=== PATIENT | female | born 1930 | race Two or more races ===

== ENCOUNTER 2016-11-23 21:13 | Inpatient (IN) | payer OTHER, MEDICARE ==
[~2016-11-23] VITALS: Ht 157.5 cm; Wt 75.7 kg
[~2016-11-23 21:13] MED LIST: FEE EMEERGENCY 1 MIN EA MC ONE
[2016-11-23] MEDS ORDERED: HYDROMORPHONE INJ 2 MG/ML DISP.SYRIN IV ONE (22:30)
[2016-11-23] MEDS ORDERED: ONDANSETRON HCL/PF 4 MG/2 ML VIAL IVP ONE (22:30)
[2016-11-23] MEDS ORDERED: IV NS 0.9% 1,000 ML BAG IV ONE (22:30)
[2016-11-23] MEDS ORDERED: IV SET PRIMARY 1 EA INFUS.SET MC ONE (22:43)
[2016-11-23] MEDS ORDERED: ONDANSETRON HCL/PF 4 MG/2 ML VIAL ONE (22:43)
[2016-11-23] MEDS ORDERED: IV NS 0.9% 1,000 ML ONE (22:43)
[2016-11-23] MEDS ORDERED: HYDROMORPHONE 1 MG/1 ML DISP.SYRIN ONE (22:43)
[2016-11-23] MEDS ORDERED: LEVOFLOXACIN 750 MG /D5W 150ML 150 ML IV ONE ×2 (23:30→23:37)
[2016-11-23 23:32] LABS: BASOPHILS % (AUTO) 0.2 % (0.0-2.0); DIFF TOTAL % 100 %; EOSINOPHILS % (AUTO) 0.1 % (0.0-6.0); HEMATOCRIT 40 % (33-45); HEMOGLOBIN 13.3 g/dL (11.5-14.8); LYMPHOCYTES # (AUTO) 0.6 /CMM (0.8-4.8); MEAN CORPUSCULAR HEMOGLOBIN 31 PG (26.0-33.0); MEAN CORPUSCULAR HGB CONC 34 g/dl (31.0-36.0); MEAN CORPUSCULAR VOLUME 91 fL (82-100); MONOCYTES % (AUTO) 8.7 % (2.0-12.0); NEUTROPHILS # (AUTO) 9.7 /CMM (1.8-8.9); PLATELET COUNT (AUTO) 273 /CMM (150-450); RED BLOOD CELL COUNT(AUTO) 4.36 MIL/uL (4.0-5.2); WHITE BLOOD COUNT (AUTO) 11.3 K/uL (4.3-11.0)
[2016-11-23 23:37] LABS: CALCIUM, SERUM 9.9 mg/dL (8.5-10.1); CREATININE 1.4 mg/dL (0.6-1.3); POTASSIUM 4.1 mmol/L (3.5-5.1)
[2016-11-23] MEDS ORDERED: IV SET PRIMARY PUMP SET 1 EA INFUS.SET MC ONE (23:37)
[2016-11-23 23:41] LABS: INR 1.59 (0.87-1.13); PROTHROMBIN TIME 17.2 SECS (9.5-12.7)
[2016-11-23 23:43] LABS: ALBUMIN 4.1 g/dL (3.4-5.0); BILIRUBIN,DIRECT 0.4 mg/dL (0.0-0.2); BILIRUBIN,TOTAL 1.3 mg/dL (0.2-1.0); INDIRECT BILIRUBIN 0.9 mg/dL (0.0-1.1); TOTAL PROTEIN, SERUM 7.8 g/dL (6.4-8.2)
[2016-11-23 23:44] LABS: TROPONIN I 0.374 ng/mL (0.00-0.056)
[2016-11-23 23:50] LABS: ADD UA MICROSCOPIC YES; KETONES,URINE NEGATIVE (NEGATIVE); LEUKOCYTE ESTERASE ,URINE 1+ (NEGATIVE)
[2016-11-23] MEDS ORDERED: LORAZEPAM INJ 2 MG/ML VIAL ONE (23:54)
[2016-11-23 23:57] LABS: ADD URINE CULTURE YES; RBC,URINE 0-2 /HPF (0-2); WBC,URINE 21-50 /HPF (0-3)
[2016-11-24] VITALS (8 sets, daily range): BP systolic 94–157; BP diastolic 40–93
[2016-11-24] MEDS ORDERED: NITROGLYCERIN PACKET 1 GM PACKET ONE (00:26)
[2016-11-24] MEDS ORDERED: ASPIRIN 81 MG TAB.CHEW ONE (00:26)
[2016-11-24] MEDS ORDERED: NITROGLYCERIN PACKET 1 GM PACKET TOP ONE (00:30)
[2016-11-24] MEDS ORDERED: PIPERACILLIN /TAZOBACTAM 3.375 G in IV D5W 50 ML IV ONE (00:30)
[2016-11-24] MEDS ORDERED: ASPIRIN 81 MG TAB.CHEW PO ONE (00:30)
[2016-11-24 00:31] LABS: LACTIC ACID 2.3 mmol/L (0.4-2.0)
[2016-11-24] MEDS ORDERED: HYDROCODONE/APAP 5/325MG 1 EACH TABLET PO PRN (01:00)
[2016-11-24] MEDS ORDERED: ENOXAPARIN SODIUM 40 MG/0.4 ML DISP.SYRIN SQ SCH (01:00)
[2016-11-24] MEDS ORDERED: MAG HYDROX/AL HYDROX/SIMETH 30 ML UDC PO PRN (01:00)
[2016-11-24] MEDS ORDERED: ACETAMINOPHEN 325 MG TABLET PO PRN (01:00)
[2016-11-24] MEDS ORDERED: ZOLPIDEM TARTRATE 5 MG TABLET PO PRN (01:00)
[2016-11-24] MEDS ORDERED: MAGNESIUM HYDROXIDE 30 ML UDC PO PRN (01:00)
[2016-11-24 01:02] LABS: *LACTIC ACID REFLEX FLAG YES
[2016-11-24] MEDS ORDERED: IV D5W 50 ML IV ONE (02:06)
[2016-11-24] MEDS ORDERED: PIPERACILLIN /TAZOBACTAM 3.375 G VIAL IV ONE (02:06)
[2016-11-24] MEDS ORDERED: IV SET PRIMARY PUMP SET 1 EA INFUS.SET MC ONE (02:13)
[2016-11-24] MEDS ORDERED: IV NS 0.9% 1,000 ML ONE (02:14)
[2016-11-24] MEDS ORDERED: SECONDARY IV SET 1 EA INFUS.SET MC ONE ×2 (02:14→12:48)
[2016-11-24] MEDS: IV NS 0.9% 1,000 ML IV PRN ×2 (02:32→23:24)
[2016-11-24] MEDS ORDERED: ONDANSETRON HCL/PF 4 MG/2 ML VIAL ONE (03:16)
[2016-11-24] MEDS ORDERED: MORPHINE SULFATE INJ 4 MG/ML DISP.SYRIN ONE (04:25)
[2016-11-24] MEDS: ONDANSETRON HCL/PF 4 MG/2 ML VIAL IVP PRN ×2 (04:27→15:40)
[2016-11-24] MEDS: MORPHINE SULFATE INJ 2 MG/ML DISP.SYRIN IV PRN ×2 (04:36→09:13)
[2016-11-24] MEDS ORDERED: POTA10CA43 PO (06:39)
[2016-11-24] MEDS ORDERED: WARF4TAB6 PO (06:39)
[2016-11-24] MEDS ORDERED: FURO40TA5 PO (06:39)
[2016-11-24] MEDS ORDERED: DIGO125T PO (06:39)
[2016-11-24] MEDS ORDERED: ASPI81TA2 PO (06:39)
[2016-11-24] MEDS ORDERED: ATOR80TA PO (06:39)
[2016-11-24] MEDS ORDERED: METO-304 PO (06:39)
[2016-11-24 06:47] LABS: BASOPHILS % (AUTO) 0.3 % (0.0-2.0); DIFF TOTAL % 100 %; EOSINOPHILS % (AUTO) 0.1 % (0.0-6.0); HEMATOCRIT 34 % (33-45); HEMOGLOBIN 11.2 g/dL (11.5-14.8); LYMPHOCYTES # (AUTO) 0.4 /CMM (0.8-4.8); MEAN CORPUSCULAR HEMOGLOBIN 30 PG (26.0-33.0); MEAN CORPUSCULAR HGB CONC 33 g/dl (31.0-36.0); MEAN CORPUSCULAR VOLUME 91 fL (82-100); MONOCYTES # (AUTO) 0.8 /CMM (0.1-1.30); MONOCYTES % (AUTO) 11.2 % (2.0-12.0); NEUTROPHILS # (AUTO) 5.9 /CMM (1.8-8.9); NEUTROPHILS % (AUTO) 83.4 % (43.0-81.0); PLATELET COUNT (AUTO) 222 /CMM (150-450); RED BLOOD CELL COUNT(AUTO) 3.71 MIL/uL (4.0-5.2); WHITE BLOOD COUNT (AUTO) 7.1 K/uL (4.3-11.0)
[2016-11-24 06:58] LABS: ALBUMIN 3.1 g/dL (3.4-5.0); CALCIUM, SERUM 8.7 mg/dL (8.5-10.1); CREATININE 1.3 mg/dL (0.6-1.3); PHOSPHORUS 3.7 mg/dL (2.5-4.9); POTASSIUM 4.2 mmol/L (3.5-5.1); TOTAL PROTEIN, SERUM 6.2 g/dL (6.4-8.2)
[2016-11-24 07:01] LABS: LACTIC ACID 1.3 mmol/L (0.4-2.0)
[2016-11-24] MEDS: PANTOPRAZOLE 40 MG VIAL IV SCH (08:42)
[2016-11-24] MEDS ORDERED: DIATR MEGLU/DIATRIZOATE SODIUM 120 ML BOTTLE (GASTROGRAPHIN) ONE (10:18)
[2016-11-24] MEDS: Magnesium 1GM/D5W 100ML PREMIX 100 ML IV SCH ×2 (12:56→14:21)
[2016-11-24] MEDS ORDERED: TPN/PPN PER PHARMACY XX PRN (19:00)
[2016-11-24] MEDS: ENOXAPARIN SODIUM 30 MG/0.3 ML DISP.SYRIN SQ SCH (21:55)
[2016-11-25] VITALS: BP 121/74
[2016-11-25] MEDS: MORPHINE SULFATE INJ 2 MG/ML DISP.SYRIN IV PRN (01:58)
[2016-11-25 04:00] VITALS: BP 110/47
[2016-11-25 08:00] VITALS: BP 110/65
[2016-11-25 08:06] LABS: CALCIUM, SERUM 8.3 mg/dL (8.5-10.1); CREATININE 1.6 mg/dL (0.6-1.3); POTASSIUM 3.5 mmol/L (3.5-5.1)
[2016-11-25] MEDS: PANTOPRAZOLE 40 MG VIAL IV SCH (08:45)
[2016-11-25] MEDS ORDERED: IV D5/0.45 NACL 1,000 ML IV PRN (10:53)
[2016-11-25] MEDS ORDERED: TPN BAG #2 IV PRN ×4 (11:00)
[2016-11-25] MEDS ORDERED: TPN BAG #1 IV PRN ×6 (11:00)
[2016-11-25] MEDS ORDERED: TPN BAG #3 IV PRN ×6 (11:00)
[2016-11-25] MEDS ORDERED: FEE TPN 1 MIN EA MC ONE (11:24)
[2016-11-25] MEDS ORDERED: DEXTROSE 50%-WATER 50 ML DISP.SYRIN IV PRN (11:30)
[2016-11-25] MEDS: BLOOD SUGAR DIAGNOSTIC 1 EACH STRIP IN SCH ×2 (11:38→17:10)
[2016-11-25 12:00] VITALS: BP 117/47
[2016-11-25] MEDS ORDERED: FILTER SET SAVER IV SET 1 EA INFUS.SET MC ONE (14:24)
[2016-11-25] MEDS ORDERED: IV SET PRIMARY PUMP SET 1 EA INFUS.SET MC ONE (14:25)
[2016-11-25 16:00] VITALS: BP 132/69
[2016-11-25] MEDS: INSULIN REGULAR, HUMAN 100 UNIT/ML 3 ML VIAL SQ PRN (17:12)
[2016-11-25 20:00] VITALS: BP 111/66
[2016-11-25] MEDS: ENOXAPARIN SODIUM 30 MG/0.3 ML DISP.SYRIN SQ SCH (21:36)
[2016-11-26] VITALS: BP 107/56
[2016-11-26] MEDS: BLOOD SUGAR DIAGNOSTIC 1 EACH STRIP IN SCH ×4 (00:04→17:41)
[2016-11-26] MEDS: INSULIN REGULAR, HUMAN 100 UNIT/ML 3 ML VIAL SQ PRN ×3 (00:09→12:22)
[2016-11-26 04:00] VITALS: BP 114/49
[2016-11-26] MEDS ORDERED: IV SET PRIMARY PUMP SET 1 EA INFUS.SET MC ONE (04:46)
[2016-11-26] MEDS ORDERED: FILTER SET SAVER IV SET 1 EA INFUS.SET MC ONE (05:16)
[2016-11-26] MEDS ORDERED: IV D5W 50 ML IV ONE (06:53)
[2016-11-26] MEDS ORDERED: CEFTRIAXONE 1 G VIAL ONE (06:53)
[2016-11-26] MEDS ORDERED: SECONDARY IV SET 1 EA INFUS.SET MC ONE (06:55)
[2016-11-26 07:00] VITALS: BP 106/74
[2016-11-26] MEDS ORDERED: CEFTRIAXONE 1 G in IV D5W 50 ML IV SCH (07:00)
[2016-11-26 07:12] LABS: THYROID STIMULATING HORMONE 0.726 uIU/mL (0.358-3.74)
[2016-11-26 07:29] LABS: CALCIUM, SERUM 8.3 mg/dL (8.5-10.1); CREATININE 1.3 mg/dL (0.6-1.3); PHOSPHORUS 2.5 mg/dL (2.5-4.9); POTASSIUM 3.5 mmol/L (3.5-5.1)
[2016-11-26] MEDS: PANTOPRAZOLE 40 MG VIAL IV SCH (09:17)
[2016-11-26] MEDS ORDERED: TPN BAG #3 IV PRN ×6 (09:51)
[2016-11-26] MEDS ORDERED: TPN BAG #5 IV PRN ×6 (10:00)
[2016-11-26] MEDS ORDERED: TPN BAG #4 IV PRN ×4 (10:00)
[2016-11-26 12:00] VITALS: BP 124/77
[2016-11-26] MEDS: MORPHINE SULFATE INJ 2 MG/ML DISP.SYRIN IV PRN (12:16)
[2016-11-26] MEDS: ONDANSETRON HCL/PF 4 MG/2 ML VIAL IVP PRN (14:04)
[2016-11-26 16:00] VITALS: BP 128/63
[2016-11-26] MEDS ORDERED: FERROUS SULFATE (325 MG) 325 MG/TAB TABLET PO SCH (17:00)
[2016-11-26 20:00] VITALS: BP 128/61
[2016-11-26] MEDS: ENOXAPARIN SODIUM 30 MG/0.3 ML DISP.SYRIN SQ SCH (21:00)
[2016-11-27] VITALS: BP 133/79
[2016-11-27] MEDS: BLOOD SUGAR DIAGNOSTIC 1 EACH STRIP IN SCH ×4 (00:15→17:49)
[2016-11-27] MEDS: INSULIN REGULAR, HUMAN 100 UNIT/ML 3 ML VIAL SQ PRN ×3 (00:17→18:04)
[2016-11-27 04:00] VITALS: BP 125/91
[2016-11-27] MEDS: IV D5/0.45 NACL 1,000 ML IV PRN (05:14)
[2016-11-27] MEDS: CEFTRIAXONE 1 G in IV D5W 50 ML IV SCH (06:28)
[2016-11-27] MEDS ORDERED: IV SET PRIMARY PUMP SET 1 EA INFUS.SET MC ONE ×2 (07:15→14:45)
[2016-11-27] MEDS ORDERED: FILTER SET SAVER IV SET 1 EA INFUS.SET MC ONE (07:16)
[2016-11-27 08:00] VITALS: BP 143/83
[2016-11-27 09:24] LABS: CALCIUM, SERUM 8.4 mg/dL (8.5-10.1); PHOSPHORUS 1.9 mg/dL (2.5-4.9); POTASSIUM 3.4 mmol/L (3.5-5.1)
[2016-11-27] MEDS: PANTOPRAZOLE 40 MG VIAL IV SCH (09:26)
[2016-11-27] MEDS: MORPHINE SULFATE INJ 2 MG/ML DISP.SYRIN IV PRN (10:22)
[2016-11-27 10:25] LABS: DIFF TOTAL % 100 %; EOSINOPHILS # (AUTO) 0.1 /CMM (0.0-0.7); EOSINOPHILS % (AUTO) 0.7 % (0.0-6.0); HEMATOCRIT 32 % (33-45); HEMOGLOBIN 10.6 g/dL (11.5-14.8); LYMPHOCYTES # (AUTO) 0.5 /CMM (0.8-4.8); LYMPHOCYTES % (AUTO) 4.6 % (20.0-44.0); MEAN CORPUSCULAR HEMOGLOBIN 30 PG (26.0-33.0); MEAN CORPUSCULAR HGB CONC 33 g/dl (31.0-36.0); MEAN CORPUSCULAR VOLUME 90 fL (82-100); MONOCYTES # (AUTO) 0.6 /CMM (0.1-1.30); NEUTROPHILS % (AUTO) 89.7 % (43.0-81.0); PLATELET COUNT (AUTO) 186 /CMM (150-450); RED BLOOD CELL COUNT(AUTO) 3.53 MIL/uL (4.0-5.2); WHITE BLOOD COUNT (AUTO) 11.1 K/uL (4.3-11.0)
[2016-11-27] MEDS ORDERED: SECONDARY IV SET 1 EA INFUS.SET MC ONE (11:18)
[2016-11-27] MEDS: POTASSIUM PHOSPHATE MM 7.5 MMOL in IV D5W 100 ML IV SCH ×2 (11:28→16:07)
[2016-11-27] MEDS: CYANOCOBALAMIN 1,000 MCG/ML VIAL IM SCH (12:49)
[2016-11-27] MEDS ORDERED: ALBUTEROL FS 2.5 MG/3 ML VIAL.NEB NEB PRN (14:30)
[2016-11-27] MEDS: SOD FERRIC GLUC 125 MG in IV NS 0.9% 100 ML IV SCH (14:49)
[2016-11-27 16:00] VITALS: BP 123/73
[2016-11-27] MEDS ORDERED: TPN BAG #6 IV PRN ×4 (16:00)
[2016-11-27] MEDS ORDERED: ACETYLCYSTEINE 10% 3,000 MG/30 ML VIAL PO SCH (17:00)
[2016-11-27 20:00] VITALS: BP 110/69
[2016-11-27 21:16] VITALS: BP 106/59
[2016-11-27] MEDS: ENOXAPARIN SODIUM 30 MG/0.3 ML DISP.SYRIN SQ SCH (21:53)
[2016-11-28] MEDS ORDERED: FILTER SET SAVER IV SET 1 EA INFUS.SET MC ONE ×2 (01:02→14:31)
[2016-11-28] MEDS ORDERED: IV SET PRIMARY PUMP SET 1 EA INFUS.SET MC ONE ×2 (01:04→15:30)
[2016-11-28] MEDS: BLOOD SUGAR DIAGNOSTIC 1 EACH STRIP IN SCH ×4 (01:15→18:57)
[2016-11-28 04:00] VITALS: BP 125/78
[2016-11-28] MEDS: CEFTRIAXONE 1 G in IV D5W 50 ML IV SCH (06:29)
[2016-11-28 07:36] LABS: CALCIUM, SERUM 8.6 mg/dL (8.5-10.1); CREATININE 0.9 mg/dL (0.6-1.3); PHOSPHORUS 2.4 mg/dL (2.5-4.9); POTASSIUM 3.6 mmol/L (3.5-5.1)
[2016-11-28 08:38] VITALS: BP 122/65
[2016-11-28] MEDS: MORPHINE SULFATE INJ 2 MG/ML DISP.SYRIN IV PRN ×2 (09:29→13:25)
[2016-11-28] MEDS: PANTOPRAZOLE 40 MG VIAL IV SCH (09:29)
[2016-11-28] MEDS: CYANOCOBALAMIN 1,000 MCG/ML VIAL IM SCH (10:40)
[2016-11-28 12:00] VITALS: BP 121/81
[2016-11-28] MEDS ORDERED: PHYTONADIONE 5 MG TABLET PO ONE (12:00)
[2016-11-28 12:50] LABS: BASOPHILS % (AUTO) 0.1 % (0.0-2.0); DIFF TOTAL % 100 %; EOSINOPHILS # (AUTO) 0.2 /CMM (0.0-0.7); EOSINOPHILS % (AUTO) 1.4 % (0.0-6.0); HEMATOCRIT 34 % (33-45); HEMOGLOBIN 11.3 g/dL (11.5-14.8); LYMPHOCYTES # (AUTO) 0.5 /CMM (0.8-4.8); LYMPHOCYTES % (AUTO) 4.2 % (20.0-44.0); MEAN CORPUSCULAR HEMOGLOBIN 30 PG (26.0-33.0); MEAN CORPUSCULAR HGB CONC 34 g/dl (31.0-36.0); MEAN CORPUSCULAR VOLUME 89 fL (82-100); MONOCYTES # (AUTO) 0.6 /CMM (0.1-1.30); MONOCYTES % (AUTO) 5.2 % (2.0-12.0); NEUTROPHILS # (AUTO) 9.5 /CMM (1.8-8.9); NEUTROPHILS % (AUTO) 89.1 % (43.0-81.0); PLATELET COUNT (AUTO) 207 /CMM (150-450); RED BLOOD CELL COUNT(AUTO) 3.76 MIL/uL (4.0-5.2); WHITE BLOOD COUNT (AUTO) 10.6 K/uL (4.3-11.0)
[2016-11-28] MEDS ORDERED: FUROSEMIDE 20 MG/2 ML VIAL IV ONE (13:00)
[2016-11-28] MEDS ORDERED: FAT EMULSION 20% 500 ML in PREMIX 1 EA IV SCH (14:00)
[2016-11-28] MEDS ORDERED: TPN BAG #8 IV PRN ×4 (14:00)
[2016-11-28] MEDS ORDERED: TPN BAG #7 IV PRN ×6 (14:00)
[2016-11-28] MEDS: ONDANSETRON HCL/PF 4 MG/2 ML VIAL IVP PRN (14:04)
[2016-11-28] MEDS ORDERED: FILTER [FOR TRIPLE MIX] SET 1 EA INFUS.SET MC ONE (14:32)
[2016-11-28] MEDS: SOD FERRIC GLUC 125 MG in IV NS 0.9% 100 ML IV SCH (14:55)
[2016-11-28] MEDS ORDERED: SECONDARY IV SET 1 EA INFUS.SET MC ONE (15:30)
[2016-11-28 20:00] VITALS: BP 137/70
[2016-11-29] VITALS (20 sets, daily range): BP systolic 91–154; BP diastolic 46–89
[2016-11-29] MEDS: BLOOD SUGAR DIAGNOSTIC 1 EACH STRIP IN SCH ×4 (00:51→18:00)
[2016-11-29] MEDS: MORPHINE SULFATE INJ 2 MG/ML DISP.SYRIN IV PRN ×4 (04:28→12:39)
[2016-11-29] MEDS ORDERED: IV SET PRIMARY PUMP SET 1 EA INFUS.SET MC ONE ×3 (06:37→20:53)
[2016-11-29] MEDS ORDERED: FILTER SET SAVER IV SET 1 EA INFUS.SET MC ONE (06:38)
[2016-11-29] MEDS: CEFTRIAXONE 1 G in IV D5W 50 ML IV SCH (07:06)
[2016-11-29] MEDS: IV D5/0.45 NACL 1,000 ML IV PRN ×2 (07:06→20:42)
[2016-11-29 07:29] LABS: BASOPHILS % (AUTO) 0.1 % (0.0-2.0); DIFF TOTAL % 100 %; EOSINOPHILS # (AUTO) 0.2 /CMM (0.0-0.7); EOSINOPHILS % (AUTO) 1.4 % (0.0-6.0); HEMATOCRIT 34 % (33-45); HEMOGLOBIN 11.5 g/dL (11.5-14.8); LYMPHOCYTES # (AUTO) 0.6 /CMM (0.8-4.8); MEAN CORPUSCULAR HEMOGLOBIN 30 PG (26.0-33.0); MEAN CORPUSCULAR HGB CONC 34 g/dl (31.0-36.0); MEAN CORPUSCULAR VOLUME 89 fL (82-100); MONOCYTES # (AUTO) 1.2 /CMM (0.1-1.30); MONOCYTES % (AUTO) 7.8 % (2.0-12.0); NEUTROPHILS # (AUTO) 13.9 /CMM (1.8-8.9); NEUTROPHILS % (AUTO) 86.7 % (43.0-81.0); PLATELET COUNT (AUTO) 219 /CMM (150-450); RED BLOOD CELL COUNT(AUTO) 3.82 MIL/uL (4.0-5.2)
[2016-11-29 07:36] LABS: INR 1.03 (0.87-1.13); PROTHROMBIN TIME 11.1 SECS (9.5-12.7)
[2016-11-29 07:42] LABS: CALCIUM, SERUM 8.4 mg/dL (8.5-10.1); CREATININE 0.8 mg/dL (0.6-1.3); PHOSPHORUS 2.8 mg/dL (2.5-4.9); POTASSIUM 3.6 mmol/L (3.5-5.1)
[2016-11-29] MEDS ORDERED: TPN BAG #8 IV PRN ×5 (09:38)
[2016-11-29] MEDS: CYANOCOBALAMIN 1,000 MCG/ML VIAL IM SCH (09:43)
[2016-11-29] MEDS: PANTOPRAZOLE 40 MG VIAL IV SCH (09:43)
[2016-11-29] MEDS ORDERED: TPN BAG #9 IV PRN ×7 (10:00)
[2016-11-29] MEDS ORDERED: MORPHINE SULFATE INJ 4 MG/ML DISP.SYRIN IV PRN (13:30)
[2016-11-29] MEDS: SOD FERRIC GLUC 125 MG in IV NS 0.9% 100 ML IV SCH (14:25)
[2016-11-29] MEDS ORDERED: FENTANYL PF 100MCG/2ML AMPUL ONE ×2 (17:00→18:26)
[2016-11-29] MEDS ORDERED: SUCCINYLCHOLINE CHLORIDE 20 MG/ML VIAL ONE (17:00)
[2016-11-29] MEDS ORDERED: BUPIVACAINE 0.5 % PF 150 MG/30 ML VIAL ONE (18:58)
[2016-11-29] MEDS ORDERED: ANESTHESIA TRAY IN PYXIS 1 EA TRAY MC ONE (19:29)
[2016-11-29 20:23] LABS: BASOPHILS % (AUTO) 0.1 % (0.0-2.0); DIFF TOTAL % 100 %; EOSINOPHILS % (AUTO) 0.2 % (0.0-6.0); HEMATOCRIT 36 % (33-45); LYMPHOCYTES # (AUTO) 0.5 /CMM (0.8-4.8); LYMPHOCYTES % (AUTO) 2.4 % (20.0-44.0); MEAN CORPUSCULAR HEMOGLOBIN 30 PG (26.0-33.0); MEAN CORPUSCULAR HGB CONC 33 g/dl (31.0-36.0); MEAN CORPUSCULAR VOLUME 91 fL (82-100); MONOCYTES % (AUTO) 4.7 % (2.0-12.0); NEUTROPHILS # (AUTO) 20.1 /CMM (1.8-8.9); NEUTROPHILS % (AUTO) 92.6 % (43.0-81.0); PLATELET COUNT (AUTO) 268 /CMM (150-450); RED BLOOD CELL COUNT(AUTO) 3.99 MIL/uL (4.0-5.2); WHITE BLOOD COUNT (AUTO) 21.7 K/uL (4.3-11.0)
[2016-11-29 20:24] LABS: CALCIUM, SERUM 8.3 mg/dL (8.5-10.1); CREATININE 0.9 mg/dL (0.6-1.3); POTASSIUM 3.8 mmol/L (3.5-5.1)
[2016-11-29] MEDS ORDERED: DOCUSATE SODIUM 250 MG CAPSULE PO PRN (20:30)
[2016-11-29] MEDS ORDERED: HYDROMORPHONE 1 MG/1 ML DISP.SYRIN IV PRN (20:30)
[2016-11-29] MEDS ORDERED: ACETAMINOPHEN 325 MG TABLET PO PRN (20:30)
[2016-11-29 20:46] LABS: ABG BASE EXCESS -2.5 mmol/L; ABG PCO2 37.1 mmHg (35.0-45.0); ABG PO2 77.5 mmHg (75.0-100.0); ABG TOTAL HEMOGLOBIN 13.1 G/dL (12.0-16.0); AaDO2 92.8 mmHg; O2Hb 92.5 % (94.0-97.0)
[2016-11-29 20:59] LABS: ANISOCYTOSIS 1+; BURR CELLS 1+; LYMPHOCYTES % (MANUAL) 4 % (16-48); PLATELET ESTIMATE ADEQUATE; POIKILOCYTOSIS 1+
[2016-11-29] MEDS: PROPOFOL 100 ML IV PRN (21:06)
[2016-11-30] VITALS (67 sets, daily range): BP systolic 75–154; BP diastolic 30–77
[2016-11-30] MEDS: BLOOD SUGAR DIAGNOSTIC 1 EACH STRIP IN SCH ×5 (00:06→23:39)
[2016-11-30] MEDS: INSULIN REGULAR, HUMAN 100 UNIT/ML 3 ML VIAL SQ PRN ×2 (00:10→05:33)
[2016-11-30] MEDS ORDERED: FILTER SET SAVER IV SET 1 EA INFUS.SET MC ONE ×2 (02:30→16:21)
[2016-11-30] MEDS ORDERED: IV SET PRIMARY PUMP SET 1 EA INFUS.SET MC ONE ×3 (02:30→20:09)
[2016-11-30] MEDS: NOREPINEPHRINE 8 MG in IV D5W 500 ML IV PRN ×2 (04:24→16:24)
[2016-11-30 05:02] LABS: CALCIUM, SERUM 8.2 mg/dL (8.5-10.1); POTASSIUM 4.3 mmol/L (3.5-5.1)
[2016-11-30] MEDS ORDERED: SECONDARY IV SET 1 EA INFUS.SET MC ONE ×2 (05:15→17:42)
[2016-11-30] MEDS: CEFTRIAXONE 1 G in IV D5W 50 ML IV SCH (05:16)
[2016-11-30] MEDS: CYANOCOBALAMIN 1,000 MCG/ML VIAL IM SCH (08:40)
[2016-11-30] MEDS: PROPOFOL 100 ML IV PRN ×3 (08:40→23:43)
[2016-11-30] MEDS: PANTOPRAZOLE 40 MG VIAL IV SCH (08:41)
[2016-11-30] MEDS: MORPHINE SULFATE INJ 2 MG/ML DISP.SYRIN IV PRN (08:48)
[2016-11-30] MEDS ORDERED: TPN IV PRN ×8 (09:54)
[2016-11-30] MEDS ORDERED: TPN BAG #10 IV PRN ×14 (10:00→12:36)
[2016-11-30] MEDS ORDERED: IV NS 0.9% 250 ML IV ONE (12:43)
[2016-11-30] MEDS ORDERED: CT SWABBABLE VALVE TRANS SET 1 EA INFUS.SET MC ONE (12:44)
[2016-11-30] MEDS ORDERED: IOHEXOL-350 100 ML VIAL IV ONE (12:44)
[2016-11-30] MEDS: SOD FERRIC GLUC 125 MG in IV NS 0.9% 100 ML IV SCH (16:21)
[2016-11-30] MEDS ORDERED: MEROPENEM 500 MG in IV NS 0.9% 50 ML IV SCH (16:30)
[2016-11-30] MEDS ORDERED: FEE PK DOSING 1 MIN EA MC ONE (16:48)
[2016-11-30] MEDS: MEROPENEM 1 G in IV NS 0.9% 100 ML IV SCH (17:41)
[2016-11-30] MEDS: VANCOMYCIN 0.75 GM in IV D5W 250 ML IV SCH (17:41)
[2016-12-01] VITALS (44 sets, daily range): BP systolic 56–163; BP diastolic 25–94
[2016-12-01] MEDS: MEROPENEM 1 G in IV NS 0.9% 100 ML IV SCH ×2 (05:07→16:06)
[2016-12-01 05:30] LABS: CALCIUM, SERUM 8.3 mg/dL (8.5-10.1); PHOSPHORUS 3.7 mg/dL (2.5-4.9); POTASSIUM 4.1 mmol/L (3.5-5.1)
[2016-12-01] MEDS: INSULIN REGULAR, HUMAN 100 UNIT/ML 3 ML VIAL SQ PRN (05:54)
[2016-12-01] MEDS: BLOOD SUGAR DIAGNOSTIC 1 EACH STRIP IN SCH ×3 (05:55→17:08)
[2016-12-01] MEDS ORDERED: IV SET PRIMARY PUMP SET 1 EA INFUS.SET MC ONE ×2 (06:35→19:11)
[2016-12-01] MEDS ORDERED: FILTER SET SAVER IV SET 1 EA INFUS.SET MC ONE ×2 (06:36→19:11)
[2016-12-01] MEDS ORDERED: TPN BAG #12 IV PRN ×6 (07:30)
[2016-12-01] MEDS ORDERED: TPN IV PRN ×8 (07:30)
[2016-12-01 07:42] LABS: BASOPHILS % (AUTO) 0.2 % (0.0-2.0); DIFF TOTAL % 100 %; EOSINOPHILS # (AUTO) 0.6 /CMM (0.0-0.7); EOSINOPHILS % (AUTO) 3.5 % (0.0-6.0); HEMATOCRIT 33 % (33-45); LYMPHOCYTES # (AUTO) 0.6 /CMM (0.8-4.8); LYMPHOCYTES % (AUTO) 3.3 % (20.0-44.0); MEAN CORPUSCULAR HEMOGLOBIN 30 PG (26.0-33.0); MEAN CORPUSCULAR HGB CONC 34 g/dl (31.0-36.0); MEAN CORPUSCULAR VOLUME 89 fL (82-100); MONOCYTES # (AUTO) 2.2 /CMM (0.1-1.30); NEUTROPHILS # (AUTO) 13.7 /CMM (1.8-8.9); PLATELET COUNT (AUTO) 231 /CMM (150-450); RED BLOOD CELL COUNT(AUTO) 3.67 MIL/uL (4.0-5.2); WHITE BLOOD COUNT (AUTO) 17.1 K/uL (4.3-11.0)
[2016-12-01] MEDS: IV D5/0.45 NACL 1,000 ML IV PRN (08:46)
[2016-12-01] MEDS: PANTOPRAZOLE 40 MG VIAL IV SCH (08:46)
[2016-12-01] MEDS: CYANOCOBALAMIN 1,000 MCG/ML VIAL IM SCH (08:46)
[2016-12-01] MEDS: PROPOFOL 100 ML IV PRN (08:47)
[2016-12-01] MEDS ORDERED: DC PROPOFOL WHEN EXTUBATED XX PRN (11:00)
[2016-12-01] MEDS: VANCOMYCIN 0.75 GM in IV D5W 250 ML IV SCH (11:39)
[2016-12-01] MEDS: SOD FERRIC GLUC 125 MG in IV NS 0.9% 100 ML IV SCH (14:49)
[2016-12-01 16:02] LABS: ABG BASE EXCESS -4.8 mmol/L; ABG HCO3 18.1 mmol/L; ABG PH 7.443 (7.350-7.450); ABG PO2 107.6 mmHg (75.0-100.0); ABG TOTAL HEMOGLOBIN 11.6 G/dL (12.0-16.0); ALLEN TEST Pass; AaDO2 74.6 mmHg; O2Hb 95.8 % (94.0-97.0)
[2016-12-01] MEDS: NYSTATIN (PYXIS) 500,000 UNIT/5 ML ORAL.SUSP PO SCH (17:01)
[2016-12-01] MEDS: MORPHINE SULFATE INJ 2 MG/ML DISP.SYRIN IV PRN (17:47)
[2016-12-02] VITALS (27 sets, daily range): BP systolic 97–162; BP diastolic 39–92
[2016-12-02] MEDS: MORPHINE SULFATE INJ 2 MG/ML DISP.SYRIN IV PRN ×5 (00:29→16:31)
[2016-12-02] MEDS ORDERED: DILTIAZEM HCL 50 MG IV ONE (00:38)
[2016-12-02] MEDS ORDERED: DILTIAZEM HCL 25 MG IV ONE (00:40)
[2016-12-02] MEDS ORDERED: IV SET PRIMARY PUMP SET 1 EA INFUS.SET MC ONE ×3 (00:40→23:04)
[2016-12-02] MEDS ORDERED: IV D5W 100 ML IV ONE (00:41)
[2016-12-02] MEDS ORDERED: DILTIAZEM HCL 25 MG IV IV ONE (01:00)
[2016-12-02] MEDS ORDERED: DILTIAZEM HCL IV 125 MG in IV D5W 100 ML IV PRN (01:00)
[2016-12-02] MEDS: MEROPENEM 1 G in IV NS 0.9% 100 ML IV SCH ×2 (04:35→16:30)
[2016-12-02 04:57] LABS: BASOPHILS % (AUTO) 0.2 % (0.0-2.0); DIFF TOTAL % 100 %; EOSINOPHILS # (AUTO) 0.3 /CMM (0.0-0.7); EOSINOPHILS % (AUTO) 1.6 % (0.0-6.0); HEMATOCRIT 32 % (33-45); HEMOGLOBIN 10.7 g/dL (11.5-14.8); LYMPHOCYTES # (AUTO) 0.5 /CMM (0.8-4.8); LYMPHOCYTES % (AUTO) 3.3 % (20.0-44.0); MEAN CORPUSCULAR HEMOGLOBIN 30 PG (26.0-33.0); MEAN CORPUSCULAR HGB CONC 34 g/dl (31.0-36.0); MEAN CORPUSCULAR VOLUME 90 fL (82-100); MONOCYTES # (AUTO) 1.7 /CMM (0.1-1.30); MONOCYTES % (AUTO) 10.4 % (2.0-12.0); NEUTROPHILS # (AUTO) 13.6 /CMM (1.8-8.9); NEUTROPHILS % (AUTO) 84.5 % (43.0-81.0); PLATELET COUNT (AUTO) 247 /CMM (150-450); RED BLOOD CELL COUNT(AUTO) 3.54 MIL/uL (4.0-5.2); WHITE BLOOD COUNT (AUTO) 16.1 K/uL (4.3-11.0)
[2016-12-02 05:09] LABS: CALCIUM, SERUM 8.3 mg/dL (8.5-10.1); PHOSPHORUS 3.6 mg/dL (2.5-4.9)
[2016-12-02] MEDS: VANCOMYCIN 0.75 GM in IV D5W 250 ML IV SCH (05:56)
[2016-12-02] MEDS: PANTOPRAZOLE 40 MG VIAL IV SCH (08:14)
[2016-12-02] MEDS: NYSTATIN (PYXIS) 500,000 UNIT/5 ML ORAL.SUSP PO SCH ×3 (08:14→16:28)
[2016-12-02] MEDS: CYANOCOBALAMIN 1,000 MCG/ML VIAL IM SCH (08:14)
[2016-12-02] MEDS: FUROSEMIDE 40 MG/4 ML VIAL IV SCH ×3 (08:14→16:28)
[2016-12-02] MEDS: BLOOD SUGAR DIAGNOSTIC 1 EACH STRIP IN SCH ×5 (08:17→23:46)
[2016-12-02] MEDS ORDERED: FILTER SET SAVER IV SET 1 EA INFUS.SET MC ONE ×2 (08:30→22:54)
[2016-12-02] MEDS ORDERED: SECONDARY IV SET 1 EA INFUS.SET MC ONE (08:33)
[2016-12-02] MEDS: POTASSIUM CL. PREMIX PERIPHER. 50 ML IV SCH ×2 (08:34→09:26)
[2016-12-02] MEDS: DIGOXIN INJ 0.5 MG/2 ML AMPUL IV SCH ×3 (10:35→17:10)
[2016-12-02 10:43] LABS: ABG BASE EXCESS -4.7 mmol/L; ABG HCO3 19.8 mmol/L; ABG PCO2 34.8 mmHg (35.0-45.0); ABG PH 7.374 (7.350-7.450); ABG PO2 84.8 mmHg (75.0-100.0); ABG TOTAL HEMOGLOBIN 11.2 G/dL (12.0-16.0); AaDO2 88.2 mmHg; O2Hb 94.1 % (94.0-97.0)
[2016-12-02] MEDS ORDERED: TPN BAG #14 IV PRN ×6 (11:00)
[2016-12-02] MEDS ORDERED: TPN BAG #13 IV PRN ×17 (11:00)
[2016-12-02] MEDS ORDERED: DIGOXIN INJ 0.5 MG/2 ML AMPUL IV SCH (12:00)
[2016-12-02 16:14] LABS: KETONES,URINE NEGATIVE (NEGATIVE); LEUKOCYTE ESTERASE ,URINE 2+ (NEGATIVE)
[2016-12-02] MEDS: ENOXAPARIN SODIUM 30 MG/0.3 ML DISP.SYRIN SQ SCH (16:28)
[2016-12-02 17:15] LABS: ADD UA MICROSCOPIC YES
[2016-12-02 17:17] LABS: ADD URINE CULTURE YES
[2016-12-02 17:44] LABS: INR 1.02 (0.87-1.13)
[2016-12-02] MEDS ORDERED: IV SET PRIMARY 1 EA INFUS.SET MC ONE (21:36)
[2016-12-02] MEDS: IV D5/0.45 NACL 1,000 ML IV PRN (22:17)
[2016-12-02] MEDS ORDERED: IV D5W 250 ML IV ONE (23:04)
[2016-12-02] MEDS: VANCOMYCIN 1 GM in IV D5W 250 ML IV SCH (23:40)
[2016-12-02] MEDS: INSULIN REGULAR, HUMAN 100 UNIT/ML 3 ML VIAL SQ PRN (23:56)
[2016-12-03] VITALS (27 sets, daily range): BP systolic 104–136; BP diastolic 46–70
[2016-12-03] MEDS: MORPHINE SULFATE INJ 2 MG/ML DISP.SYRIN IV PRN ×4 (02:19→22:42)
[2016-12-03 05:14] LABS: BASOPHILS # (AUTO) 0.1 /CMM (0.0-0.2); BASOPHILS % (AUTO) 0.7 % (0.0-2.0); DIFF TOTAL % 100 %; EOSINOPHILS # (AUTO) 0.4 /CMM (0.0-0.7); EOSINOPHILS % (AUTO) 2.5 % (0.0-6.0); HEMATOCRIT 30 % (33-45); HEMOGLOBIN 9.9 g/dL (11.5-14.8); LYMPHOCYTES # (AUTO) 0.3 /CMM (0.8-4.8); LYMPHOCYTES % (AUTO) 1.9 % (20.0-44.0); MEAN CORPUSCULAR HEMOGLOBIN 31 PG (26.0-33.0); MEAN CORPUSCULAR HGB CONC 33 g/dl (31.0-36.0); MEAN CORPUSCULAR VOLUME 92 fL (82-100); MONOCYTES # (AUTO) 0.8 /CMM (0.1-1.30); MONOCYTES % (AUTO) 4.8 % (2.0-12.0); NEUTROPHILS # (AUTO) 15.6 /CMM (1.8-8.9); NEUTROPHILS % (AUTO) 90.1 % (43.0-81.0); PLATELET COUNT (AUTO) 227 /CMM (150-450); RED BLOOD CELL COUNT(AUTO) 3.24 MIL/uL (4.0-5.2); WHITE BLOOD COUNT (AUTO) 17.3 K/uL (4.3-11.0)
[2016-12-03] MEDS: MEROPENEM 1 G in IV NS 0.9% 100 ML IV SCH ×2 (05:14→17:37)
[2016-12-03] MEDS: BLOOD SUGAR DIAGNOSTIC 1 EACH STRIP IN SCH ×4 (05:40→23:53)
[2016-12-03] MEDS: INSULIN REGULAR, HUMAN 100 UNIT/ML 3 ML VIAL SQ PRN ×3 (05:46→23:58)
[2016-12-03 06:14] LABS: BILIRUBIN,TOTAL 0.4 mg/dL (0.2-1.0); CALCIUM, SERUM 8.3 mg/dL (8.5-10.1); PHOSPHORUS 2.6 mg/dL (2.5-4.9); TOTAL PROTEIN, SERUM 5.8 g/dL (6.4-8.2)
[2016-12-03 06:18] LABS: BAND % (MANUAL) 4 % (0.0-5.0); EOSINOPHILS % (MANUAL) 3 % (0-4); LYMPHOCYTES % (MANUAL) 1 % (16-48)
[2016-12-03 06:24] LABS: ANISOCYTOSIS 1+; PLATELET ESTIMATE ADEQUATE
[2016-12-03] MEDS ORDERED: TPN IV PRN ×8 (07:00)
[2016-12-03] MEDS ORDERED: TPN BAG #16 IV PRN ×6 (07:00)
[2016-12-03] MEDS: CYANOCOBALAMIN 1,000 MCG/ML VIAL IM SCH (08:12)
[2016-12-03] MEDS: NYSTATIN (PYXIS) 500,000 UNIT/5 ML ORAL.SUSP PO SCH ×3 (08:12→17:37)
[2016-12-03] MEDS: ENOXAPARIN SODIUM 30 MG/0.3 ML DISP.SYRIN SQ SCH (08:12)
[2016-12-03] MEDS: PANTOPRAZOLE 40 MG VIAL IV SCH (08:12)
[2016-12-03] MEDS ORDERED: BUMETANIDE INJ 8 MG in IV NS 0.9% 48 ML IV ONE (09:00)
[2016-12-03] MEDS: FLUCONAZOLE IN NS 100 MG in PREMIX 1 EA IV SCH ×2 (11:38)
[2016-12-03] MEDS ORDERED: FILTER SET SAVER IV SET 1 EA INFUS.SET MC ONE (11:48)
[2016-12-03] MEDS: VANCOMYCIN 1 GM in IV D5W 250 ML IV SCH (18:14)
[2016-12-04] VITALS (25 sets, daily range): BP systolic 100–164; BP diastolic 45–78
[2016-12-04] MEDS: MEROPENEM 1 G in IV NS 0.9% 100 ML IV SCH ×2 (04:27→17:04)
[2016-12-04] MEDS: BLOOD SUGAR DIAGNOSTIC 1 EACH STRIP IN SCH ×4 (04:40→23:59)
[2016-12-04 04:48] LABS: DIFF TOTAL % 100 %; EOSINOPHILS # (AUTO) 0.3 /CMM (0.0-0.7); EOSINOPHILS % (AUTO) 1.9 % (0.0-6.0); HEMATOCRIT 30 % (33-45); HEMOGLOBIN 10.2 g/dL (11.5-14.8); LYMPHOCYTES # (AUTO) 0.5 /CMM (0.8-4.8); LYMPHOCYTES % (AUTO) 3.1 % (20.0-44.0); MEAN CORPUSCULAR HEMOGLOBIN 30 PG (26.0-33.0); MEAN CORPUSCULAR HGB CONC 34 g/dl (31.0-36.0); MEAN CORPUSCULAR VOLUME 90 fL (82-100); MONOCYTES # (AUTO) 0.6 /CMM (0.1-1.30); NEUTROPHILS # (AUTO) 13.7 /CMM (1.8-8.9); PLATELET COUNT (AUTO) 238 /CMM (150-450); RED BLOOD CELL COUNT(AUTO) 3.38 MIL/uL (4.0-5.2); WHITE BLOOD COUNT (AUTO) 15.1 K/uL (4.3-11.0)
[2016-12-04 04:55] LABS: CALCIUM, SERUM 8.3 mg/dL (8.5-10.1); PHOSPHORUS 2.5 mg/dL (2.5-4.9)
[2016-12-04 05:28] LABS: IRON, SERUM 35 ug/dl (50-175)
[2016-12-04] MEDS ORDERED: TPN BAG #16 IV PRN ×14 (08:43→08:48)
[2016-12-04] MEDS ORDERED: TPN BAG #17 IV PRN ×9 (09:00)
[2016-12-04] MEDS ORDERED: IV SET PRIMARY PUMP SET 1 EA INFUS.SET MC ONE ×3 (10:53→23:38)
[2016-12-04] MEDS ORDERED: SECONDARY IV SET 1 EA INFUS.SET MC ONE (10:53)
[2016-12-04] MEDS ORDERED: IV NS 0.9% 250 ML IV ONE (10:54)
[2016-12-04] MEDS: NYSTATIN (PYXIS) 500,000 UNIT/5 ML ORAL.SUSP PO SCH ×3 (10:58→17:05)
[2016-12-04] MEDS: PANTOPRAZOLE 40 MG VIAL IV SCH (10:58)
[2016-12-04] MEDS: CYANOCOBALAMIN 1,000 MCG/ML VIAL IM SCH (10:59)
[2016-12-04] MEDS: ENOXAPARIN SODIUM 30 MG/0.3 ML DISP.SYRIN SQ SCH (11:00)
[2016-12-04] MEDS: FLUCONAZOLE IN NS 100 MG in PREMIX 1 EA IV SCH ×2 (11:01)
[2016-12-04] MEDS: MORPHINE SULFATE INJ 2 MG/ML DISP.SYRIN IV PRN (12:34)
[2016-12-04] MEDS: INSULIN REGULAR, HUMAN 100 UNIT/ML 3 ML VIAL SQ PRN (12:34)
[2016-12-04] MEDS: VANCOMYCIN 1 GM in IV D5W 250 ML IV SCH (12:37)
[2016-12-04] MEDS ORDERED: FAT EMULSION 20% 500 ML in PREMIX 1 EA IV SCH (14:00)
[2016-12-04] MEDS ORDERED: POTASSIUM CL. PREMIX PERIPHER. 50 ML IV SCH ×2 (16:30→17:00)
[2016-12-04] MEDS ORDERED: FILTER SET SAVER IV SET 1 EA INFUS.SET MC ONE (16:56)
[2016-12-04] MEDS ORDERED: FUROSEMIDE 40 MG/4 ML VIAL IV STA (21:40)
[2016-12-04] MEDS ORDERED: FUROSEMIDE 40 MG/4 ML VIAL ONE (21:43)
[2016-12-04 22:00] LABS: ABG PCO2 63.2 mmHg (35.0-45.0); ABG PH 7.197 (7.350-7.450); ABG PO2 55.4 mmHg (75.0-100.0); ABG TOTAL HEMOGLOBIN 12.5 G/dL (12.0-16.0); AaDO2 594.4 mmHg; O2Hb 77.5 % (94.0-97.0)
[2016-12-04 23:14] LABS: ABG BASE EXCESS -6.2 mmol/L; ABG HCO3 24.6 mmol/L; ABG PCO2 78.1 mmHg (35.0-45.0); ABG PH 7.116 (7.350-7.450); ABG PO2 93.9 mmHg (75.0-100.0); ABG TOTAL HEMOGLOBIN 12.5 G/dL (12.0-16.0); ALLEN TEST Pass; O2Hb 92.4 % (94.0-97.0)
[2016-12-04] MEDS ORDERED: PROPOFOL 100 ML IV ONE (23:38)
[2016-12-05] VITALS (54 sets, daily range): BP systolic 86–152; BP diastolic 21–76
[2016-12-05] MEDS ORDERED: PROPOFOL 100 ML IV PRN
[2016-12-05] MEDS: INSULIN REGULAR, HUMAN 100 UNIT/ML 3 ML VIAL SQ PRN (00:13)
[2016-12-05] MEDS ORDERED: IV NS 0.9% 500 ML IV ONE ×3 (01:37→09:32)
[2016-12-05] MEDS ORDERED: IV NS 0.9% 250 ML IV ONE ×2 (01:42→17:02)
[2016-12-05] MEDS ORDERED: NOREPINEPHRINE 4 MG/4 ML AMPUL IV ONE (03:12)
[2016-12-05] MEDS ORDERED: IV D5W 500 ML IV ONE (03:12)
[2016-12-05] MEDS ORDERED: IV SET PRIMARY PUMP SET 1 EA INFUS.SET MC ONE ×2 (03:12→08:11)
[2016-12-05] MEDS: NOREPINEPHRINE 16 MG in IV D5W 500 ML IV PRN ×2 (03:21→13:18)
[2016-12-05] MEDS: MEROPENEM 1 G in IV NS 0.9% 100 ML IV SCH ×2 (04:13→17:08)
[2016-12-05 04:43] LABS: DIFF TOTAL % 100 %; HEMATOCRIT 32 % (33-45); HEMOGLOBIN 10.8 g/dL (11.5-14.8); LYMPHOCYTES # (AUTO) 0.7 /CMM (0.8-4.8); LYMPHOCYTES % (AUTO) 2.1 % (20.0-44.0); MEAN CORPUSCULAR HEMOGLOBIN 31 PG (26.0-33.0); MEAN CORPUSCULAR HGB CONC 34 g/dl (31.0-36.0); MEAN CORPUSCULAR VOLUME 91 fL (82-100); MONOCYTES # (AUTO) 1.8 /CMM (0.1-1.30); MONOCYTES % (AUTO) 5.5 % (2.0-12.0); NEUTROPHILS % (AUTO) 92.4 % (43.0-81.0); PLATELET COUNT (AUTO) 305 /CMM (150-450); RED BLOOD CELL COUNT(AUTO) 3.47 MIL/uL (4.0-5.2)
[2016-12-05] MEDS: BLOOD SUGAR DIAGNOSTIC 1 EACH STRIP IN SCH ×4 (05:07→23:46)
[2016-12-05] MEDS: VANCOMYCIN 1 GM in IV D5W 250 ML IV SCH (05:08)
[2016-12-05 05:26] LABS: WHITE BLOOD COUNT (AUTO) 32.5 K/uL (4.3-11.0)
[2016-12-05 05:36] LABS: CALCIUM, SERUM 8.3 mg/dL (8.5-10.1); CREATININE 1.3 mg/dL (0.6-1.3); PHOSPHORUS 3.3 mg/dL (2.5-4.9); POTASSIUM 4.1 mmol/L (3.5-5.1)
[2016-12-05 05:55] LABS: BAND % (MANUAL) 3 % (0.0-5.0); BASOPHILS % (MANUAL) 0 % (0.0-2.0); EOSINOPHILS % (MANUAL) 0 % (0-4); LYMPHOCYTES % (MANUAL) 2 % (16-48); PLATELET ESTIMATE ADEQUATE
[2016-12-05 05:56] LABS: ANISOCYTOSIS 1+
[2016-12-05] MEDS ORDERED: BUMETANIDE INJ 4 MG in IV NS 0.9% 24 ML IV ONE (07:30)
[2016-12-05] MEDS ORDERED: SECONDARY IV SET 1 EA INFUS.SET MC ONE (08:11)
[2016-12-05] MEDS: CYANOCOBALAMIN 1,000 MCG/ML VIAL IM SCH (08:36)
[2016-12-05] MEDS: NYSTATIN (PYXIS) 500,000 UNIT/5 ML ORAL.SUSP PO SCH ×3 (08:36→17:11)
[2016-12-05] MEDS: PANTOPRAZOLE 40 MG VIAL IV SCH (08:36)
[2016-12-05] MEDS: ENOXAPARIN SODIUM 30 MG/0.3 ML DISP.SYRIN SQ SCH (08:42)
[2016-12-05] MEDS: FLUCONAZOLE IN NS 100 MG in PREMIX 1 EA IV SCH ×2 (10:26)
[2016-12-05] MEDS ORDERED: IV NS 0.9% 1,000 ML IV PRN (11:30)
[2016-12-05] MEDS ORDERED: TPN BAG #18 IV PRN ×6 (12:30)
[2016-12-05] MEDS ORDERED: TPN BAG #19 IV PRN ×8 (12:30)
[2016-12-05] MEDS ORDERED: FILTER SET SAVER IV SET 1 EA INFUS.SET MC ONE (12:36)
[2016-12-05] MEDS: PROPOFOL 100 ML IV PRN ×2 (13:19→18:10)
[2016-12-05] MEDS ORDERED: ROCURONIUM BROMIDE 50 MG/5 ML IV ONE (14:11)
[2016-12-05] MEDS ORDERED: ETOMIDATE 2 MG/ML VIAL IV ONE (14:11)
[2016-12-05 17:32] LABS: ABG BASE EXCESS -0.6 mmol/L; ABG HCO3 23.8 mmol/L; ABG PCO2 38.2 mmHg (35.0-45.0); ABG PH 7.412 (7.350-7.450); ABG PO2 152.4 mmHg (75.0-100.0); ABG TOTAL HEMOGLOBIN 10.2 G/dL (12.0-16.0); ALLEN TEST Pass; AaDO2 161.1 mmHg; O2Hb 96.4 % (94.0-97.0)
[2016-12-05] MEDS: MICAFUNGIN SODIUM 100 MG in IV NS 0.9% 100 ML IV SCH (18:09)
[2016-12-05 19:37] LABS: INR 1.05 (0.87-1.13); PROTHROMBIN TIME 11.4 SECS (9.5-12.7)
[2016-12-06] VITALS (78 sets, daily range): BP systolic 88–152; BP diastolic 41–86
[2016-12-06] MEDS: VANCOMYCIN 1 GM in IV D5W 250 ML IV SCH ×2
[2016-12-06] MEDS ORDERED: IV SET PRIMARY PUMP SET 1 EA INFUS.SET MC ONE ×3 (03:54→17:10)
[2016-12-06] MEDS ORDERED: FILTER SET SAVER IV SET 1 EA INFUS.SET MC ONE (03:54)
[2016-12-06 04:39] LABS: BASOPHILS # (AUTO) 0.1 /CMM (0.0-0.2); BASOPHILS % (AUTO) 0.4 % (0.0-2.0); DIFF TOTAL % 100 %; EOSINOPHILS # (AUTO) 0.3 /CMM (0.0-0.7); HEMATOCRIT 29 % (33-45); HEMOGLOBIN 9.5 g/dL (11.5-14.8); LYMPHOCYTES # (AUTO) 0.7 /CMM (0.8-4.8); LYMPHOCYTES % (AUTO) 4.5 % (20.0-44.0); MEAN CORPUSCULAR HEMOGLOBIN 30 PG (26.0-33.0); MEAN CORPUSCULAR HGB CONC 33 g/dl (31.0-36.0); MEAN CORPUSCULAR VOLUME 91 fL (82-100); MONOCYTES # (AUTO) 0.9 /CMM (0.1-1.30); MONOCYTES % (AUTO) 5.7 % (2.0-12.0); NEUTROPHILS # (AUTO) 13.6 /CMM (1.8-8.9); NEUTROPHILS % (AUTO) 87.4 % (43.0-81.0); PLATELET COUNT (AUTO) 228 /CMM (150-450); RED BLOOD CELL COUNT(AUTO) 3.16 MIL/uL (4.0-5.2); WHITE BLOOD COUNT (AUTO) 15.6 K/uL (4.3-11.0)
[2016-12-06] MEDS: MEROPENEM 1 G in IV NS 0.9% 100 ML IV SCH ×2 (04:42→17:16)
[2016-12-06] MEDS: BLOOD SUGAR DIAGNOSTIC 1 EACH STRIP IN SCH ×3 (05:30→17:16)
[2016-12-06 05:40] LABS: CALCIUM, SERUM 8.3 mg/dL (8.5-10.1); PHOSPHORUS 2.8 mg/dL (2.5-4.9); POTASSIUM 3.8 mmol/L (3.5-5.1)
[2016-12-06] MEDS: PROPOFOL 100 ML IV PRN ×2 (06:16→17:10)
[2016-12-06] MEDS: NYSTATIN (PYXIS) 500,000 UNIT/5 ML ORAL.SUSP PO SCH ×3 (08:30→17:16)
[2016-12-06] MEDS: CYANOCOBALAMIN 1,000 MCG/ML VIAL IM SCH (08:30)
[2016-12-06] MEDS: PANTOPRAZOLE 40 MG VIAL IV SCH (08:30)
[2016-12-06] MEDS: ENOXAPARIN SODIUM 30 MG/0.3 ML DISP.SYRIN SQ SCH (08:31)
[2016-12-06 11:44] LABS: ABG BASE EXCESS -0.9 mmol/L; ABG HCO3 23.2 mmol/L; ABG PCO2 36.5 mmHg (35.0-45.0); ABG PH 7.421 (7.350-7.450); ABG PO2 141.9 mmHg (75.0-100.0); ALLEN TEST Pass; AaDO2 101.3 mmHg; O2Hb 96.7 % (94.0-97.0)
[2016-12-06] MEDS: NOREPINEPHRINE 16 MG in IV D5W 500 ML IV PRN (12:28)
[2016-12-06] MEDS ORDERED: TPN BAG #19 IV PRN ×16 (15:04→15:09)
[2016-12-06] MEDS ORDERED: TPN BAG #20 IV PRN ×6 (15:30)
[2016-12-06] MEDS: MICAFUNGIN SODIUM 100 MG in IV NS 0.9% 100 ML IV SCH (18:19)
[2016-12-07] VITALS (64 sets, daily range): BP systolic 87–177; BP diastolic 39–102
[2016-12-07] MEDS: BLOOD SUGAR DIAGNOSTIC 1 EACH STRIP IN SCH ×5 (00:22→23:42)
[2016-12-07] MEDS: VANCOMYCIN 1 GM in IV D5W 250 ML IV SCH ×3 (00:23→19:11)
[2016-12-07] MEDS ORDERED: IV NS 0.9% 250 ML IV ONE (03:55)
[2016-12-07] MEDS ORDERED: IV SET PRIMARY PUMP SET 1 EA INFUS.SET MC ONE ×6 (03:55→22:01)
[2016-12-07] MEDS: PROPOFOL 100 ML IV PRN ×2 (03:59→18:32)
[2016-12-07] MEDS ORDERED: IV NS 0.9% 250 ML BAG IV PRN (04:00)
[2016-12-07] MEDS: MEROPENEM 1 G in IV NS 0.9% 100 ML IV SCH ×2 (04:00→16:06)
[2016-12-07] MEDS: IV NS 0.9% 250 ML BAG IV PRN ×2 (04:11→19:18)
[2016-12-07 04:42] LABS: BASOPHILS # (AUTO) 0.1 /CMM (0.0-0.2); BASOPHILS % (AUTO) 0.7 % (0.0-2.0); DIFF TOTAL % 100 %; EOSINOPHILS # (AUTO) 0.3 /CMM (0.0-0.7); EOSINOPHILS % (AUTO) 3.8 % (0.0-6.0); HEMATOCRIT 26 % (33-45); HEMOGLOBIN 8.7 g/dL (11.5-14.8); LYMPHOCYTES # (AUTO) 0.6 /CMM (0.8-4.8); LYMPHOCYTES % (AUTO) 6.9 % (20.0-44.0); MEAN CORPUSCULAR HEMOGLOBIN 30 PG (26.0-33.0); MEAN CORPUSCULAR HGB CONC 33 g/dl (31.0-36.0); MEAN CORPUSCULAR VOLUME 91 fL (82-100); MONOCYTES # (AUTO) 0.7 /CMM (0.1-1.30); MONOCYTES % (AUTO) 8.8 % (2.0-12.0); NEUTROPHILS # (AUTO) 6.6 /CMM (1.8-8.9); NEUTROPHILS % (AUTO) 79.8 % (43.0-81.0); PLATELET COUNT (AUTO) 204 /CMM (150-450); RED BLOOD CELL COUNT(AUTO) 2.87 MIL/uL (4.0-5.2); WHITE BLOOD COUNT (AUTO) 8.2 K/uL (4.3-11.0)
[2016-12-07 05:08] LABS: CALCIUM, SERUM 7.9 mg/dL (8.5-10.1); CREATININE 0.9 mg/dL (0.6-1.3); PHOSPHORUS 2.8 mg/dL (2.5-4.9)
[2016-12-07] MEDS ORDERED: FILTER SET SAVER IV SET 1 EA INFUS.SET MC ONE ×2 (07:53→22:01)
[2016-12-07] MEDS ORDERED: DC PROPOFOL WHEN EXTUBATED XX PRN ×2 (08:00→12:30)
[2016-12-07] MEDS: ENOXAPARIN SODIUM 30 MG/0.3 ML DISP.SYRIN SQ SCH (08:06)
[2016-12-07] MEDS: PANTOPRAZOLE 40 MG VIAL IV SCH (08:06)
[2016-12-07] MEDS: NYSTATIN (PYXIS) 500,000 UNIT/5 ML ORAL.SUSP PO SCH ×3 (08:07→17:00)
[2016-12-07] MEDS: CYANOCOBALAMIN 1,000 MCG/ML VIAL IM SCH (08:07)
[2016-12-07 11:36] LABS: ABG BASE EXCESS 0.1 mmol/L; ABG PCO2 36.1 mmHg (35.0-45.0); ABG PO2 105.7 mmHg (75.0-100.0); ABG TOTAL HEMOGLOBIN 10.4 G/dL (12.0-16.0); ALLEN TEST Pass; O2Hb 95.7 % (94.0-97.0)
[2016-12-07] MEDS ORDERED: TPN BAG #21 IV PRN ×7 (12:00)
[2016-12-07] MEDS ORDERED: FAT EMULSION 20% 500 ML in PREMIX 1 EA IV SCH (14:00)
[2016-12-07] MEDS ORDERED: IPRATROPIUM NEB FS 0.5 MG/2.5 ML AMPUL.NEB ONE (16:03)
[2016-12-07] MEDS: IPRATROPIUM NEB FS 0.5 MG/2.5 ML AMPUL.NEB NEB SCH ×3 (16:07→23:11)
[2016-12-07] MEDS ORDERED: HYDROMORPHONE 1 MG/1 ML DISP.SYRIN IV PRN (17:00)
[2016-12-07] MEDS ORDERED: SECONDARY IV SET 1 EA INFUS.SET MC ONE ×2 (17:04→18:13)
[2016-12-07] MEDS: MICAFUNGIN SODIUM 100 MG in IV NS 0.9% 100 ML IV SCH (17:18)
[2016-12-07] MEDS ORDERED: PROPOFOL 100 ML IV PRN (18:00)
[2016-12-07] MEDS: INSULIN REGULAR, HUMAN 100 UNIT/ML 3 ML VIAL SQ PRN (18:19)
[2016-12-07] MEDS ORDERED: SUCCINYLCHOLINE CHLORIDE 20 MG/ML VIAL IV ONE (18:47)
[2016-12-07] MEDS ORDERED: ETOMIDATE 2 MG/ML VIAL IV ONE (18:47)
[2016-12-07 19:33] LABS: ABG BASE EXCESS -4.3 mmol/L; ABG HCO3 22.4 mmol/L; ABG PCO2 48.3 mmHg (35.0-45.0); ABG PH 7.285 (7.350-7.450); ABG PO2 88.2 mmHg (75.0-100.0); ABG TOTAL HEMOGLOBIN 11.5 G/dL (12.0-16.0); ALLEN TEST Pass; O2Hb 93.1 % (94.0-97.0)
[2016-12-07] MEDS: ACETYLCYSTEINE 10% SOLN 400 MG/4 ML VIAL NEB SCH (23:11)
[2016-12-07] MEDS: ALBUTEROL FS 2.5 MG/3 ML VIAL.NEB NEB PRN (23:11)
[2016-12-08] VITALS (76 sets, daily range): BP systolic 85–128; BP diastolic 38–72
[2016-12-08] MEDS: IPRATROPIUM NEB FS 0.5 MG/2.5 ML AMPUL.NEB NEB SCH ×6 (03:24→23:19)
[2016-12-08] MEDS ORDERED: IV SET PRIMARY PUMP SET 1 EA INFUS.SET MC ONE ×4 (04:52→15:21)
[2016-12-08 04:54] LABS: BASOPHILS % (AUTO) 0.4 % (0.0-2.0); DIFF TOTAL % 100 %; HEMATOCRIT 26 % (33-45); HEMOGLOBIN 8.6 g/dL (11.5-14.8); LYMPHOCYTES # (AUTO) 0.6 /CMM (0.8-4.8); LYMPHOCYTES % (AUTO) 5.9 % (20.0-44.0); MEAN CORPUSCULAR HEMOGLOBIN 31 PG (26.0-33.0); MEAN CORPUSCULAR HGB CONC 34 g/dl (31.0-36.0); MEAN CORPUSCULAR VOLUME 91 fL (82-100); MONOCYTES # (AUTO) 0.7 /CMM (0.1-1.30); MONOCYTES % (AUTO) 7.5 % (2.0-12.0); NEUTROPHILS # (AUTO) 8.6 /CMM (1.8-8.9); NEUTROPHILS % (AUTO) 86.2 % (43.0-81.0); PLATELET COUNT (AUTO) 202 /CMM (150-450); RED BLOOD CELL COUNT(AUTO) 2.81 MIL/uL (4.0-5.2); WHITE BLOOD COUNT (AUTO) 9.9 K/uL (4.3-11.0)
[2016-12-08] MEDS: MEROPENEM 1 G in IV NS 0.9% 100 ML IV SCH ×2 (04:57→17:48)
[2016-12-08] MEDS: PROPOFOL 100 ML IV PRN ×2 (04:57→15:23)
[2016-12-08 05:06] LABS: CALCIUM, SERUM 8.2 mg/dL (8.5-10.1); PHOSPHORUS 3.1 mg/dL (2.5-4.9); POTASSIUM 4.7 mmol/L (3.5-5.1)
[2016-12-08 05:16] LABS: INR 1.09 (0.87-1.13); PROTHROMBIN TIME 11.8 SECS (9.5-12.7)
[2016-12-08] MEDS: BLOOD SUGAR DIAGNOSTIC 1 EACH STRIP IN SCH ×4 (05:31→23:34)
[2016-12-08] MEDS ORDERED: TPN ADDITIVES IV PRN (07:30)
[2016-12-08] MEDS ORDERED: TPN BAG #23 IV PRN ×6 (07:30)
[2016-12-08] MEDS ORDERED: POTASSIUM PHOSPHATE IV PRN (07:30)
[2016-12-08] MEDS ORDERED: [UNRECOGNIZED DRUG - OTHER] IV PRN (07:30)
[2016-12-08] MEDS ORDERED: POTASSIUM ACETATE IV PRN (07:30)
[2016-12-08] MEDS: ACETYLCYSTEINE 10% SOLN 400 MG/4 ML VIAL NEB SCH ×3 (08:09→23:19)
[2016-12-08] MEDS ORDERED: HYDROGEL DRESSING 90 GM TUBE TP PRN (08:30)
[2016-12-08] MEDS: CYANOCOBALAMIN 1,000 MCG/ML VIAL IM SCH (08:47)
[2016-12-08] MEDS: NYSTATIN (PYXIS) 500,000 UNIT/5 ML ORAL.SUSP PO SCH ×3 (08:47→17:48)
[2016-12-08] MEDS: PANTOPRAZOLE 40 MG VIAL IV SCH (08:47)
[2016-12-08] MEDS: ENOXAPARIN SODIUM 30 MG/0.3 ML DISP.SYRIN SQ SCH (08:48)
[2016-12-08] MEDS ORDERED: BUMETANIDE INJ 8 MG in IV NS 0.9% 48 ML IV ONE (09:00)
[2016-12-08] MEDS ORDERED: FILTER SET SAVER IV SET 1 EA INFUS.SET MC ONE (11:59)
[2016-12-08] MEDS: TPN BAG #22 IV PRN ×5 (12:08)
[2016-12-08] MEDS: HYDROGEL DRESSING 90 GM TUBE TP SCH (12:18)
[2016-12-08] MEDS: VANCOMYCIN 1 GM in IV D5W 250 ML IV SCH (12:18)
[2016-12-08] MEDS: MICAFUNGIN SODIUM 100 MG in IV NS 0.9% 100 ML IV SCH (18:40)
[2016-12-08] MEDS ORDERED: IV NS 0.9% 250 ML IV ONE (22:30)
[2016-12-08] MEDS: IV NS 0.9% 250 ML BAG IV PRN (23:20)
[2016-12-09] VITALS (58 sets, daily range): BP systolic 81–135; BP diastolic 40–96
[2016-12-09] MEDS ORDERED: FILTER SET SAVER IV SET 1 EA INFUS.SET MC ONE ×2 (00:25→14:55)
[2016-12-09] MEDS ORDERED: IV SET PRIMARY PUMP SET 1 EA INFUS.SET MC ONE ×8 (00:25→20:11)
[2016-12-09] MEDS: TPN BAG #22 IV PRN ×5 (01:02)
[2016-12-09] MEDS ORDERED: NOREPINEPHRINE 4 MG/4 ML AMPUL IV ONE (01:38)
[2016-12-09] MEDS: NOREPINEPHRINE 16 MG in IV D5W 500 ML IV PRN ×2 (01:48→10:26)
[2016-12-09] MEDS: IPRATROPIUM NEB FS 0.5 MG/2.5 ML AMPUL.NEB NEB SCH ×6 (03:38→23:49)
[2016-12-09 04:42] LABS: BASOPHILS # (AUTO) 0.1 /CMM (0.0-0.2); BASOPHILS % (AUTO) 0.9 % (0.0-2.0); DIFF TOTAL % 100 %; EOSINOPHILS # (AUTO) 0.7 /CMM (0.0-0.7); EOSINOPHILS % (AUTO) 5.9 % (0.0-6.0); HEMATOCRIT 28 % (33-45); HEMOGLOBIN 9.7 g/dL (11.5-14.8); LYMPHOCYTES # (AUTO) 0.6 /CMM (0.8-4.8); LYMPHOCYTES % (AUTO) 4.9 % (20.0-44.0); MEAN CORPUSCULAR HEMOGLOBIN 31 PG (26.0-33.0); MEAN CORPUSCULAR HGB CONC 34 g/dl (31.0-36.0); MEAN CORPUSCULAR VOLUME 90 fL (82-100); MONOCYTES # (AUTO) 0.7 /CMM (0.1-1.30); MONOCYTES % (AUTO) 6.2 % (2.0-12.0); NEUTROPHILS # (AUTO) 9.8 /CMM (1.8-8.9); NEUTROPHILS % (AUTO) 82.1 % (43.0-81.0); PLATELET COUNT (AUTO) 263 /CMM (150-450); RED BLOOD CELL COUNT(AUTO) 3.16 MIL/uL (4.0-5.2); WHITE BLOOD COUNT (AUTO) 11.9 K/uL (4.3-11.0)
[2016-12-09 04:49] LABS: CALCIUM, SERUM 8.2 mg/dL (8.5-10.1); CREATININE 1.2 mg/dL (0.6-1.3); PHOSPHORUS 4.1 mg/dL (2.5-4.9); POTASSIUM 4.2 mmol/L (3.5-5.1)
[2016-12-09] MEDS: MEROPENEM 1 G in IV NS 0.9% 100 ML IV SCH ×2 (05:29→17:40)
[2016-12-09] MEDS: BLOOD SUGAR DIAGNOSTIC 1 EACH STRIP IN SCH ×4 (05:39→23:45)
[2016-12-09] MEDS: VANCOMYCIN 1 GM in IV D5W 250 ML IV SCH (06:59)
[2016-12-09] MEDS: ACETYLCYSTEINE 10% SOLN 400 MG/4 ML VIAL NEB SCH ×3 (07:41→23:49)
[2016-12-09] MEDS ORDERED: BUMETANIDE INJ 8 MG in IV NS 0.9% 48 ML IV ONE (08:00)
[2016-12-09] MEDS ORDERED: TPN BAG #24 IV PRN ×5 (09:33)
[2016-12-09] MEDS: ENOXAPARIN SODIUM 30 MG/0.3 ML DISP.SYRIN SQ SCH (09:35)
[2016-12-09] MEDS: HYDROGEL DRESSING 90 GM TUBE TP SCH (09:35)
[2016-12-09] MEDS: CYANOCOBALAMIN 1,000 MCG/ML VIAL IM SCH (09:36)
[2016-12-09] MEDS: PANTOPRAZOLE 40 MG VIAL IV SCH (09:36)
[2016-12-09] MEDS: NYSTATIN (PYXIS) 500,000 UNIT/5 ML ORAL.SUSP PO SCH ×3 (09:36→17:40)
[2016-12-09] MEDS ORDERED: TPN BAG #25 IV PRN ×7 (10:00)
[2016-12-09 10:07] LABS: ABG BASE EXCESS 0.9 mmol/L; ABG HCO3 25.4 mmol/L; ABG PCO2 39.9 mmHg (35.0-45.0); ABG PH 7.421 (7.350-7.450); ABG PO2 108.3 mmHg (75.0-100.0); ABG TOTAL HEMOGLOBIN 9.7 G/dL (12.0-16.0); O2Hb 96.2 % (94.0-97.0)
[2016-12-09] MEDS: MICAFUNGIN SODIUM 100 MG in IV NS 0.9% 100 ML IV SCH (17:40)
[2016-12-09] MEDS: PROPOFOL 100 ML IV PRN (20:11)
[2016-12-10] VITALS (56 sets, daily range): BP systolic 86–149; BP diastolic 47–103
[2016-12-10] MEDS: IPRATROPIUM NEB FS 0.5 MG/2.5 ML AMPUL.NEB NEB SCH ×5 (03:15→20:13)
[2016-12-10] MEDS ORDERED: IV NS 0.9% 500 ML IV ONE (04:19)
[2016-12-10] MEDS: MEROPENEM 1 G in IV NS 0.9% 100 ML IV SCH ×2 (04:45→17:28)
[2016-12-10] MEDS: IV NS 0.9% 250 ML BAG IV PRN (04:47)
[2016-12-10 05:17] LABS: BASOPHILS # (AUTO) 0.1 /CMM (0.0-0.2); DIFF TOTAL % 100 %; EOSINOPHILS # (AUTO) 0.6 /CMM (0.0-0.7); EOSINOPHILS % (AUTO) 6.9 % (0.0-6.0); HEMATOCRIT 30 % (33-45); HEMOGLOBIN 10.1 g/dL (11.5-14.8); LYMPHOCYTES # (AUTO) 0.7 /CMM (0.8-4.8); LYMPHOCYTES % (AUTO) 7.6 % (20.0-44.0); MEAN CORPUSCULAR HEMOGLOBIN 30 PG (26.0-33.0); MEAN CORPUSCULAR HGB CONC 34 g/dl (31.0-36.0); MEAN CORPUSCULAR VOLUME 90 fL (82-100); MONOCYTES # (AUTO) 0.8 /CMM (0.1-1.30); MONOCYTES % (AUTO) 8.7 % (2.0-12.0); NEUTROPHILS # (AUTO) 6.7 /CMM (1.8-8.9); NEUTROPHILS % (AUTO) 75.8 % (43.0-81.0); PLATELET COUNT (AUTO) 288 /CMM (150-450); RED BLOOD CELL COUNT(AUTO) 3.36 MIL/uL (4.0-5.2); WHITE BLOOD COUNT (AUTO) 8.9 K/uL (4.3-11.0)
[2016-12-10] MEDS: BLOOD SUGAR DIAGNOSTIC 1 EACH STRIP IN SCH ×3 (05:28→17:28)
[2016-12-10 05:30] LABS: CALCIUM, SERUM 8.4 mg/dL (8.5-10.1); CREATININE 1.2 mg/dL (0.6-1.3); PHOSPHORUS 3.7 mg/dL (2.5-4.9); POTASSIUM 3.4 mmol/L (3.5-5.1)
[2016-12-10] MEDS ORDERED: VANCOMYCIN 0.75 GM in IV D5W 250 ML IV SCH (08:00)
[2016-12-10] MEDS: PROPOFOL 100 ML IV PRN ×2 (08:34→18:23)
[2016-12-10] MEDS: ACETYLCYSTEINE 10% SOLN 400 MG/4 ML VIAL NEB SCH ×2 (09:05→14:37)
[2016-12-10] MEDS: NYSTATIN (PYXIS) 500,000 UNIT/5 ML ORAL.SUSP PO SCH ×3 (09:53→17:28)
[2016-12-10] MEDS: PANTOPRAZOLE 40 MG VIAL IV SCH (09:53)
[2016-12-10] MEDS: CYANOCOBALAMIN 1,000 MCG/ML VIAL IM SCH (09:53)
[2016-12-10] MEDS: ENOXAPARIN SODIUM 30 MG/0.3 ML DISP.SYRIN SQ SCH (09:54)
[2016-12-10] MEDS: HYDROGEL DRESSING 90 GM TUBE TP SCH (09:55)
[2016-12-10] MEDS ORDERED: FIBERSOURCE HN 1,000 ML BOTTLE GT PRN (13:00)
[2016-12-10] MEDS: MICAFUNGIN SODIUM 100 MG in IV NS 0.9% 100 ML IV SCH (17:28)
[2016-12-10] MEDS ORDERED: TPN BAG #26 IV PRN ×7 (18:00)
[2016-12-10] MEDS ORDERED: IV SET PRIMARY PUMP SET 1 EA INFUS.SET MC ONE (18:08)
[2016-12-10] MEDS ORDERED: FILTER SET SAVER IV SET 1 EA INFUS.SET MC ONE (18:09)
[2016-12-10] MEDS: NOREPINEPHRINE 16 MG in IV D5W 500 ML IV PRN (18:24)
[2016-12-11] VITALS (90 sets, daily range): BP systolic 84–138; BP diastolic 40–96
[2016-12-11] MEDS: ACETYLCYSTEINE 10% SOLN 400 MG/4 ML VIAL NEB SCH ×2 (00:01→07:36)
[2016-12-11] MEDS: IPRATROPIUM NEB FS 0.5 MG/2.5 ML AMPUL.NEB NEB SCH ×5 (00:01→20:18)
[2016-12-11] MEDS: BLOOD SUGAR DIAGNOSTIC 1 EACH STRIP IN SCH ×5 (00:25→23:28)
[2016-12-11] MEDS: INSULIN REGULAR, HUMAN 100 UNIT/ML 3 ML VIAL SQ PRN (00:29)
[2016-12-11] MEDS ORDERED: IV SET PRIMARY PUMP SET 1 EA INFUS.SET MC ONE ×3 (03:11→18:09)
[2016-12-11] MEDS: PROPOFOL 100 ML IV PRN ×2 (04:12→15:30)
[2016-12-11] MEDS: MEROPENEM 1 G in IV NS 0.9% 100 ML IV SCH ×2 (04:12→16:06)
[2016-12-11 04:45] LABS: BASOPHILS # (AUTO) 0.1 /CMM (0.0-0.2); BASOPHILS % (AUTO) 0.8 % (0.0-2.0); DIFF TOTAL % 100 %; EOSINOPHILS # (AUTO) 0.6 /CMM (0.0-0.7); EOSINOPHILS % (AUTO) 5.8 % (0.0-6.0); HEMATOCRIT 31 % (33-45); LYMPHOCYTES # (AUTO) 0.9 /CMM (0.8-4.8); LYMPHOCYTES % (AUTO) 8.8 % (20.0-44.0); MEAN CORPUSCULAR HEMOGLOBIN 29 PG (26.0-33.0); MEAN CORPUSCULAR HGB CONC 33 g/dl (31.0-36.0); MEAN CORPUSCULAR VOLUME 91 fL (82-100); MONOCYTES # (AUTO) 0.9 /CMM (0.1-1.30); MONOCYTES % (AUTO) 9.1 % (2.0-12.0); NEUTROPHILS # (AUTO) 7.3 /CMM (1.8-8.9); NEUTROPHILS % (AUTO) 75.5 % (43.0-81.0); PLATELET COUNT (AUTO) 307 /CMM (150-450); RED BLOOD CELL COUNT(AUTO) 3.39 MIL/uL (4.0-5.2); WHITE BLOOD COUNT (AUTO) 9.7 K/uL (4.3-11.0)
[2016-12-11 04:57] LABS: CALCIUM, SERUM 8.4 mg/dL (8.5-10.1); CREATININE 1.1 mg/dL (0.6-1.3); PHOSPHORUS 3.6 mg/dL (2.5-4.9); POTASSIUM 3.8 mmol/L (3.5-5.1)
[2016-12-11] MEDS ORDERED: IV NS 0.9% 500 ML IV ONE (05:32)
[2016-12-11] MEDS: IV NS 0.9% 250 ML BAG IV PRN ×2 (05:38→14:00)
[2016-12-11] MEDS ORDERED: TPN BAG #27 IV PRN ×9 (07:00)
[2016-12-11] MEDS: ALBUTEROL FS 2.5 MG/3 ML VIAL.NEB NEB PRN (07:36)
[2016-12-11] MEDS ORDERED: VANCOMYCIN 0.75 GM in IV D5W 250 ML IV SCH (08:00)
[2016-12-11] MEDS ORDERED: IV NS 0.9% 1,000 ML IV PRN (08:16)
[2016-12-11] MEDS ORDERED: FIBERSOURCE HN 1,000 ML BOTTLE GT PRN (08:29)
[2016-12-11] MEDS: NYSTATIN (PYXIS) 500,000 UNIT/5 ML ORAL.SUSP PO SCH ×3 (08:35→17:03)
[2016-12-11] MEDS: CYANOCOBALAMIN 1,000 MCG/ML VIAL IM SCH (08:35)
[2016-12-11] MEDS: ENOXAPARIN SODIUM 30 MG/0.3 ML DISP.SYRIN SQ SCH (08:36)
[2016-12-11] MEDS: PANTOPRAZOLE 40 MG VIAL IV SCH (08:36)
[2016-12-11] MEDS: HYDROGEL DRESSING 90 GM TUBE TP SCH (08:37)
[2016-12-11] MEDS: NOREPINEPHRINE 16 MG in IV D5W 500 ML IV PRN (15:06)
[2016-12-11] MEDS ORDERED: SECONDARY IV SET 1 EA INFUS.SET MC ONE (16:00)
[2016-12-11] MEDS: MICAFUNGIN SODIUM 100 MG in IV NS 0.9% 100 ML IV SCH (17:03)
[2016-12-11] MEDS ORDERED: FILTER SET SAVER IV SET 1 EA INFUS.SET MC ONE (18:09)
[2016-12-11] MEDS: VANCOMYCIN 0.75 GM in IV D5W 250 ML IV SCH (18:32)
[2016-12-12] VITALS (88 sets, daily range): BP systolic 84–141; BP diastolic 41–79
[2016-12-12] MEDS: IPRATROPIUM NEB FS 0.5 MG/2.5 ML AMPUL.NEB NEB SCH ×7 (00:16→23:45)
[2016-12-12] MEDS: ACETYLCYSTEINE 10% SOLN 400 MG/4 ML VIAL NEB SCH ×4 (00:17→23:46)
[2016-12-12] MEDS ORDERED: IV SET PRIMARY PUMP SET 1 EA INFUS.SET MC ONE ×4 (00:30→18:51)
[2016-12-12] MEDS: PROPOFOL 100 ML IV PRN ×2 (00:33→13:38)
[2016-12-12 04:48] LABS: BASOPHILS # (AUTO) 0.1 /CMM (0.0-0.2); BASOPHILS % (AUTO) 0.6 % (0.0-2.0); DIFF TOTAL % 100 %; EOSINOPHILS # (AUTO) 0.6 /CMM (0.0-0.7); EOSINOPHILS % (AUTO) 6.6 % (0.0-6.0); HEMATOCRIT 28 % (33-45); HEMOGLOBIN 9.6 g/dL (11.5-14.8); LYMPHOCYTES # (AUTO) 0.7 /CMM (0.8-4.8); LYMPHOCYTES % (AUTO) 7.5 % (20.0-44.0); MEAN CORPUSCULAR HEMOGLOBIN 31 PG (26.0-33.0); MEAN CORPUSCULAR HGB CONC 34 g/dl (31.0-36.0); MEAN CORPUSCULAR VOLUME 90 fL (82-100); NEUTROPHILS # (AUTO) 7.3 /CMM (1.8-8.9); NEUTROPHILS % (AUTO) 75.3 % (43.0-81.0); PLATELET COUNT (AUTO) 271 /CMM (150-450); RED BLOOD CELL COUNT(AUTO) 3.09 MIL/uL (4.0-5.2); WHITE BLOOD COUNT (AUTO) 9.7 K/uL (4.3-11.0)
[2016-12-12 05:07] LABS: CALCIUM, SERUM 8.2 mg/dL (8.5-10.1); PHOSPHORUS 3.6 mg/dL (2.5-4.9); POTASSIUM 3.8 mmol/L (3.5-5.1)
[2016-12-12] MEDS ORDERED: IV NS 0.9% 500 ML IV ONE (05:25)
[2016-12-12] MEDS ORDERED: IV NS 0.9% 250 ML IV ONE (05:25)
[2016-12-12] MEDS: MEROPENEM 1 G in IV NS 0.9% 100 ML IV SCH ×2 (05:43→16:17)
[2016-12-12] MEDS: BLOOD SUGAR DIAGNOSTIC 1 EACH STRIP IN SCH ×4 (05:43→23:47)
[2016-12-12] MEDS ORDERED: SECONDARY IV SET 1 EA INFUS.SET MC ONE (05:44)
[2016-12-12] MEDS: PANTOPRAZOLE 40 MG VIAL IV SCH (08:03)
[2016-12-12] MEDS: NYSTATIN (PYXIS) 500,000 UNIT/5 ML ORAL.SUSP PO SCH ×3 (08:03→16:17)
[2016-12-12] MEDS: CYANOCOBALAMIN 1,000 MCG/ML VIAL IM SCH (08:03)
[2016-12-12] MEDS: ENOXAPARIN SODIUM 30 MG/0.3 ML DISP.SYRIN SQ SCH (08:04)
[2016-12-12] MEDS: HYDROGEL DRESSING 90 GM TUBE TP SCH (08:05)
[2016-12-12] MEDS ORDERED: TPN BAG #28 IV PRN ×7 (14:30)
[2016-12-12] MEDS: FIBERSOURCE HN 1,000 ML BOTTLE GT PRN (15:13)
[2016-12-12] MEDS: MICAFUNGIN SODIUM 100 MG in IV NS 0.9% 100 ML IV SCH (17:46)
[2016-12-12] MEDS: VANCOMYCIN 0.75 GM in IV D5W 250 ML IV SCH (18:00)
[2016-12-13] VITALS (47 sets, daily range): BP systolic 71–130; BP diastolic 38–67
[2016-12-13] MEDS ORDERED: IV SET PRIMARY PUMP SET 1 EA INFUS.SET MC ONE ×3 (01:48→18:24)
[2016-12-13] MEDS: PROPOFOL 100 ML IV PRN ×2 (01:59→16:10)
[2016-12-13] MEDS: IV NS 0.9% 250 ML BAG IV PRN (03:44)
[2016-12-13] MEDS: IPRATROPIUM NEB FS 0.5 MG/2.5 ML AMPUL.NEB NEB SCH ×6 (03:50→23:40)
[2016-12-13 04:34] LABS: BASOPHILS # (AUTO) 0.1 /CMM (0.0-0.2); BASOPHILS % (AUTO) 0.8 % (0.0-2.0); DIFF TOTAL % 100 %; EOSINOPHILS # (AUTO) 0.7 /CMM (0.0-0.7); HEMATOCRIT 25 % (33-45); HEMOGLOBIN 8.2 g/dL (11.5-14.8); LYMPHOCYTES # (AUTO) 0.8 /CMM (0.8-4.8); LYMPHOCYTES % (AUTO) 8.7 % (20.0-44.0); MEAN CORPUSCULAR HEMOGLOBIN 30 PG (26.0-33.0); MEAN CORPUSCULAR HGB CONC 33 g/dl (31.0-36.0); MEAN CORPUSCULAR VOLUME 91 fL (82-100); MONOCYTES # (AUTO) 0.9 /CMM (0.1-1.30); MONOCYTES % (AUTO) 9.3 % (2.0-12.0); NEUTROPHILS # (AUTO) 6.8 /CMM (1.8-8.9); NEUTROPHILS % (AUTO) 73.2 % (43.0-81.0); PLATELET COUNT (AUTO) 241 /CMM (150-450); RED BLOOD CELL COUNT(AUTO) 2.73 MIL/uL (4.0-5.2); WHITE BLOOD COUNT (AUTO) 9.3 K/uL (4.3-11.0)
[2016-12-13] MEDS: MEROPENEM 1 G in IV NS 0.9% 100 ML IV SCH ×2 (04:44→16:11)
[2016-12-13 04:45] LABS: CALCIUM, SERUM 8.5 mg/dL (8.5-10.1); CREATININE 1.1 mg/dL (0.6-1.3); PHOSPHORUS 3.5 mg/dL (2.5-4.9); POTASSIUM 4.3 mmol/L (3.5-5.1)
[2016-12-13] MEDS: BLOOD SUGAR DIAGNOSTIC 1 EACH STRIP IN SCH ×4 (05:50→23:39)
[2016-12-13] MEDS ORDERED: VANCOMYCIN 0.75 GM in IV D5W 250 ML IV SCH (06:00)
[2016-12-13] MEDS: ACETYLCYSTEINE 10% SOLN 400 MG/4 ML VIAL NEB SCH ×3 (08:29→23:40)
[2016-12-13] MEDS: CYANOCOBALAMIN 1,000 MCG/ML VIAL IM SCH (08:43)
[2016-12-13] MEDS: NYSTATIN (PYXIS) 500,000 UNIT/5 ML ORAL.SUSP PO SCH ×3 (08:44→16:10)
[2016-12-13] MEDS: ENOXAPARIN SODIUM 30 MG/0.3 ML DISP.SYRIN SQ SCH (08:44)
[2016-12-13] MEDS: PANTOPRAZOLE 40 MG VIAL IV SCH (08:44)
[2016-12-13] MEDS: HYDROGEL DRESSING 90 GM TUBE TP SCH (08:44)
[2016-12-13] MEDS: Z GUARD REMEDY 2 OZ OINT TP PRN (08:45)
[2016-12-13] MEDS ORDERED: TPN BAG #29 IV PRN ×8 (13:00)
[2016-12-13] MEDS: MICAFUNGIN SODIUM 100 MG in IV NS 0.9% 100 ML IV SCH (16:10)
[2016-12-13] MEDS ORDERED: SECONDARY IV SET 1 EA INFUS.SET MC ONE (17:29)
[2016-12-13] MEDS ORDERED: FILTER SET SAVER IV SET 1 EA INFUS.SET MC ONE (18:24)
[2016-12-14] VITALS (64 sets, daily range): BP systolic 81–156; BP diastolic 38–100
[2016-12-14] MEDS ORDERED: IV NS 0.9% 500 ML IV ONE (03:02)
[2016-12-14] MEDS ORDERED: IV SET PRIMARY PUMP SET 1 EA INFUS.SET MC ONE ×3 (03:02→19:53)
[2016-12-14] MEDS: PROPOFOL 100 ML IV PRN ×2 (03:10→11:54)
[2016-12-14] MEDS: IPRATROPIUM NEB FS 0.5 MG/2.5 ML AMPUL.NEB NEB SCH ×6 (03:29→23:32)
[2016-12-14] MEDS: BLOOD SUGAR DIAGNOSTIC 1 EACH STRIP IN SCH ×4 (05:13→17:08)
[2016-12-14 05:29] LABS: BASOPHILS # (AUTO) 0.1 /CMM (0.0-0.2); BASOPHILS % (AUTO) 0.7 % (0.0-2.0); DIFF TOTAL % 100 %; EOSINOPHILS # (AUTO) 0.7 /CMM (0.0-0.7); EOSINOPHILS % (AUTO) 7.3 % (0.0-6.0); HEMATOCRIT 29 % (33-45); HEMOGLOBIN 9.5 g/dL (11.5-14.8); LYMPHOCYTES # (AUTO) 0.7 /CMM (0.8-4.8); LYMPHOCYTES % (AUTO) 7.6 % (20.0-44.0); MEAN CORPUSCULAR HEMOGLOBIN 30 PG (26.0-33.0); MEAN CORPUSCULAR HGB CONC 34 g/dl (31.0-36.0); MEAN CORPUSCULAR VOLUME 91 fL (82-100); MONOCYTES # (AUTO) 0.8 /CMM (0.1-1.30); MONOCYTES % (AUTO) 8.2 % (2.0-12.0); NEUTROPHILS # (AUTO) 7.4 /CMM (1.8-8.9); NEUTROPHILS % (AUTO) 76.2 % (43.0-81.0); PLATELET COUNT (AUTO) 250 /CMM (150-450); RED BLOOD CELL COUNT(AUTO) 3.14 MIL/uL (4.0-5.2); WHITE BLOOD COUNT (AUTO) 9.7 K/uL (4.3-11.0)
[2016-12-14 05:47] LABS: CALCIUM, SERUM 8.7 mg/dL (8.5-10.1); CREATININE 1.1 mg/dL (0.6-1.3); PHOSPHORUS 3.7 mg/dL (2.5-4.9); POTASSIUM 4.4 mmol/L (3.5-5.1)
[2016-12-14 06:13] LABS: INR 0.99 (0.87-1.13); PROTHROMBIN TIME 10.7 SECS (9.5-12.7)
[2016-12-14] MEDS: ACETYLCYSTEINE 10% SOLN 400 MG/4 ML VIAL NEB SCH ×3 (07:27→23:32)
[2016-12-14] MEDS: ALBUTEROL FS 2.5 MG/3 ML VIAL.NEB NEB PRN (07:29)
[2016-12-14 08:22] LABS: ABG BASE EXCESS -0.7 mmol/L; ABG HCO3 23.4 mmol/L; ABG PO2 93.1 mmHg (75.0-100.0); ABG TOTAL HEMOGLOBIN 9.8 G/dL (12.0-16.0); ALLEN TEST Pass; AaDO2 78.5 mmHg; O2Hb 94.8 % (94.0-97.0)
[2016-12-14] MEDS: NYSTATIN (PYXIS) 500,000 UNIT/5 ML ORAL.SUSP PO SCH ×3 (08:51→16:30)
[2016-12-14] MEDS: PANTOPRAZOLE 40 MG VIAL IV SCH (08:51)
[2016-12-14] MEDS: CYANOCOBALAMIN 1,000 MCG/ML VIAL IM SCH (08:51)
[2016-12-14] MEDS: ENOXAPARIN SODIUM 30 MG/0.3 ML DISP.SYRIN SQ SCH (08:51)
[2016-12-14] MEDS: HYDROGEL DRESSING 90 GM TUBE TP SCH (08:52)
[2016-12-14] MEDS ORDERED: LIDOCAINE MPF 1%-EPI 1:200,000 30 ML VIAL IJ ONE (09:51)
[2016-12-14] MEDS ORDERED: ROCURONIUM BROMIDE 50 MG/5 ML ONE (12:22)
[2016-12-14] MEDS: FIBERSOURCE HN 1,000 ML BOTTLE GT PRN (14:58)
[2016-12-14] MEDS: MICAFUNGIN SODIUM 100 MG in IV NS 0.9% 100 ML IV SCH (16:30)
[2016-12-14] MEDS ORDERED: IV FILTER 5 MICRON 1 EA INFUS.SET MC ONE (19:52)
[2016-12-14] MEDS ORDERED: FILTER SET SAVER IV SET 1 EA INFUS.SET MC ONE (19:52)
[2016-12-14] MEDS: IV NS 0.9% 250 ML BAG IV PRN (19:58)
[2016-12-14] MEDS ORDERED: TPN BAG #30 IV PRN ×7 (20:00)
[2016-12-15] VITALS (51 sets, daily range): BP systolic 81–131; BP diastolic 37–93
[2016-12-15] MEDS: BLOOD SUGAR DIAGNOSTIC 1 EACH STRIP IN SCH ×2 (00:17→06:37)
[2016-12-15] MEDS: IPRATROPIUM NEB FS 0.5 MG/2.5 ML AMPUL.NEB NEB SCH ×6 (03:46→23:22)
[2016-12-15 05:37] LABS: CALCIUM, SERUM 8.5 mg/dL (8.5-10.1); CREATININE 1.2 mg/dL (0.6-1.3); PHOSPHORUS 4.2 mg/dL (2.5-4.9); POTASSIUM 4.7 mmol/L (3.5-5.1)
[2016-12-15] MEDS ORDERED: TPN BAG #31 IV PRN ×5 (07:30)
[2016-12-15] MEDS: ACETYLCYSTEINE 10% SOLN 400 MG/4 ML VIAL NEB SCH ×3 (07:34→23:22)
[2016-12-15] MEDS: ALBUTEROL FS 2.5 MG/3 ML VIAL.NEB NEB PRN (07:35)
[2016-12-15] MEDS ORDERED: IV NS 0.9% 500 ML IV ONE (08:01)
[2016-12-15 08:03] LABS: BASOPHILS # (AUTO) 0.1 /CMM (0.0-0.2); BASOPHILS % (AUTO) 0.5 % (0.0-2.0); EOSINOPHILS % (AUTO) 0.3 % (0.0-6.0); HEMATOCRIT 28 % (33-45); HEMOGLOBIN 9.3 g/dL (11.5-14.8); LYMPHOCYTES # (AUTO) 0.7 /CMM (0.8-4.8); LYMPHOCYTES % (AUTO) 5.9 % (20.0-44.0); MEAN CORPUSCULAR HEMOGLOBIN 30 PG (26.0-33.0); MEAN CORPUSCULAR HGB CONC 33 g/dl (31.0-36.0); MEAN CORPUSCULAR VOLUME 91 fL (82-100); MONOCYTES % (AUTO) 9.4 % (2.0-12.0); NEUTROPHILS # (AUTO) 9.3 /CMM (1.8-8.9); NEUTROPHILS % (AUTO) 83.9 % (43.0-81.0); PLATELET COUNT (AUTO) 234 /CMM (150-450); RED BLOOD CELL COUNT(AUTO) 3.08 MIL/uL (4.0-5.2); WHITE BLOOD COUNT (AUTO) 11.1 K/uL (4.3-11.0)
[2016-12-15] MEDS: CYANOCOBALAMIN 1,000 MCG/ML VIAL IM SCH (08:26)
[2016-12-15] MEDS: NYSTATIN (PYXIS) 500,000 UNIT/5 ML ORAL.SUSP PO SCH ×3 (08:27→17:09)
[2016-12-15 08:41] LABS: DIFF TOTAL % 100 %
[2016-12-15] MEDS: HYDROGEL DRESSING 90 GM TUBE TP SCH (08:46)
[2016-12-15] MEDS: ENOXAPARIN SODIUM 30 MG/0.3 ML DISP.SYRIN SQ SCH (08:47)
[2016-12-15] MEDS: FUROSEMIDE 100 MG/10 ML VIAL IV SCH ×4 (09:14→17:09)
[2016-12-15] MEDS: MORPHINE SULFATE INJ 2 MG/ML DISP.SYRIN IV PRN (15:46)
[2016-12-15] MEDS: FIBERSOURCE HN 1,000 ML BOTTLE GT PRN (22:57)
[2016-12-15] MEDS ORDERED: IV NS 0.9% 250 ML IV ONE (23:55)
[2016-12-16] VITALS (30 sets, daily range): BP systolic 92–129; BP diastolic 44–76
[2016-12-16] MEDS: MORPHINE SULFATE INJ 2 MG/ML DISP.SYRIN IV PRN ×2 (00:01→15:18)
[2016-12-16] MEDS: IPRATROPIUM NEB FS 0.5 MG/2.5 ML AMPUL.NEB NEB SCH ×6 (03:40→23:47)
[2016-12-16 04:43] LABS: DIFF TOTAL % 100 %; HEMATOCRIT 26 % (33-45); HEMOGLOBIN 8.8 g/dL (11.5-14.8); LYMPHOCYTES # (AUTO) 0.5 /CMM (0.8-4.8); LYMPHOCYTES % (AUTO) 4.6 % (20.0-44.0); MEAN CORPUSCULAR HEMOGLOBIN 30 PG (26.0-33.0); MEAN CORPUSCULAR HGB CONC 34 g/dl (31.0-36.0); MEAN CORPUSCULAR VOLUME 90 fL (82-100); NEUTROPHILS % (AUTO) 86.4 % (43.0-81.0); PLATELET COUNT (AUTO) 252 /CMM (150-450); WHITE BLOOD COUNT (AUTO) 11.6 K/uL (4.3-11.0)
[2016-12-16 04:55] LABS: CALCIUM, SERUM 8.5 mg/dL (8.5-10.1); CREATININE 1.4 mg/dL (0.6-1.3); PHOSPHORUS 4.6 mg/dL (2.5-4.9); POTASSIUM 3.9 mmol/L (3.5-5.1)
[2016-12-16] MEDS: FUROSEMIDE 100 MG/10 ML VIAL IV SCH ×3 (06:34→14:30)
[2016-12-16] MEDS ORDERED: POTASSIUM CHLORIDE 20 MEQ TAB.PRT.SR PO SCH (07:00)
[2016-12-16] MEDS: NYSTATIN (PYXIS) 500,000 UNIT/5 ML ORAL.SUSP PO SCH ×3 (08:01→16:12)
[2016-12-16] MEDS: CYANOCOBALAMIN 1,000 MCG/ML VIAL IM SCH (08:01)
[2016-12-16] MEDS: ENOXAPARIN SODIUM 30 MG/0.3 ML DISP.SYRIN SQ SCH (08:02)
[2016-12-16] MEDS: HYDROGEL DRESSING 90 GM TUBE TP SCH (08:02)
[2016-12-16] MEDS: ACETYLCYSTEINE 10% SOLN 400 MG/4 ML VIAL NEB SCH ×3 (08:02→23:47)
[2016-12-16] MEDS: POTASSIUM CHLORIDE 20 MEQ POWDER PACKET GT SCH ×2 (08:27→09:49)
[2016-12-16] MEDS: NEOMY SULF/BACITRAC ZN/POLY 15 GM TUBE TP SCH (14:08)
[2016-12-16] MEDS: FIBERSOURCE HN 1,000 ML BOTTLE GT PRN (19:50)
[2016-12-16] MEDS ORDERED: AMIODARONE 150 MG/3 ML VIAL IV ONE ×3 (22:39→22:47)
[2016-12-16] MEDS ORDERED: IV D5W 100 ML IV ONE (22:42)
[2016-12-16] MEDS ORDERED: AMIODARONE 900 MG in IV D5W 482 ML IV PRN (23:00)
[2016-12-16] MEDS ORDERED: AMIODARONE 150 MG in IV D5W 100 ML IV ONE (23:00)
[2016-12-16] MEDS ORDERED: IV D5W 500 ML IV ONE (23:04)
[2016-12-17] VITALS: BP 106/61
[2016-12-17] MEDS: IPRATROPIUM NEB FS 0.5 MG/2.5 ML AMPUL.NEB NEB SCH ×6 (03:55→23:33)
[2016-12-17 04:00] VITALS: BP 126/58
[2016-12-17 06:32] LABS: BASOPHILS % (AUTO) 0.1 % (0.0-2.0); DIFF TOTAL % 100 %; HEMATOCRIT 30 % (33-45); HEMOGLOBIN 9.7 g/dL (11.5-14.8); LYMPHOCYTES # (AUTO) 0.7 /CMM (0.8-4.8); LYMPHOCYTES % (AUTO) 4.8 % (20.0-44.0); MEAN CORPUSCULAR HEMOGLOBIN 29 PG (26.0-33.0); MEAN CORPUSCULAR HGB CONC 33 g/dl (31.0-36.0); MEAN CORPUSCULAR VOLUME 90 fL (82-100); MONOCYTES % (AUTO) 7.3 % (2.0-12.0); NEUTROPHILS # (AUTO) 12.2 /CMM (1.8-8.9); NEUTROPHILS % (AUTO) 87.8 % (43.0-81.0); PLATELET COUNT (AUTO) 273 /CMM (150-450); WHITE BLOOD COUNT (AUTO) 13.9 K/uL (4.3-11.0)
[2016-12-17 06:45] LABS: CALCIUM, SERUM 8.8 mg/dL (8.5-10.1); CREATININE 1.3 mg/dL (0.6-1.3); POTASSIUM 4.5 mmol/L (3.5-5.1)
[2016-12-17 08:00] VITALS: BP_SYST 122; BP_SYST 123; BP_DIAS 55; BP_DIAS 64
[2016-12-17] MEDS ORDERED: ZOLPIDEM TARTRATE 5 MG TABLET PO ONE (08:03)
[2016-12-17] MEDS: ALBUTEROL FS 2.5 MG/3 ML VIAL.NEB NEB PRN ×3 (08:19→23:33)
[2016-12-17] MEDS: ACETYLCYSTEINE 10% SOLN 400 MG/4 ML VIAL NEB SCH ×3 (08:19→23:33)
[2016-12-17] MEDS: CYANOCOBALAMIN 1,000 MCG/ML VIAL IM SCH (09:33)
[2016-12-17] MEDS: NYSTATIN (PYXIS) 500,000 UNIT/5 ML ORAL.SUSP PO SCH ×3 (09:33→17:40)
[2016-12-17] MEDS: HYDROGEL DRESSING 90 GM TUBE TP SCH (09:34)
[2016-12-17] MEDS: NEOMY SULF/BACITRAC ZN/POLY 15 GM TUBE TP SCH (09:34)
[2016-12-17] MEDS: ENOXAPARIN SODIUM 30 MG/0.3 ML DISP.SYRIN SQ SCH (09:35)
[2016-12-17 12:00] VITALS: BP 108/52
[2016-12-17] MEDS: HYDROCODONE/APAP 5/325MG 1 EACH TABLET PO PRN ×2 (12:48→22:17)
[2016-12-17] MEDS: DILTIAZEM HCL 30 MG TABLET GT SCH ×3 (12:49→23:58)
[2016-12-17] MEDS: FIBERSOURCE HN 1,000 ML BOTTLE GT PRN (12:58)
[2016-12-17 16:00] VITALS: BP 94/48
[2016-12-17 20:00] VITALS: BP 117/69
[2016-12-18] VITALS: BP_SYST 109; BP_SYST 126; BP_DIAS 49; BP_DIAS 78
[2016-12-18] MEDS: FIBERSOURCE HN 1,000 ML BOTTLE GT PRN ×2 (00:15→17:56)
[2016-12-18] MEDS: ALBUTEROL FS 2.5 MG/3 ML VIAL.NEB NEB PRN ×3 (03:14→19:37)
[2016-12-18] MEDS: IPRATROPIUM NEB FS 0.5 MG/2.5 ML AMPUL.NEB NEB SCH ×6 (03:14→23:01)
[2016-12-18 04:00] VITALS: BP 100/52
[2016-12-18] MEDS: DILTIAZEM HCL 30 MG TABLET GT SCH ×3 (06:06→17:23)
[2016-12-18] MEDS: ACETYLCYSTEINE 10% SOLN 400 MG/4 ML VIAL NEB SCH ×3 (07:59→23:00)
[2016-12-18 08:00] VITALS: BP 115/61
[2016-12-18 08:07] LABS: BASOPHILS # (AUTO) 0.1 /CMM (0.0-0.2); DIFF TOTAL % 100 %; EOSINOPHILS # (AUTO) 0.1 /CMM (0.0-0.7); EOSINOPHILS % (AUTO) 0.8 % (0.0-6.0); HEMATOCRIT 28 % (33-45); HEMOGLOBIN 9.1 g/dL (11.5-14.8); LYMPHOCYTES # (AUTO) 0.5 /CMM (0.8-4.8); LYMPHOCYTES % (AUTO) 4.3 % (20.0-44.0); MEAN CORPUSCULAR HEMOGLOBIN 30 PG (26.0-33.0); MEAN CORPUSCULAR HGB CONC 33 g/dl (31.0-36.0); MEAN CORPUSCULAR VOLUME 91 fL (82-100); MONOCYTES # (AUTO) 0.7 /CMM (0.1-1.30); MONOCYTES % (AUTO) 5.5 % (2.0-12.0); NEUTROPHILS # (AUTO) 11.1 /CMM (1.8-8.9); NEUTROPHILS % (AUTO) 88.4 % (43.0-81.0); PLATELET COUNT (AUTO) 311 /CMM (150-450); RED BLOOD CELL COUNT(AUTO) 3.09 MIL/uL (4.0-5.2); WHITE BLOOD COUNT (AUTO) 12.5 K/uL (4.3-11.0)
[2016-12-18 08:39] LABS: CREATININE 1.3 mg/dL (0.6-1.3); POTASSIUM 4.6 mmol/L (3.5-5.1)
[2016-12-18] MEDS: NYSTATIN (PYXIS) 500,000 UNIT/5 ML ORAL.SUSP PO SCH ×3 (08:45→17:56)
[2016-12-18] MEDS: CYANOCOBALAMIN 1,000 MCG/ML VIAL IM SCH (08:45)
[2016-12-18] MEDS: NEOMY SULF/BACITRAC ZN/POLY 15 GM TUBE TP SCH (08:46)
[2016-12-18] MEDS: HYDROGEL DRESSING 90 GM TUBE TP SCH (08:51)
[2016-12-18] MEDS: ENOXAPARIN SODIUM 30 MG/0.3 ML DISP.SYRIN SQ SCH (08:51)
[2016-12-18] MEDS: HYDROCODONE/APAP 5/325MG 1 EACH TABLET PO PRN ×2 (08:51→14:21)
[2016-12-18 10:16] LABS: ABG BASE EXCESS 0.4 mmol/L; ABG PCO2 35.1 mmHg (35.0-45.0); ABG PH 7.453 (7.350-7.450); ABG TOTAL HEMOGLOBIN 10.7 G/dL (12.0-16.0); AaDO2 129.8 mmHg; O2Hb 96.3 % (94.0-97.0)
[2016-12-18 12:00] VITALS: BP 115/58
[2016-12-18 16:00] VITALS: BP 106/53
[2016-12-18 20:00] VITALS: BP 114/65
[2016-12-19] VITALS: BP 103/69
[2016-12-19] MEDS: ALBUTEROL FS 2.5 MG/3 ML VIAL.NEB NEB PRN (00:50)
[2016-12-19 02:14] LABS: ABG BASE EXCESS 2.2 mmol/L; ABG HCO3 26.8 mmol/L; ABG PCO2 41.7 mmHg (35.0-45.0); ABG PH 7.426 (7.350-7.450); ABG PO2 92.6 mmHg (75.0-100.0); ABG TOTAL HEMOGLOBIN 10.8 G/dL (12.0-16.0); ALLEN TEST Pass; AaDO2 72.3 mmHg; O2Hb 95.2 % (94.0-97.0)
[2016-12-19] MEDS: IPRATROPIUM NEB FS 0.5 MG/2.5 ML AMPUL.NEB NEB SCH ×6 (03:04→23:51)
[2016-12-19 04:00] VITALS: BP 123/64
[2016-12-19] MEDS: DILTIAZEM HCL 30 MG TABLET GT SCH ×4 (05:49→17:16)
[2016-12-19 06:16] LABS: BASOPHILS % (AUTO) 0.2 % (0.0-2.0); DIFF TOTAL % 100 %; EOSINOPHILS % (AUTO) 0.3 % (0.0-6.0); HEMATOCRIT 26 % (33-45); HEMOGLOBIN 8.7 g/dL (11.5-14.8); LYMPHOCYTES # (AUTO) 0.6 /CMM (0.8-4.8); LYMPHOCYTES % (AUTO) 5.4 % (20.0-44.0); MEAN CORPUSCULAR HEMOGLOBIN 30 PG (26.0-33.0); MEAN CORPUSCULAR HGB CONC 33 g/dl (31.0-36.0); MEAN CORPUSCULAR VOLUME 91 fL (82-100); MONOCYTES # (AUTO) 0.8 /CMM (0.1-1.30); NEUTROPHILS # (AUTO) 9.6 /CMM (1.8-8.9); NEUTROPHILS % (AUTO) 87.1 % (43.0-81.0); PLATELET COUNT (AUTO) 289 /CMM (150-450); RED BLOOD CELL COUNT(AUTO) 2.89 MIL/uL (4.0-5.2)
[2016-12-19 06:41] LABS: CALCIUM, SERUM 8.8 mg/dL (8.5-10.1); CREATININE 1.3 mg/dL (0.6-1.3); POTASSIUM 5.1 mmol/L (3.5-5.1)
[2016-12-19] MEDS: ACETYLCYSTEINE 10% SOLN 400 MG/4 ML VIAL NEB SCH ×3 (07:13→23:51)
[2016-12-19] MEDS: ONDANSETRON HCL/PF 4 MG/2 ML VIAL IVP PRN ×2 (07:16→15:23)
[2016-12-19 08:00] VITALS: BP 115/56
[2016-12-19] MEDS: CYANOCOBALAMIN 1,000 MCG/ML VIAL IM SCH (08:25)
[2016-12-19] MEDS: ENOXAPARIN SODIUM 30 MG/0.3 ML DISP.SYRIN SQ SCH (08:26)
[2016-12-19] MEDS: NYSTATIN (PYXIS) 500,000 UNIT/5 ML ORAL.SUSP PO SCH ×3 (08:27→17:16)
[2016-12-19] MEDS: NEOMY SULF/BACITRAC ZN/POLY 15 GM TUBE TP SCH (08:28)
[2016-12-19] MEDS: HYDROGEL DRESSING 90 GM TUBE TP SCH (08:28)
[2016-12-19] MEDS: HYDROCODONE/APAP 5/325MG 1 EACH TABLET PO PRN ×2 (09:19→16:15)
[2016-12-19] MEDS: LORAZEPAM 0.5 MG TABLET PO PRN (10:25)
[2016-12-19] MEDS ORDERED: ZOLPIDEM TARTRATE 5 MG TABLET PO PRN (10:30)
[2016-12-19 12:00] VITALS: BP 112/53
[2016-12-19 16:00] VITALS: BP 103/55
[2016-12-19] MEDS: FIBERSOURCE HN 1,000 ML BOTTLE GT PRN (17:16)
[2016-12-19 20:00] VITALS: BP 108/57
[2016-12-20] VITALS: BP 113/70
[2016-12-20] MEDS: DILTIAZEM HCL 30 MG TABLET GT SCH ×4 (00:02→17:42)
[2016-12-20] MEDS: LORAZEPAM 0.5 MG TABLET PO PRN (01:08)
[2016-12-20] MEDS: IPRATROPIUM NEB FS 0.5 MG/2.5 ML AMPUL.NEB NEB SCH ×4 (03:46→15:13)
[2016-12-20 04:00] VITALS: BP 95/58
[2016-12-20 07:12] LABS: BASOPHILS % (AUTO) 0.2 % (0.0-2.0); DIFF TOTAL % 100 %; HEMATOCRIT 28 % (33-45); HEMOGLOBIN 9.3 g/dL (11.5-14.8); LYMPHOCYTES # (AUTO) 0.7 /CMM (0.8-4.8); LYMPHOCYTES % (AUTO) 6.5 % (20.0-44.0); MEAN CORPUSCULAR HEMOGLOBIN 30 PG (26.0-33.0); MEAN CORPUSCULAR HGB CONC 33 g/dl (31.0-36.0); MEAN CORPUSCULAR VOLUME 92 fL (82-100); MONOCYTES # (AUTO) 0.6 /CMM (0.1-1.30); MONOCYTES % (AUTO) 5.9 % (2.0-12.0); NEUTROPHILS % (AUTO) 87.4 % (43.0-81.0); PLATELET COUNT (AUTO) 255 /CMM (150-450); RED BLOOD CELL COUNT(AUTO) 3.09 MIL/uL (4.0-5.2); WHITE BLOOD COUNT (AUTO) 10.3 K/uL (4.3-11.0)
[2016-12-20 07:14] LABS: CALCIUM, SERUM 8.9 mg/dL (8.5-10.1); CREATININE 1.4 mg/dL (0.6-1.3); POTASSIUM 5.3 mmol/L (3.5-5.1)
[2016-12-20] MEDS: ACETYLCYSTEINE 10% SOLN 400 MG/4 ML VIAL NEB SCH ×2 (07:22→15:13)
[2016-12-20 08:00] VITALS: BP 108/67
[2016-12-20] MEDS: NYSTATIN (PYXIS) 500,000 UNIT/5 ML ORAL.SUSP PO SCH ×3 (08:51→17:39)
[2016-12-20] MEDS: CYANOCOBALAMIN 1,000 MCG/ML VIAL IM SCH (08:51)
[2016-12-20] MEDS: ENOXAPARIN SODIUM 30 MG/0.3 ML DISP.SYRIN SQ SCH (08:52)
[2016-12-20] MEDS: Z GUARD REMEDY 2 OZ OINT TP PRN (08:58)
[2016-12-20] MEDS: NEOMY SULF/BACITRAC ZN/POLY 15 GM TUBE TP SCH (08:58)
[2016-12-20] MEDS: HYDROGEL DRESSING 90 GM TUBE TP SCH (08:58)
[2016-12-20] MEDS ORDERED: Ipratropium Bromide NEB (11:45)
[2016-12-20] MEDS ORDERED: HYDR-3326 PO (11:45)
[2016-12-20] MEDS ORDERED: ACET325T53 PO (11:45)
[2016-12-20] MEDS ORDERED: ACET1OOV6 NEB (11:45)
[2016-12-20] MEDS ORDERED: ALBUT2 NEB (11:45)
[2016-12-20] MEDS ORDERED: DILT30TA14 GT (11:45)
[2016-12-20] MEDS ORDERED: CYAN10006 IM (11:45)
[2016-12-20] MEDS ORDERED: Docusate Sodium PO (11:45)
[2016-12-20] MEDS ORDERED: Nutritional Supplement/Fiber GT (11:46)
[2016-12-20] MEDS ORDERED: LORA-258 PO (11:46)
[2016-12-20] MEDS ORDERED: ENOX30DI SQ (11:46)
[2016-12-20] MEDS ORDERED: Zolpidem Tartrate PO (11:46)
[2016-12-20] MEDS ORDERED: NEOM15OI3 TP (11:46)
[2016-12-20] MEDS: FIBERSOURCE HN 1,000 ML BOTTLE GT PRN (11:59)
[2016-12-20 12:00] VITALS: BP 106/62
[2016-12-20 16:00] VITALS: BP 101/53
[2016-12-20 17:42] VITALS: BP 128/71
== END 2016-12-20 19:22 | disposition short-term general hospital (02) | DRG 3 ==
LOC: ER 21:14 → TELE 11-24 00:58 → MED 11-27 12:45 → ICU 11-29 19:30 → TELE-TD 12-04 09:58 → ICU 12-04 22:16 → TELE1 12-16 17:59 → ICU 12-16 18:10 → TELE-TD 12-16 18:11 → TELE1 12-17 11:10
PROVIDERS: ADMIT Family Medicine; ATTEND Family Medicine
PROC: 02HV33Z Insertion of Infusion Device into Superior Vena Cava, Percutaneous Approach (ICD-10-PCS; 2016-11-25)
PROC: B548ZZA Ultrasonography of Superior Vena Cava, Guidance (ICD-10-PCS; 2016-11-25)
PROC: 0DBW0ZX Excision of Peritoneum, Open Approach, Diagnostic (ICD-10-PCS; principal; 2016-11-29 17:58)
PROC: 0WJG0ZZ Inspection of Peritoneal Cavity, Open Approach (ICD-10-PCS; principal; 2016-11-29 17:58)
PROC: 03HC33Z Insertion of Infusion Device into Left Radial Artery, Percutaneous Approach (ICD-10-PCS; principal; 2016-11-29 17:58)
PROC: 5A1955Z Respiratory Ventilation, Greater than 96 Consecutive Hours (ICD-10-PCS; 2016-12-05)
PROC: 0BH18EZ Insertion of Endotracheal Airway into Trachea, Via Natural or Artificial Opening Endoscopic (ICD-10-PCS; 2016-12-05)
PROC: 0DH63UZ Insertion of Feeding Device into Stomach, Percutaneous Approach (ICD-10-PCS; 2016-12-14)
PROC: 0B110F4 Bypass Trachea to Cutaneous with Tracheostomy Device, Open Approach (ICD-10-PCS; 2016-12-14)
DX: A41.9 Sepsis, unspecified organism (principal); I21.4 Non-ST elevation (NSTEMI) myocardial infarction; J15.9 Unspecified bacterial pneumonia; G93.40 Encephalopathy, unspecified; J69.0 Pneumonitis due to inhalation of food and vomit; J96.01 Acute respiratory failure with hypoxia; J96.02 Acute respiratory failure with hypercapnia; R65.21 Severe sepsis with septic shock; I50.43 Acute on chronic combined systolic (congestive) and diastolic (congestive) heart failure; K56.60 Unspecified intestinal obstruction; J90 Pleural effusion, not elsewhere classified; D68.59 Other primary thrombophilia; N39.0 Urinary tract infection, site not specified; E44.0 Moderate protein-calorie malnutrition; I13.0 Hypertensive heart and chronic kidney disease with heart failure and stage 1 through stage 4 chronic kidney disease, or unspecified chronic kidney disease; N17.9 Acute kidney failure, unspecified; B37.49 Other urogenital candidiasis; E87.0 Hyperosmolality and hypernatremia; J98.11 Atelectasis; Z90.49 Acquired absence of other specified parts of digestive tract; C76.3 Malignant neoplasm of pelvis; B96.20 Unspecified Escherichia coli [E. coli] as the cause of diseases classified elsewhere; N18.3 Chronic kidney disease, stage 3 (moderate); I25.5 Ischemic cardiomyopathy; Z95.0 Presence of cardiac pacemaker; Z98.61 Coronary angioplasty status; Z79.01 Long term (current) use of anticoagulants; E86.9 Volume depletion, unspecified; E53.8 Deficiency of other specified B group vitamins; I25.10 Atherosclerotic heart disease of native coronary artery without angina pectoris; Z87.440 Personal history of urinary (tract) infections; E88.09 Other disorders of plasma-protein metabolism, not elsewhere classified; M62.50 Muscle wasting and atrophy, not elsewhere classified, unspecified site; I35.0 Nonrheumatic aortic (valve) stenosis; R19.00 Intra-abdominal and pelvic swelling, mass and lump, unspecified site; N83.209 Unspecified ovarian cyst, unspecified side; R91.8 Other nonspecific abnormal finding of lung field; L89.152 Pressure ulcer of sacral region, stage 2; L98.9 Disorder of the skin and subcutaneous tissue, unspecified; Z90.710 Acquired absence of both cervix and uterus; Z85.118 Personal history of other malignant neoplasm of bronchus and lung; R13.10 Dysphagia, unspecified; I48.2 Chronic atrial fibrillation; I44.7 Left bundle-branch block, unspecified
CPT/HCPCS: 31720; 36415; 36569; 36600; 43246; 71010-TC; 71250-TC; 71260-TC; 72192-TC; 74020-TC; 74150-TC; 74250-TC; 76856-TC; 80048-TC; 80053-TC; 80076-TC; 80202-TC; 81000-TC; 82105; 82272-TC; 82378; 82728-TC; 82803-TC; 82962-TC; 83540-TC; 83605-TC; 83690-TC; 83735-TC; 83880; 84100-TC; 84155; 84165; 84439-TC; 84443-TC; 84478-TC; 84484-TC; 85025-TC; 85045-TC; 85385-TC; 85396; 85610-TC; 85730-TC; 86304; 86850-TC; 86901; 86921-TC; 87040-TC; 87070-TC; 87081-TC; 87086-TC; 87186-TC; 88305-TC; 88312-TC; 89055; 93307-TC; 94002-TC; 94003-TC; 94660; 94760-TC; 94799-TC; 97001-TC; 97116-TC; 97530-TC; 99082-TC; A4216; A4606; A6248; A6253; A6402; A7526; C1751; C9113; J0282; J0330; J0696; J1160; J1170; J1450; J1650; J1815; J1940; J1956; J2060; J2185; J2248; J2270; J2405; J2543; J2916; J3010; J3370; J3420; J3475; J3480; J3490; J7030; J7040; J7050; J7060; Q9963; Q9967; Z7610

== ENCOUNTER 2017-01-29 16:06 | Inpatient (IN) | payer MEDICARE ==
[~2017-01-29] VITALS: Ht 157.5 cm; Wt 78.5 kg
[~2017-01-29 16:06] MED LIST changes: +ACET1OOV6 NEB; +ACET325T53 PO; +ALBUT2 NEB; +ASPI81TA2 PO; +ATOR80TA PO; +CYAN10006 IM; +DILT30TA14 GT; +Docusate Sodium PO; +ENOX30DI SQ; -FEE EMEERGENCY 1 MIN EA MC ONE; +HYDR-3326 PO; +Ipratropium Bromide NEB; +LORA-258 PO; +NEOM15OI3 TP; +Nutritional Supplement/Fiber GT; +Zolpidem Tartrate PO
[2017-01-29] MEDS ORDERED: IV SET PRIMARY 1 EA INFUS.SET MC ONE (16:26)
[2017-01-29] MEDS ORDERED: IV NS 0.9% 500 ML IV ONE (16:26)
[2017-01-29] MEDS ORDERED: IV NS 0.9% 500 ML BAG IV ONE (16:30)
[2017-01-29 16:38] LABS: BASOPHILS # (AUTO) 0.1 /CMM (0.0-0.2); BASOPHILS % (AUTO) 0.3 % (0.0-2.0); DIFF TOTAL % 100 %; EOSINOPHILS % (AUTO) 0.1 % (0.0-6.0); HEMATOCRIT 30 % (33-45); HEMOGLOBIN 10.2 g/dL (11.5-14.8); LYMPHOCYTES # (AUTO) 0.6 /CMM (0.8-4.8); LYMPHOCYTES % (AUTO) 3.1 % (20.0-44.0); MEAN CORPUSCULAR HEMOGLOBIN 29 PG (26.0-33.0); MEAN CORPUSCULAR HGB CONC 34 g/dl (31.0-36.0); MEAN CORPUSCULAR VOLUME 86 fL (82-100); MONOCYTES # (AUTO) 1.2 /CMM (0.1-1.30); MONOCYTES % (AUTO) 6.2 % (2.0-12.0); NEUTROPHILS # (AUTO) 18.2 /CMM (1.8-8.9); NEUTROPHILS % (AUTO) 90.3 % (43.0-81.0); PLATELET COUNT (AUTO) 243 /CMM (150-450); RED BLOOD CELL COUNT(AUTO) 3.47 MIL/uL (4.0-5.2); WHITE BLOOD COUNT (AUTO) 20.1 K/uL (4.3-11.0)
[2017-01-29 16:40] VITALS: BP 107/65
[2017-01-29 16:40] LABS: KETONES,URINE Negative (NEGATIVE); LEUKOCYTE ESTERASE ,URINE Large (NEGATIVE)
[2017-01-29 16:43] LABS: ADD UA MICROSCOPIC YES
[2017-01-29 16:51] LABS: ADD URINE CULTURE YES; INR 1.1 (0.87-1.13); PROTHROMBIN TIME 11.5 SECS (9.5-12.7); WBC,URINE 21-50 /HPF (0-3)
[2017-01-29 16:59] LABS: ALANINE AMINOTRANSFERASE 27 U/L (12-78); ANION GAP 14 (5-14); ASPARTATE AMINOTRANSFERASE 32 U/L (15-37); BILIRUBIN,DIRECT 0.3 mg/dL (0.0-0.2); BILIRUBIN,TOTAL 0.8 mg/dL (0.2-1.0); CALCIUM, SERUM 8.3 mg/dL (8.5-10.1); CARBON DIOXIDE 30 mmol/L (21-32); CHLORIDE 94 mmol/L (98-107); CREATININE 1.5 mg/dL (0.6-1.3); GLUCOSE 128 mg/dL (74-106); INDIRECT BILIRUBIN 0.5 mg/dL (0.0-1.1); SODIUM SERUM 136 mmol/L (136-145); TOTAL PROTEIN, SERUM 6.2 g/dL (6.4-8.2); UREA NITROGEN, BLOOD 68 mg/dL (7-18)
[2017-01-29] MEDS ORDERED: PIPERACILLIN /TAZOBACTAM 3.375 G in IV D5W 50 ML IV ONE (17:00)
[2017-01-29 17:03] LABS: LACTIC ACID 2.5 mmol/L (0.4-2.0); POTASSIUM 2.7 mmol/L (3.5-5.1)
[2017-01-29 17:09] LABS: TROPONIN I 0.919 ng/mL (0.00-0.056)
[2017-01-29] MEDS ORDERED: IV SET PRIMARY PUMP SET 1 EA INFUS.SET MC ONE ×4 (17:16→21:25)
[2017-01-29] MEDS ORDERED: Magnesium 1GM/D5W 100ML PREMIX 200 ML IV ONE (17:16)
[2017-01-29 17:28] LABS: *LACTIC ACID REFLEX FLAG YES
[2017-01-29] MEDS ORDERED: Magnesium 1 GM/2 ML VIAL IV ONE (17:30)
[2017-01-29] MEDS ORDERED: IV NS 0.9% 1,000 ML IV ONE (17:30)
[2017-01-29] MEDS ORDERED: DILT60TA35 GT (17:38)
[2017-01-29] MEDS ORDERED: METO2.5T2 GT (17:38)
[2017-01-29] MEDS ORDERED: HYDR-552 GT (17:38)
[2017-01-29] MEDS ORDERED: BETH25TA10 GT (17:38)
[2017-01-29] MEDS ORDERED: ASPI81TA2 PO (17:38)
[2017-01-29] MEDS ORDERED: BUME1TAB16 GT (17:38)
[2017-01-29] MEDS ORDERED: POLY119P2 GT (17:38)
[2017-01-29] MEDS ORDERED: IPRA0.2S9 INH (17:38)
[2017-01-29] MEDS ORDERED: TRAM50TA2 GT (17:38)
[2017-01-29] MEDS ORDERED: LACT-96 GT (17:38)
[2017-01-29] MEDS ORDERED: MULT-213 GT (17:38)
[2017-01-29] MEDS ORDERED: SIME80TA15 GT (17:38)
[2017-01-29] MEDS ORDERED: ONDA4TAB5 GT (17:38)
[2017-01-29] MEDS ORDERED: LANS30CA10 GT (17:38)
[2017-01-29] MEDS ORDERED: ATOR80TA GT (17:38)
[2017-01-29] MEDS ORDERED: ACET650S26 GT (17:38)
[2017-01-29] MEDS ORDERED: ALBU2.5V38 INH (17:38)
[2017-01-29] MEDS ORDERED: IV NS 0.9% 250 ML IV ONE ×3 (17:41→20:23)
[2017-01-29] MEDS ORDERED: [UNRECOGNIZED DRUG - CODE] IM (17:43)
[2017-01-29] MEDS ORDERED: MAGN400O6 GT (17:44)
[2017-01-29] MEDS ORDERED: NA P133E RC (17:44)
[2017-01-29] MEDS ORDERED: POTASSIUM CL. PREMIX PERIPHER. 200 ML ONE (17:48)
[2017-01-29] MEDS ORDERED: POTASSIUM CL. PREMIX PERIPHER. 50 ML IV SCH (18:00)
[2017-01-29 18:09] VITALS: BP 119/49
[2017-01-29] MEDS: POTASSIUM CL. PREMIX PERIPHER. 50 ML IV SCH ×4 (18:15→22:10)
[2017-01-29] MEDS ORDERED: ASPIRIN 300 MG/SUPP.RECT RC ONE ×2 (18:29→18:30)
[2017-01-29 19:18] LABS: BAND % (MANUAL) 10 % (0.0-5.0); LYMPHOCYTES % (MANUAL) 4 % (16-48)
[2017-01-29 19:19] LABS: ANISOCYTOSIS 1+; MICROCYTOSIS 1+; PLATELET ESTIMATE ADEQU
[2017-01-29] MEDS ORDERED: SECONDARY IV SET 1 EA INFUS.SET MC ONE ×3 (19:32→23:16)
[2017-01-29 20:00] VITALS: BP 121/61
[2017-01-29] MEDS ORDERED: LORAZEPAM 1 MG TABLET ONE (21:24)
[2017-01-29] MEDS ORDERED: PIPERACILLIN /TAZOBACTAM 3.375 G VIAL IV ONE (21:24)
[2017-01-29] MEDS ORDERED: IV D5W 50 ML IV ONE ×2 (21:25→21:36)
[2017-01-29] MEDS ORDERED: GLYTROL 1,000 ML BAG ONE (21:45)
[2017-01-29] MEDS: PIPERACILLIN /TAZOBACTAM 3.375 G in IV D5W 50 ML IV SCH (23:22)
[2017-01-29] MEDS ORDERED: TRAMADOL HCL 50 MG TABLET ONE (23:37)
[2017-01-30] VITALS: BP 91/51
[2017-01-30] MEDS: TRAMADOL HCL 50 MG TABLET GT PRN ×2 (00:01→17:17)
[2017-01-30] MEDS: GLYTROL 1,000 ML BAG GT PRN (00:12)
[2017-01-30] MEDS: ALBUTEROL FS 2.5 MG/3 ML VIAL.NEB NEB SCH ×4 (01:30→19:46)
[2017-01-30 04:00] VITALS: BP 100/54
[2017-01-30] MEDS ORDERED: PIPERACILLIN /TAZOBACTAM 3.375 G VIAL IV ONE (05:09)
[2017-01-30] MEDS ORDERED: LORAZEPAM 1 MG TABLET ONE (05:09)
[2017-01-30] MEDS ORDERED: IV D5W 50 ML IV ONE (05:10)
[2017-01-30] MEDS: LORAZEPAM 1 MG TABLET GT PRN ×3 (05:12→17:09)
[2017-01-30] MEDS: PIPERACILLIN /TAZOBACTAM 3.375 G in IV D5W 50 ML IV SCH (05:39)
[2017-01-30] MEDS ORDERED: HYDROCODONE/APAP 5/325MG 1 EACH TABLET ONE (05:51)
[2017-01-30] MEDS ORDERED: HYDROCODONE/APAP 5/325MG 1 EACH TABLET PO PRN (06:00)
[2017-01-30 07:26] LABS: CALCIUM, SERUM 8.6 mg/dL (8.5-10.1); CREATININE 1.2 mg/dL (0.6-1.3); POTASSIUM 3.4 mmol/L (3.5-5.1)
[2017-01-30 07:32] LABS: DIFF TOTAL % 100 %; HEMATOCRIT 30 % (33-45); HEMOGLOBIN 9.8 g/dL (11.5-14.8); LYMPHOCYTES # (AUTO) 0.3 /CMM (0.8-4.8); LYMPHOCYTES % (AUTO) 1.8 % (20.0-44.0); MEAN CORPUSCULAR HEMOGLOBIN 28 PG (26.0-33.0); MEAN CORPUSCULAR HGB CONC 33 g/dl (31.0-36.0); MEAN CORPUSCULAR VOLUME 87 fL (82-100); MONOCYTES # (AUTO) 0.9 /CMM (0.1-1.30); MONOCYTES % (AUTO) 4.5 % (2.0-12.0); NEUTROPHILS # (AUTO) 17.7 /CMM (1.8-8.9); NEUTROPHILS % (AUTO) 93.7 % (43.0-81.0); PLATELET COUNT (AUTO) 188 /CMM (150-450); RED BLOOD CELL COUNT(AUTO) 3.45 MIL/uL (4.0-5.2); WHITE BLOOD COUNT (AUTO) 18.9 K/uL (4.3-11.0)
[2017-01-30 08:00] VITALS: BP 100/40
[2017-01-30 08:49] LABS: ANISOCYTOSIS 1+; PLATELET ESTIMATE ADEQUATE
[2017-01-30] MEDS ORDERED: METOLAZONE 2.5 MG TABLET GT SCH (09:00)
[2017-01-30] MEDS ORDERED: HYDROCODONE/APAP 5/325MG 1 EACH TABLET GT PRN (09:00)
[2017-01-30] MEDS ORDERED: FIBERSOURCE HN 1,000 ML BOTTLE GT PRN (09:00)
[2017-01-30] MEDS ORDERED: MAGNESIUM HYDROXIDE 30 ML UDC GT PRN (09:00)
[2017-01-30] MEDS ORDERED: PANTOPRAZOLE 40 MG/PACK PACK GT SCH (09:00)
[2017-01-30] MEDS ORDERED: TRAMADOL HCL 50 MG TABLET GT PRN (09:00)
[2017-01-30] MEDS ORDERED: ACETAMINOPHEN 650 MG/20.3 ML UDC GT PRN (09:00)
[2017-01-30] MEDS ORDERED: NA PHOS,M-B/NA PHOS,DI-BA 1 EA ENEMA RC PRN (09:00)
[2017-01-30] MEDS ORDERED: POLYETHYLENE GLYCOL 3350 17 GM POWD.PACK PO PRN (09:00)
[2017-01-30] MEDS: DILTIAZEM HCL 30 MG TABLET GT SCH ×2 (09:29→17:05)
[2017-01-30] MEDS: ASPIRIN 81 MG TAB.CHEW GT SCH (09:29)
[2017-01-30] MEDS: BUMETANIDE (1 MG) 1 MG TABLET GT SCH ×2 (09:29→17:05)
[2017-01-30] MEDS: SIMETHICONE 80 MG TAB.CHEW GT SCH ×4 (09:30→21:00)
[2017-01-30] MEDS: BETHANECHOL CHLORIDE (25 MG) 25 MG TABLET GT SCH ×3 (09:30→17:05)
[2017-01-30] MEDS: CYANOCOBALAMIN 1,000 MCG/ML VIAL IM SCH (09:30)
[2017-01-30] MEDS: MULTIVITAMINS W-MINERALS 1 TAB TABLET GT SCH (09:34)
[2017-01-30] MEDS: ATORVASTATIN 40 MG TABLET GT SCH (09:34)
[2017-01-30] MEDS ORDERED: POTASSIUM CHLORIDE 20 MEQ POWDER PACKET GT ONE ×2 (10:00→10:30)
[2017-01-30 11:02] LABS: ABG BASE EXCESS 6.6 mmol/L; ABG HCO3 30.5 mmol/L; ABG NOTIFIED WHOM RN; ABG PCO2 40.8 mmHg (35.0-45.0); ABG PH 7.491 (7.350-7.450); ABG PO2 93.1 mmHg (75.0-100.0); ABG TOTAL HEMOGLOBIN 10.8 G/dL (12.0-16.0); ALLEN TEST PASSED; AaDO2 72.9 mmHg; O2Hb 95.6 % (94.0-97.0)
[2017-01-30 12:00] VITALS: BP_SYST 104; BP_SYST 88; BP_DIAS 50; BP_DIAS 68
[2017-01-30] MEDS ORDERED: PIPERACILLIN /TAZOBACTAM 2.25 G in IV D5W 50 ML IV SCH (12:00)
[2017-01-30] MEDS ORDERED: ALBUTEROL FS 2.5 MG/3 ML VIAL.NEB INH SCH (12:00)
[2017-01-30] MEDS: IPRATROPIUM NEB FS 0.5 MG/2.5 ML AMPUL.NEB INH SCH ×2 (12:56→19:46)
[2017-01-30 16:00] VITALS: BP 120/93
[2017-01-30] MEDS: MEROPENEM 500 MG in IV NS 0.9% 50 ML IV SCH (18:16)
[2017-01-30 20:00] VITALS: BP 102/49
[2017-01-31] VITALS: BP 89/39
[2017-01-31] MEDS: GLYTROL 1,000 ML BAG GT PRN (00:12)
[2017-01-31] MEDS: ALBUTEROL FS 2.5 MG/3 ML VIAL.NEB NEB SCH ×4 (01:24→19:42)
[2017-01-31] MEDS: IPRATROPIUM NEB FS 0.5 MG/2.5 ML AMPUL.NEB INH SCH ×4 (01:24→19:42)
[2017-01-31 04:00] VITALS: BP 105/61
[2017-01-31] MEDS: MEROPENEM 500 MG in IV NS 0.9% 50 ML IV SCH ×2 (05:51→18:04)
[2017-01-31 07:36] LABS: CALCIUM, SERUM 8.3 mg/dL (8.5-10.1); CREATININE 1.3 mg/dL (0.6-1.3); POTASSIUM 3.1 mmol/L (3.5-5.1)
[2017-01-31 08:00] VITALS: BP 102/60
[2017-01-31] MEDS: BUMETANIDE (1 MG) 1 MG TABLET GT SCH (09:11)
[2017-01-31] MEDS: DILTIAZEM HCL 30 MG TABLET GT SCH ×2 (09:12→17:00)
[2017-01-31] MEDS: MULTIVITAMINS W-MINERALS 1 TAB TABLET GT SCH (09:12)
[2017-01-31] MEDS: ATORVASTATIN 40 MG TABLET GT SCH (09:12)
[2017-01-31] MEDS: SIMETHICONE 80 MG TAB.CHEW GT SCH ×4 (09:12→21:24)
[2017-01-31] MEDS: BETHANECHOL CHLORIDE (25 MG) 25 MG TABLET GT SCH ×3 (09:12→18:03)
[2017-01-31] MEDS: CYANOCOBALAMIN 1,000 MCG/ML VIAL IM SCH (09:12)
[2017-01-31] MEDS: ASPIRIN 81 MG TAB.CHEW GT SCH (09:12)
[2017-01-31] MEDS ORDERED: HYDROGEL DRESSING 90 GM TUBE TP PRN (11:00)
[2017-01-31] MEDS: Z GUARD REMEDY 2 OZ OINT TP SCH (11:18)
[2017-01-31] MEDS: HYDROGEL DRESSING 90 GM TUBE TP SCH (11:18)
[2017-01-31 12:00] VITALS: BP 90/44
[2017-01-31] MEDS: POTASSIUM CHLORIDE 20 MEQ TAB.PRT.SR PO SCH ×3 (12:30→14:06)
[2017-01-31 16:00] VITALS: BP 89/56
[2017-01-31 20:00] VITALS: BP 99/56
[2017-01-31] MEDS: METRONIDAZOLE 500 MG TABLET PO SCH (21:24)
[2017-02-01] VITALS: BP 98/65
[2017-02-01] MEDS: ALBUTEROL FS 2.5 MG/3 ML VIAL.NEB NEB SCH ×4 (01:32→19:27)
[2017-02-01] MEDS: IPRATROPIUM NEB FS 0.5 MG/2.5 ML AMPUL.NEB INH SCH ×4 (01:32→19:27)
[2017-02-01] MEDS: GLYTROL 1,000 ML BAG GT PRN (02:20)
[2017-02-01 04:00] VITALS: BP 105/66
[2017-02-01] MEDS: METRONIDAZOLE 500 MG TABLET PO SCH ×2 (05:36→12:38)
[2017-02-01] MEDS: MEROPENEM 500 MG in IV NS 0.9% 50 ML IV SCH ×2 (05:36→17:29)
[2017-02-01] MEDS ORDERED: IV NS 0.9% 250 ML IV ONE (06:17)
[2017-02-01 07:16] LABS: BASOPHILS % (AUTO) 0.4 % (0.0-2.0); DIFF TOTAL % 100 %; EOSINOPHILS # (AUTO) 0.1 /CMM (0.0-0.7); EOSINOPHILS % (AUTO) 0.5 % (0.0-6.0); HEMATOCRIT 27 % (33-45); LYMPHOCYTES # (AUTO) 0.7 /CMM (0.8-4.8); LYMPHOCYTES % (AUTO) 6.2 % (20.0-44.0); MEAN CORPUSCULAR HEMOGLOBIN 28 PG (26.0-33.0); MEAN CORPUSCULAR HGB CONC 33 g/dl (31.0-36.0); MEAN CORPUSCULAR VOLUME 86 fL (82-100); MONOCYTES # (AUTO) 1.2 /CMM (0.1-1.30); NEUTROPHILS % (AUTO) 81.9 % (43.0-81.0); PLATELET COUNT (AUTO) 222 /CMM (150-450); RED BLOOD CELL COUNT(AUTO) 3.19 MIL/uL (4.0-5.2); WHITE BLOOD COUNT (AUTO) 11.1 K/uL (4.3-11.0)
[2017-02-01 07:47] LABS: ALBUMIN 1.7 g/dL (3.4-5.0); BILIRUBIN,TOTAL 0.6 mg/dL (0.2-1.0); CALCIUM, SERUM 8.6 mg/dL (8.5-10.1); CREATININE 1.3 mg/dL (0.6-1.3); PHOSPHORUS 3.8 mg/dL (2.5-4.9); POTASSIUM 3.2 mmol/L (3.5-5.1)
[2017-02-01 08:00] VITALS: BP 104/50
[2017-02-01] MEDS: HYDROGEL DRESSING 90 GM TUBE TP SCH (08:44)
[2017-02-01] MEDS: Z GUARD REMEDY 2 OZ OINT TP SCH (08:44)
[2017-02-01] MEDS: ASPIRIN 81 MG TAB.CHEW GT SCH (08:46)
[2017-02-01] MEDS: MULTIVITAMINS W-MINERALS 1 TAB TABLET GT SCH (08:46)
[2017-02-01] MEDS: CYANOCOBALAMIN 1,000 MCG/ML VIAL IM SCH (08:46)
[2017-02-01] MEDS: BETHANECHOL CHLORIDE (25 MG) 25 MG TABLET GT SCH ×3 (08:46→17:28)
[2017-02-01] MEDS: SIMETHICONE 80 MG TAB.CHEW GT SCH ×4 (08:50→22:02)
[2017-02-01] MEDS: DILTIAZEM HCL 30 MG TABLET GT SCH ×2 (09:00→17:28)
[2017-02-01] MEDS: POTASSIUM CHLORIDE 20 MEQ TAB.PRT.SR PO SCH ×3 (10:29→12:35)
[2017-02-01 12:00] VITALS: BP 102/70
[2017-02-01] MEDS: ACETYLCYSTEINE 10% SOLN 400 MG/4 ML VIAL NEB SCH ×2 (15:30→23:48)
[2017-02-01 16:00] VITALS: BP 114/45
[2017-02-01 20:00] VITALS: BP 99/48
[2017-02-01] MEDS ORDERED: ZOLPIDEM TARTRATE 5 MG TABLET ONE (23:20)
[2017-02-01] MEDS: ZOLPIDEM TARTRATE 5 MG TABLET PO PRN (23:24)
[2017-02-02] VITALS: BP 107/54
[2017-02-02] MEDS ORDERED: ONDANSETRON 4 MG TAB.RAPDIS ONE (01:10)
[2017-02-02] MEDS: ONDANSETRON 4 MG TAB.RAPDIS GT PRN ×2 (01:17→10:21)
[2017-02-02] MEDS: ALBUTEROL FS 2.5 MG/3 ML VIAL.NEB NEB SCH ×4 (01:30→20:12)
[2017-02-02] MEDS: IPRATROPIUM NEB FS 0.5 MG/2.5 ML AMPUL.NEB INH SCH ×4 (01:40→20:12)
[2017-02-02 04:00] VITALS: BP 108/54
[2017-02-02] MEDS: GLYTROL 1,000 ML BAG GT PRN (05:45)
[2017-02-02] MEDS: MEROPENEM 500 MG in IV NS 0.9% 50 ML IV SCH ×2 (05:47→17:35)
[2017-02-02] MEDS: ACETYLCYSTEINE 10% SOLN 400 MG/4 ML VIAL NEB SCH ×3 (07:35→23:59)
[2017-02-02 08:00] VITALS: BP 124/91
[2017-02-02] MEDS: ASPIRIN 81 MG TAB.CHEW GT SCH (08:36)
[2017-02-02] MEDS: DILTIAZEM HCL 30 MG TABLET GT SCH ×2 (08:37→16:32)
[2017-02-02] MEDS: SIMETHICONE 80 MG TAB.CHEW GT SCH ×4 (08:37→21:11)
[2017-02-02] MEDS: LORAZEPAM 1 MG TABLET GT PRN ×2 (08:38→19:03)
[2017-02-02] MEDS: BETHANECHOL CHLORIDE (25 MG) 25 MG TABLET GT SCH ×3 (08:38→16:32)
[2017-02-02] MEDS: HYDROGEL DRESSING 90 GM TUBE TP SCH (08:38)
[2017-02-02] MEDS: MULTIVITAMINS W-MINERALS 1 TAB TABLET GT SCH (08:38)
[2017-02-02] MEDS: CYANOCOBALAMIN 1,000 MCG/ML VIAL IM SCH (08:38)
[2017-02-02] MEDS: Z GUARD REMEDY 2 OZ OINT TP SCH (08:39)
[2017-02-02 12:00] VITALS: BP 133/105
[2017-02-02 16:00] VITALS: BP 101/54
[2017-02-02 20:00] VITALS: BP 90/55
[2017-02-02] MEDS: ZOLPIDEM TARTRATE 5 MG TABLET PO PRN (21:11)
[2017-02-03] VITALS: BP 107/57
[2017-02-03] MEDS: ALBUTEROL FS 2.5 MG/3 ML VIAL.NEB NEB SCH ×4 (01:34→19:42)
[2017-02-03] MEDS: IPRATROPIUM NEB FS 0.5 MG/2.5 ML AMPUL.NEB INH SCH ×4 (01:35→19:42)
[2017-02-03] MEDS: LORAZEPAM 1 MG TABLET GT PRN (02:49)
[2017-02-03 04:00] VITALS: BP 96/70
[2017-02-03] MEDS: MEROPENEM 500 MG in IV NS 0.9% 50 ML IV SCH ×2 (06:23→17:01)
[2017-02-03 07:30] LABS: BASOPHILS # (AUTO) 0.1 /CMM (0.0-0.2); BASOPHILS % (AUTO) 0.7 % (0.0-2.0); DIFF TOTAL % 100 %; HEMATOCRIT 27 % (33-45); HEMOGLOBIN 8.7 g/dL (11.5-14.8); LYMPHOCYTES # (AUTO) 0.6 /CMM (0.8-4.8); LYMPHOCYTES % (AUTO) 6.7 % (20.0-44.0); MEAN CORPUSCULAR HEMOGLOBIN 28 PG (26.0-33.0); MEAN CORPUSCULAR HGB CONC 33 g/dl (31.0-36.0); MEAN CORPUSCULAR VOLUME 87 fL (82-100); MONOCYTES # (AUTO) 0.9 /CMM (0.1-1.30); MONOCYTES % (AUTO) 10.1 % (2.0-12.0); NEUTROPHILS # (AUTO) 7.2 /CMM (1.8-8.9); NEUTROPHILS % (AUTO) 82.5 % (43.0-81.0); PLATELET COUNT (AUTO) 260 /CMM (150-450); RED BLOOD CELL COUNT(AUTO) 3.06 MIL/uL (4.0-5.2); WHITE BLOOD COUNT (AUTO) 8.7 K/uL (4.3-11.0)
[2017-02-03] MEDS: ACETYLCYSTEINE 10% SOLN 400 MG/4 ML VIAL NEB SCH ×3 (07:40→23:11)
[2017-02-03 07:42] LABS: ALBUMIN 1.7 g/dL (3.4-5.0); BILIRUBIN,TOTAL 0.4 mg/dL (0.2-1.0); CALCIUM, SERUM 8.8 mg/dL (8.5-10.1); CREATININE 1.1 mg/dL (0.6-1.3); PHOSPHORUS 3.8 mg/dL (2.5-4.9); POTASSIUM 3.2 mmol/L (3.5-5.1); TOTAL PROTEIN, SERUM 5.5 g/dL (6.4-8.2)
[2017-02-03 07:53] LABS: TROPONIN I 0.403 ng/mL (0.00-0.056)
[2017-02-03 08:00] VITALS: BP 95/61
[2017-02-03] MEDS ORDERED: IV NS 0.9% 250 ML IV ONE (08:08)
[2017-02-03] MEDS ORDERED: IV SET PRIMARY PUMP SET 1 EA INFUS.SET MC ONE (08:08)
[2017-02-03] MEDS ORDERED: SECONDARY IV SET 1 EA INFUS.SET MC ONE (08:08)
[2017-02-03] MEDS: SIMETHICONE 80 MG TAB.CHEW GT SCH ×4 (08:25→20:53)
[2017-02-03] MEDS: CYANOCOBALAMIN 1,000 MCG/ML VIAL IM SCH (08:25)
[2017-02-03] MEDS: DILTIAZEM HCL 30 MG TABLET GT SCH ×2 (08:25→16:08)
[2017-02-03] MEDS: BETHANECHOL CHLORIDE (25 MG) 25 MG TABLET GT SCH ×3 (08:25→16:09)
[2017-02-03] MEDS: ASPIRIN 81 MG TAB.CHEW GT SCH (08:25)
[2017-02-03] MEDS: MULTIVITAMINS W-MINERALS 1 TAB TABLET GT SCH (08:25)
[2017-02-03] MEDS: Z GUARD REMEDY 2 OZ OINT TP PRN (08:26)
[2017-02-03] MEDS: HYDROGEL DRESSING 90 GM TUBE TP SCH (08:27)
[2017-02-03] MEDS: Z GUARD REMEDY 2 OZ OINT TP SCH (08:27)
[2017-02-03] MEDS ORDERED: POTASSIUM CHLORIDE 20 MEQ TAB.PRT.SR PO ONE (10:30)
[2017-02-03 12:00] VITALS: BP 105/51
[2017-02-03 16:00] VITALS: BP 93/46
[2017-02-03] MEDS: POTASSIUM CHLORIDE 20 MEQ TAB.PRT.SR PO SCH ×2 (16:09→17:01)
[2017-02-03] MEDS: GLYTROL 1,000 ML BAG GT PRN (17:36)
[2017-02-03 20:00] VITALS: BP 102/50
[2017-02-03] MEDS: ZOLPIDEM TARTRATE 5 MG TABLET PO PRN (20:53)
[2017-02-04] VITALS (7 sets, daily range): BP systolic 91–127; BP diastolic 46–79
[2017-02-04] MEDS: IPRATROPIUM NEB FS 0.5 MG/2.5 ML AMPUL.NEB INH SCH ×4 (01:26→20:16)
[2017-02-04] MEDS: ALBUTEROL FS 2.5 MG/3 ML VIAL.NEB NEB SCH ×4 (01:26→20:16)
[2017-02-04] MEDS: MEROPENEM 500 MG in IV NS 0.9% 50 ML IV SCH ×2 (06:31→17:55)
[2017-02-04 07:01] LABS: BASOPHILS % (AUTO) 0.5 % (0.0-2.0); DIFF TOTAL % 100 %; EOSINOPHILS # (AUTO) 0.1 /CMM (0.0-0.7); EOSINOPHILS % (AUTO) 0.8 % (0.0-6.0); HEMATOCRIT 29 % (33-45); HEMOGLOBIN 9.7 g/dL (11.5-14.8); LYMPHOCYTES # (AUTO) 0.5 /CMM (0.8-4.8); LYMPHOCYTES % (AUTO) 6.7 % (20.0-44.0); MEAN CORPUSCULAR HEMOGLOBIN 29 PG (26.0-33.0); MEAN CORPUSCULAR HGB CONC 34 g/dl (31.0-36.0); MEAN CORPUSCULAR VOLUME 86 fL (82-100); MONOCYTES # (AUTO) 0.6 /CMM (0.1-1.30); MONOCYTES % (AUTO) 7.9 % (2.0-12.0); NEUTROPHILS # (AUTO) 6.7 /CMM (1.8-8.9); NEUTROPHILS % (AUTO) 84.1 % (43.0-81.0); PLATELET COUNT (AUTO) 289 /CMM (150-450); RED BLOOD CELL COUNT(AUTO) 3.34 MIL/uL (4.0-5.2); WHITE BLOOD COUNT (AUTO) 7.9 K/uL (4.3-11.0)
[2017-02-04 07:23] LABS: ALBUMIN 1.8 g/dL (3.4-5.0); BILIRUBIN,TOTAL 0.4 mg/dL (0.2-1.0); CALCIUM, SERUM 9.3 mg/dL (8.5-10.1); CREATININE 1.1 mg/dL (0.6-1.3); PHOSPHORUS 4.1 mg/dL (2.5-4.9); TOTAL PROTEIN, SERUM 5.9 g/dL (6.4-8.2)
[2017-02-04] MEDS: ACETYLCYSTEINE 10% SOLN 400 MG/4 ML VIAL NEB SCH ×2 (07:38→15:33)
[2017-02-04] MEDS: ASPIRIN 81 MG TAB.CHEW GT SCH (08:35)
[2017-02-04] MEDS: MULTIVITAMINS W-MINERALS 1 TAB TABLET GT SCH (08:36)
[2017-02-04] MEDS: DILTIAZEM HCL 30 MG TABLET GT SCH ×2 (08:36→16:58)
[2017-02-04] MEDS: BETHANECHOL CHLORIDE (25 MG) 25 MG TABLET GT SCH ×3 (08:36→16:58)
[2017-02-04] MEDS: SIMETHICONE 80 MG TAB.CHEW GT SCH ×4 (08:36→21:07)
[2017-02-04] MEDS: CYANOCOBALAMIN 1,000 MCG/ML VIAL IM SCH (08:36)
[2017-02-04] MEDS: Z GUARD REMEDY 2 OZ OINT TP SCH (08:37)
[2017-02-04] MEDS: LORAZEPAM 1 MG TABLET GT PRN (08:37)
[2017-02-04] MEDS: HYDROGEL DRESSING 90 GM TUBE TP SCH (08:37)
[2017-02-04] MEDS: GLYTROL 1,000 ML BAG GT PRN (18:03)
[2017-02-04] MEDS: ZOLPIDEM TARTRATE 5 MG TABLET PO PRN (21:07)
[2017-02-05] VITALS (7 sets, daily range): BP systolic 91–138; BP diastolic 51–69
[2017-02-05] MEDS: ACETYLCYSTEINE 10% SOLN 400 MG/4 ML VIAL NEB SCH ×4 (00:04→23:26)
[2017-02-05] MEDS: IPRATROPIUM NEB FS 0.5 MG/2.5 ML AMPUL.NEB INH SCH ×4 (01:48→19:36)
[2017-02-05] MEDS: ALBUTEROL FS 2.5 MG/3 ML VIAL.NEB NEB SCH ×4 (01:48→19:35)
[2017-02-05] MEDS: MEROPENEM 500 MG in IV NS 0.9% 50 ML IV SCH ×2 (05:53→17:30)
[2017-02-05] MEDS: BETHANECHOL CHLORIDE (25 MG) 25 MG TABLET GT SCH ×3 (08:12→17:27)
[2017-02-05] MEDS: CYANOCOBALAMIN 1,000 MCG/ML VIAL IM SCH (08:12)
[2017-02-05] MEDS: SIMETHICONE 80 MG TAB.CHEW GT SCH ×4 (08:12→20:36)
[2017-02-05] MEDS: ASPIRIN 81 MG TAB.CHEW GT SCH (08:12)
[2017-02-05] MEDS: MULTIVITAMINS W-MINERALS 1 TAB TABLET GT SCH (08:12)
[2017-02-05] MEDS: DILTIAZEM HCL 30 MG TABLET GT SCH ×3 (08:24→17:40)
[2017-02-05] MEDS: HYDROGEL DRESSING 90 GM TUBE TP SCH (09:11)
[2017-02-05] MEDS: Z GUARD REMEDY 2 OZ OINT TP PRN ×3 (09:11→09:13)
[2017-02-05] MEDS: Z GUARD REMEDY 2 OZ OINT TP SCH (09:14)
[2017-02-05] MEDS: GLYTROL 1,000 ML BAG GT PRN (20:36)
[2017-02-05] MEDS: ZOLPIDEM TARTRATE 5 MG TABLET PO PRN (21:14)
[2017-02-05] MEDS: LORAZEPAM 1 MG TABLET GT PRN (23:27)
[2017-02-06] VITALS (9 sets, daily range): BP systolic 91–130; BP diastolic 47–78
[2017-02-06] MEDS: IPRATROPIUM NEB FS 0.5 MG/2.5 ML AMPUL.NEB INH SCH ×4 (01:22→20:55)
[2017-02-06] MEDS: ALBUTEROL FS 2.5 MG/3 ML VIAL.NEB NEB SCH ×4 (01:23→20:55)
[2017-02-06] MEDS: MEROPENEM 500 MG in IV NS 0.9% 50 ML IV SCH ×2 (05:03→17:10)
[2017-02-06 06:58] LABS: BASOPHILS # (AUTO) 0.1 /CMM (0.0-0.2); BASOPHILS % (AUTO) 0.7 % (0.0-2.0); DIFF TOTAL % 100 %; HEMATOCRIT 30 % (33-45); LYMPHOCYTES % (AUTO) 10.1 % (20.0-44.0); MEAN CORPUSCULAR HEMOGLOBIN 29 PG (26.0-33.0); MEAN CORPUSCULAR HGB CONC 34 g/dl (31.0-36.0); MEAN CORPUSCULAR VOLUME 87 fL (82-100); MONOCYTES # (AUTO) 0.7 /CMM (0.1-1.30); MONOCYTES % (AUTO) 6.8 % (2.0-12.0); NEUTROPHILS # (AUTO) 8.4 /CMM (1.8-8.9); NEUTROPHILS % (AUTO) 82.4 % (43.0-81.0); PLATELET COUNT (AUTO) 344 /CMM (150-450); RED BLOOD CELL COUNT(AUTO) 3.45 MIL/uL (4.0-5.2); WHITE BLOOD COUNT (AUTO) 10.2 K/uL (4.3-11.0)
[2017-02-06 07:13] LABS: BILIRUBIN,TOTAL 0.4 mg/dL (0.2-1.0); CALCIUM, SERUM 9.4 mg/dL (8.5-10.1); PHOSPHORUS 4.2 mg/dL (2.5-4.9)
[2017-02-06] MEDS: ACETYLCYSTEINE 10% SOLN 400 MG/4 ML VIAL NEB SCH ×3 (07:50→23:58)
[2017-02-06] MEDS: ASPIRIN 81 MG TAB.CHEW GT SCH (09:19)
[2017-02-06] MEDS: MULTIVITAMINS W-MINERALS 1 TAB TABLET GT SCH (09:19)
[2017-02-06] MEDS: CYANOCOBALAMIN 1,000 MCG/ML VIAL IM SCH (09:20)
[2017-02-06] MEDS: DILTIAZEM HCL 30 MG TABLET GT SCH ×2 (09:21→17:10)
[2017-02-06] MEDS: HYDROGEL DRESSING 90 GM TUBE TP SCH (09:21)
[2017-02-06] MEDS: Z GUARD REMEDY 2 OZ OINT TP SCH (09:21)
[2017-02-06] MEDS: BETHANECHOL CHLORIDE (25 MG) 25 MG TABLET GT SCH ×3 (09:23→17:10)
[2017-02-06] MEDS: SIMETHICONE 80 MG TAB.CHEW GT SCH ×4 (09:23→21:17)
[2017-02-06] MEDS: LORAZEPAM 1 MG TABLET GT PRN ×2 (14:20→21:14)
[2017-02-06] MEDS: ZOLPIDEM TARTRATE 5 MG TABLET PO PRN (21:48)
[2017-02-07] VITALS: BP 101/57
[2017-02-07] MEDS: ALBUTEROL FS 2.5 MG/3 ML VIAL.NEB NEB SCH ×4 (02:04→19:27)
[2017-02-07] MEDS: IPRATROPIUM NEB FS 0.5 MG/2.5 ML AMPUL.NEB INH SCH ×4 (02:04→19:27)
[2017-02-07 04:00] VITALS: BP 91/56
[2017-02-07] MEDS: MEROPENEM 500 MG in IV NS 0.9% 50 ML IV SCH ×2 (05:26→17:27)
[2017-02-07] MEDS: ACETYLCYSTEINE 10% SOLN 400 MG/4 ML VIAL NEB SCH ×3 (07:18→23:47)
[2017-02-07 08:00] VITALS: BP 99/65
[2017-02-07] MEDS: MULTIVITAMINS W-MINERALS 1 TAB TABLET GT SCH (08:39)
[2017-02-07] MEDS: BETHANECHOL CHLORIDE (25 MG) 25 MG TABLET GT SCH ×3 (08:39→17:27)
[2017-02-07] MEDS: CYANOCOBALAMIN 1,000 MCG/ML VIAL IM SCH (08:39)
[2017-02-07] MEDS: DILTIAZEM HCL 30 MG TABLET GT SCH ×2 (08:40→17:29)
[2017-02-07] MEDS: Z GUARD REMEDY 2 OZ OINT TP SCH (08:41)
[2017-02-07] MEDS: HYDROGEL DRESSING 90 GM TUBE TP SCH (08:41)
[2017-02-07] MEDS: SIMETHICONE 80 MG TAB.CHEW GT SCH ×4 (08:45→20:51)
[2017-02-07] MEDS: ASPIRIN 81 MG TAB.CHEW GT SCH (08:45)
[2017-02-07] MEDS: FUROSEMIDE 20 MG/2 ML VIAL IV SCH (10:50)
[2017-02-07 12:00] VITALS: BP 92/44
[2017-02-07 16:00] VITALS: BP 94/57
[2017-02-07] MEDS ORDERED: IV NS 0.9% 250 ML IV ONE (16:54)
[2017-02-07] MEDS ORDERED: IV SET PRIMARY PUMP SET 1 EA INFUS.SET MC ONE (16:55)
[2017-02-07 20:00] VITALS: BP 110/55
[2017-02-07] MEDS: ZOLPIDEM TARTRATE 5 MG TABLET PO PRN (20:51)
[2017-02-07] MEDS: TRAMADOL HCL 50 MG TABLET GT PRN (22:23)
[2017-02-08] VITALS: BP 97/48
[2017-02-08] MEDS: IPRATROPIUM NEB FS 0.5 MG/2.5 ML AMPUL.NEB INH SCH ×3 (01:12→13:23)
[2017-02-08] MEDS: ALBUTEROL FS 2.5 MG/3 ML VIAL.NEB NEB SCH ×3 (01:12→13:23)
[2017-02-08] MEDS: GLYTROL 1,000 ML BAG GT PRN (03:44)
[2017-02-08 04:00] VITALS: BP 110/59
[2017-02-08] MEDS: MEROPENEM 500 MG in IV NS 0.9% 50 ML IV SCH (05:16)
[2017-02-08 07:09] LABS: BASOPHILS # (AUTO) 0.1 /CMM (0.0-0.2); BASOPHILS % (AUTO) 0.6 % (0.0-2.0); DIFF TOTAL % 100 %; EOSINOPHILS # (AUTO) 0.1 /CMM (0.0-0.7); EOSINOPHILS % (AUTO) 1.4 % (0.0-6.0); HEMATOCRIT 30 % (33-45); HEMOGLOBIN 9.9 g/dL (11.5-14.8); LYMPHOCYTES # (AUTO) 0.8 /CMM (0.8-4.8); LYMPHOCYTES % (AUTO) 8.3 % (20.0-44.0); MEAN CORPUSCULAR HEMOGLOBIN 29 PG (26.0-33.0); MEAN CORPUSCULAR HGB CONC 34 g/dl (31.0-36.0); MEAN CORPUSCULAR VOLUME 87 fL (82-100); MONOCYTES # (AUTO) 0.6 /CMM (0.1-1.30); MONOCYTES % (AUTO) 6.7 % (2.0-12.0); NEUTROPHILS # (AUTO) 7.7 /CMM (1.8-8.9); PLATELET COUNT (AUTO) 303 /CMM (150-450); RED BLOOD CELL COUNT(AUTO) 3.38 MIL/uL (4.0-5.2); WHITE BLOOD COUNT (AUTO) 9.3 K/uL (4.3-11.0)
[2017-02-08 07:34] LABS: ALBUMIN 1.9 g/dL (3.4-5.0); BILIRUBIN,TOTAL 0.4 mg/dL (0.2-1.0); CALCIUM, SERUM 9.3 mg/dL (8.5-10.1); CREATININE 0.8 mg/dL (0.6-1.3); PHOSPHORUS 4.1 mg/dL (2.5-4.9); POTASSIUM 4.1 mmol/L (3.5-5.1); TOTAL PROTEIN, SERUM 5.9 g/dL (6.4-8.2)
[2017-02-08 08:00] VITALS: BP_SYST 110; BP_SYST 88; BP_DIAS 50; BP_DIAS 70
[2017-02-08] MEDS: ACETYLCYSTEINE 10% SOLN 400 MG/4 ML VIAL NEB SCH (08:01)
[2017-02-08] MEDS: Z GUARD REMEDY 2 OZ OINT TP SCH (08:46)
[2017-02-08] MEDS: HYDROGEL DRESSING 90 GM TUBE TP SCH (08:46)
[2017-02-08] MEDS: FUROSEMIDE 20 MG/2 ML VIAL IV SCH (08:46)
[2017-02-08] MEDS: CYANOCOBALAMIN 1,000 MCG/ML VIAL IM SCH (08:46)
[2017-02-08] MEDS: MULTIVITAMINS W-MINERALS 1 TAB TABLET GT SCH (08:47)
[2017-02-08] MEDS: BETHANECHOL CHLORIDE (25 MG) 25 MG TABLET GT SCH ×2 (08:47→13:27)
[2017-02-08] MEDS: ASPIRIN 81 MG TAB.CHEW GT SCH (08:47)
[2017-02-08] MEDS: SIMETHICONE 80 MG TAB.CHEW GT SCH ×2 (08:50→13:27)
[2017-02-08] MEDS: LORAZEPAM 1 MG TABLET GT PRN ×2 (08:59→15:27)
[2017-02-08] MEDS: DILTIAZEM HCL 30 MG TABLET GT SCH (09:00)
[2017-02-08] MEDS ORDERED: ALBUT2 NEB (09:22)
[2017-02-08] MEDS ORDERED: HYDR-3326 GT (09:22)
[2017-02-08] MEDS ORDERED: Zolpidem Tartrate PO (09:22)
[2017-02-08] MEDS ORDERED: DILT30TA14 GT (09:22)
[2017-02-08] MEDS ORDERED: Lorazepam GT (09:22)
[2017-02-08] MEDS ORDERED: TRAM50TA2 GT (09:22)
[2017-02-08] MEDS ORDERED: Gel Dressing TP ×2 (09:22)
[2017-02-08] MEDS ORDERED: MULT-479 GT (09:22)
[2017-02-08] MEDS ORDERED: ALLA266C2 TP (09:22)
[2017-02-08 12:00] VITALS: BP 98/42
== END 2017-02-08 16:13 | DRG 870 ==
LOC: ER 16:07 → TELE-TD 18:13 → TELE1 01-30 16:30
PROVIDERS: ADMIT Internal Medicine Nephrology; ATTEND Internal Medicine Nephrology
PROC: 5A1955Z Respiratory Ventilation, Greater than 96 Consecutive Hours (ICD-10-PCS; principal; 2017-01-29)
DX: A41.9 Sepsis, unspecified organism (principal); I21.4 Non-ST elevation (NSTEMI) myocardial infarction; N17.0 Acute kidney failure with tubular necrosis; L89.153 Pressure ulcer of sacral region, stage 3; L89.113 Pressure ulcer of right upper back, stage 3; N39.0 Urinary tract infection, site not specified; J96.11 Chronic respiratory failure with hypoxia; Z99.11 Dependence on respirator [ventilator] status; J90 Pleural effusion, not elsewhere classified; E87.3 Alkalosis; R65.20 Severe sepsis without septic shock; I48.91 Unspecified atrial fibrillation; E87.6 Hypokalemia; Z87.891 Personal history of nicotine dependence; Z93.1 Gastrostomy status; B96.20 Unspecified Escherichia coli [E. coli] as the cause of diseases classified elsewhere; Z16.12 Extended spectrum beta lactamase (ESBL) resistance; I25.10 Atherosclerotic heart disease of native coronary artery without angina pectoris; I12.9 Hypertensive chronic kidney disease with stage 1 through stage 4 chronic kidney disease, or unspecified chronic kidney disease; B96.89 Other specified bacterial agents as the cause of diseases classified elsewhere; Z85.118 Personal history of other malignant neoplasm of bronchus and lung; I45.4 Nonspecific intraventricular block; E88.09 Other disorders of plasma-protein metabolism, not elsewhere classified; L85.3 Xerosis cutis; L89.621 Pressure ulcer of left heel, stage 1; L89.611 Pressure ulcer of right heel, stage 1; J44.9 Chronic obstructive pulmonary disease, unspecified
CPT/HCPCS: 31720; 36415; 36600; 71010-TC; 80048-TC; 80053-TC; 80076-TC; 81000-TC; 82803-TC; 83605-TC; 83735-TC; 83880; 84100-TC; 84484-TC; 85025-TC; 85730-TC; 87040-TC; 87081-TC; 87086-TC; 87186-TC; 94002-TC; 94003-TC; A4216; A4606; A6248; A6253; A6403; J1940; J2185; J2543; J3420; J3475; J3480; J7040; J7050; J7060; Q0162; Z7610

== ENCOUNTER 2017-02-24 15:20 | Inpatient (IN) | payer MEDICARE ==
[~2017-02-24] VITALS: Ht 165.1 cm; Wt 72.6 kg
[~2017-02-24 15:20] MED LIST changes: -ACET1OOV6 NEB; -ACET325T53 PO; +ACET650S26 GT; +ALBU2.5V38 INH; +ALLA266C2 TP; +ASPI81TA2 GT; -ASPI81TA2 PO; +ATOR80TA GT; -ATOR80TA PO; +BETH25TA10 GT; +BUME1TAB16 GT; -CYAN10006 IM; -Docusate Sodium PO; -ENOX30DI SQ; +Gel Dressing TP; +HYDR-3326 GT; -HYDR-3326 PO; +IPRA0.2S9 INH; -Ipratropium Bromide NEB; +LACT-96 GT; +LANS30CA10 GT; -LORA-258 PO; +Lorazepam GT; +MAGN400O6 GT; +MULT-479 GT; +NA P133E RC; -NEOM15OI3 TP; -Nutritional Supplement/Fiber GT; +ONDA4TAB5 GT; +POLY119P2 GT; +SIME80TA15 GT; +TRAM50TA2 GT; +[UNRECOGNIZED DRUG - CODE] IM
--- NOTE | 2017-02-24 15:28 | NUR ---
PT BIBRA FROM SNF TO ER BED 06. SEND BY PMD CONCERNED OF POSSIBLE WORSENING PNEUMONIA. PT IS VENT DEPENDENT W/ SETTINGS, AC 12 TV 500 FI02 40% PEEP 5. PLACED ON MONITOR. PT IS AFEBRILE LATHE SETUP OPERATOR. CALLE CATH IN PLACE. VSS. AWAITING MD CASTILLO.
[2017-02-24 15:38] VITALS: BP 95/52
--- NOTE | 2017-02-24 15:38 | NUR ---
PT REC'D ON TRACH SHILEY 6 AND [facility] VENT SETTINGS NOTED BY TRANSPORT RT. PT IS AWAKE AND ALERT. VENT ALARMS ARE AUDIBLE AND AMBU BAG IS BEDSIDE. RECRUITER MANAGER CUFF PRESSURE NOTED. VENT IS PLUGGED INTO RED OUTLET, NO RESP DISTRESS NOTED WILL CONTINUE TO MONITOR Addendum: 02/24/17 at 1606 by CODY HOLLAND RT Amended: Links added.
--- NOTE | 2017-02-24 15:40 | NUR ---
DR NG AT BEDSIDE FOR EVAL.
--- NOTE | 2017-02-24 15:47 | NUR ---
IV LINE STARTED BLOOD DRAWN AND SENT TO LAB.
[2017-02-24 15:57] LABS: BASOPHILS # (AUTO) 0.1 /CMM (0.0-0.2); BASOPHILS % (AUTO) 0.7 % (0.0-2.0); EOSINOPHILS # (AUTO) 0.1 /CMM (0.0-0.7); EOSINOPHILS % (AUTO) 0.7 % (0.0-6.0); HEMATOCRIT 30 % (33-45); HEMOGLOBIN 10.2 g/dL (11.5-14.8); LYMPHOCYTES # (AUTO) 0.7 /CMM (0.8-4.8); LYMPHOCYTES % (AUTO) 4.2 % (20.0-44.0); MEAN CORPUSCULAR HEMOGLOBIN 30 PG (26.0-33.0); MEAN CORPUSCULAR HGB CONC 34 g/dl (31.0-36.0); MEAN CORPUSCULAR VOLUME 87 fL (82-100); MONOCYTES % (AUTO) 5.8 % (2.0-12.0); NEUTROPHILS # (AUTO) 14.7 /CMM (1.8-8.9); NEUTROPHILS % (AUTO) 88.6 % (43.0-81.0); PLATELET COUNT (AUTO) 276 /CMM (150-450); RED BLOOD CELL COUNT(AUTO) 3.42 MIL/uL (4.0-5.2); WHITE BLOOD COUNT (AUTO) 16.6 K/uL (4.3-11.0)
[2017-02-24 16:11] LABS: INR 1.09 (0.87-1.13); PROTHROMBIN TIME 11.4 SECS (9.5-12.7)
[2017-02-24] MEDS ORDERED: LACT-96 GT (16:16)
[2017-02-24] MEDS ORDERED: IPRA0.2S9 IH (16:16)
[2017-02-24] MEDS ORDERED: ATOR40TA GT (16:16)
[2017-02-24] MEDS ORDERED: LORA1TAB GT (16:17)
[2017-02-24] MEDS ORDERED: ESCI10TA GT (16:17)
[2017-02-24] MEDS ORDERED: ALBU2.5V13 IH (16:17)
[2017-02-24] MEDS ORDERED: ZOLP5TAB2 GT (16:17)
[2017-02-24] MEDS ORDERED: ACID1TAB12 GT (16:17)
[2017-02-24] MEDS ORDERED: SPIR25TA GT (16:17)
[2017-02-24] MEDS ORDERED: HYDR-3326 GT (16:17)
[2017-02-24] MEDS ORDERED: BUME0.2513 IV (16:17)
[2017-02-24] MEDS ORDERED: DILT60CA2 GT (16:17)
[2017-02-24] MEDS ORDERED: MULT1TAB11 GT (16:17)
[2017-02-24] MEDS ORDERED: BISA10SU8 RC (16:17)
--- NOTE | 2017-02-24 16:22 | NUR ---
RADIOLOGY AT BEDSIDE FOR CHEST XRAY.
[2017-02-24 16:31] LABS: TROPONIN I 0.324 ng/mL (0.00-0.056)
[2017-02-24 16:33] LABS: CALCIUM, SERUM 8.8 mg/dL (8.5-10.1); CREATININE 1.3 mg/dL (0.6-1.3); POTASSIUM 3.6 mmol/L (3.5-5.1)
[2017-02-24 16:46] LABS: BILIRUBIN,DIRECT 0.1 mg/dL (0.0-0.2); BILIRUBIN,TOTAL 0.4 mg/dL (0.2-1.0); TOTAL PROTEIN, SERUM 6.1 g/dL (6.4-8.2)
--- NOTE | 2017-02-24 17:22 | NUR ---
DR NG ON THE PHONE WITH DR. BASILIA MCCABE REGARDING PATIENT ADMISSION.
[2017-02-24] MEDS ORDERED: MEROPENEM 1 G in IV NS 0.9% 100 ML IV ONE (17:30)
[2017-02-24] MEDS ORDERED: ALBUMIN 5% 12.5 GM in PREMIX 1 EA IV ONE ×2 (17:30→21:00)
[2017-02-24] MEDS ORDERED: IV SET PRIMARY PUMP SET 1 EA INFUS.SET MC ONE ×2 (17:39→20:35)
--- NOTE | 2017-02-24 18:00 | NUR ---
ALBUMIN TO BE GIVEN UPON TRANSFER ON THE UNIT
--- NOTE | 2017-02-24 18:35 | NUR ---
RN NOTES RECEIVED PT ON BED, FROM ER, ON [facility] VENT WITH SETTINGS ORDERED, PT ON FIELD ARTILLERY CANNONEER AFIB 105, NO SOB, NO DISTRESS, DENIES PAIN, EDEMA IN ARMS, HANDS, +2 AND BOTH LEGS AND FEET +4 NOTED, ABDOMINAL AND BREAST EDEMA TOO, G TUBE IN PLACE, INTACT , CLAMPED, WANTS TO BE CLEANED, PICTURES TAKEN, MULTIPLE WOUNDS, DIARRHEA GREEN COLOR NOTED, F/C IN PLACE, IV INFUSING MERREM ABX, IV IN R HAND 20 G, INTACT, DR MCCABE PAGED FOR NEW ORDERS, NO RESPONSE YET. VS STABLE. WILL ENDORSE TO MILLINER HELPER NURSE.
--- NOTE | 2017-02-24 19:55 | NUR ---
RN DF PT WITH NO ADMISSION ORDERS. DR MARTINEZ PAGED X2 WITH NO RESPONSE SINCE 1899. 3RD PAGE PLACED TO CONTACT .AWAITING CALLBACK. Addendum: 02/24/17 at 2249 by BOB GARCIA RN MD DA SILVA RETURNED CALL ADMITTING ORDERS RECEIVED AND ORDERS TO CONTINUE HOME MEDS. AFTER 2099 I HAD TO OVERRIDE ORDERED MEDICATION(BARKER PEELER BUSY ON UNIT)NO CALL AT PHARMACY AFTER HOURS. PT TOLERATING CURRENT AC VENT SETTINGS. MEDICATED ORDERED. PT HAS CAREGIVER NATALIYA AT BEDSIDE. VSS.NAD NOTED.
[2017-02-24 20:00] VITALS: BP 106/58
[2017-02-24] MEDS ORDERED: BISACODYL SUPP (10 MG) 10 MG/SUPP.RECT SUPP.RECT RC PRN (20:30)
[2017-02-24] MEDS ORDERED: NA PHOS,M-B/NA PHOS,DI-BA 1 EA ENEMA RC PRN (20:30)
[2017-02-24] MEDS ORDERED: MAGNESIUM HYDROXIDE 30 ML UDC GT PRN (20:30)
[2017-02-24] MEDS ORDERED: FUROSEMIDE 20 MG/2 ML VIAL IV ONE (20:30)
[2017-02-24] MEDS: BUMETANIDE INJ 0.25 MG/ML VIAL IV SCH (20:35)
[2017-02-24] MEDS ORDERED: SIMETHICONE 80 MG TAB.CHEW ONE (20:35)
[2017-02-24] MEDS: SIMETHICONE 80 MG TAB.CHEW GT SCH (20:50)
[2017-02-24] MEDS ORDERED: ATORVASTATIN 40 MG TABLET ONE (21:01)
[2017-02-24] MEDS ORDERED: ESCITALOPRAM OXALATE (10 MG) 10 MG TABLET ONE (21:02)
[2017-02-24] MEDS ORDERED: ZOLPIDEM TARTRATE 5 MG TABLET ONE (21:04)
[2017-02-24] MEDS: ZOLPIDEM TARTRATE 5 MG TABLET GT PRN (21:08)
[2017-02-24] MEDS: Z GUARD REMEDY 2 OZ OINT TP SCH (21:09)
[2017-02-24] MEDS: ATORVASTATIN 40 MG TABLET GT SCH (21:09)
[2017-02-24] MEDS: ESCITALOPRAM OXALATE (10 MG) 10 MG TABLET GT SCH (21:09)
[2017-02-24] MEDS ORDERED: ONDANSETRON 4 MG TAB.RAPDIS GT PRN (21:30)
[2017-02-24] MEDS: DILTIAZEM HCL 30 MG TABLET GT SCH (22:29)
[2017-02-24] MEDS: FIBERSOURCE HN 1,000 ML BOTTLE GT PRN (22:30)
[2017-02-25] VITALS (8 sets, daily range): BP systolic 87–103; BP diastolic 45–55
--- NOTE | 2017-02-25 00:05 | NUR ---
RN DF PT BLOOD PRESSURE OF 87/50 I TOOK BP MANUALLY AND IT IS 93/55. PT ASYMPTOMATIC A/OX4 CONVERSES, RESPONSIVE. PT REPORTS HER BASELINE BP SBP IN THE MID 80,S LOW 90,S. NO DISTRESS NOTED. TOLERATING FEEDING. CAREGIVER MS AN AT BEDSIDE WITH PT.
[2017-02-25] MEDS: ALBUTEROL FS 2.5 MG/0.5 ML VIAL.NEB NEB SCH ×4 (00:43→20:05)
[2017-02-25] MEDS: IPRATROPIUM NEB FS 0.5 MG/2.5 ML AMPUL.NEB IH SCH ×4 (00:43→20:05)
[2017-02-25] MEDS: PANTOPRAZOLE 40 MG/PACK PACK GT SCH (05:32)
--- NOTE | 2017-02-25 06:35 | NUR ---
RACHELLE DF MRSA SWAB DONE AND SENT TO LAB
[2017-02-25 06:37] LABS: BASOPHILS % (AUTO) 0.2 % (0.0-2.0); HEMATOCRIT 28 % (33-45); HEMOGLOBIN 9.5 g/dL (11.5-14.8); LYMPHOCYTES # (AUTO) 0.5 /CMM (0.8-4.8); LYMPHOCYTES % (AUTO) 3.5 % (20.0-44.0); MEAN CORPUSCULAR HEMOGLOBIN 30 PG (26.0-33.0); MEAN CORPUSCULAR HGB CONC 34 g/dl (31.0-36.0); MEAN CORPUSCULAR VOLUME 89 fL (82-100); MONOCYTES # (AUTO) 0.8 /CMM (0.1-1.30); MONOCYTES % (AUTO) 5.5 % (2.0-12.0); NEUTROPHILS # (AUTO) 12.9 /CMM (1.8-8.9); NEUTROPHILS % (AUTO) 90.8 % (43.0-81.0); PLATELET COUNT (AUTO) 239 /CMM (150-450); RDW COEFFICIENT OF VARIATION 20.5 (11.5-15.0); RED BLOOD CELL COUNT(AUTO) 3.13 MIL/uL (4.0-5.2); WHITE BLOOD COUNT (AUTO) 14.2 K/uL (4.3-11.0)
[2017-02-25 07:14] LABS: CALCIUM, SERUM 8.8 mg/dL (8.5-10.1); CREATININE 1.3 mg/dL (0.6-1.3); MAGNESIUM 1.9 mg/dL (1.8-2.4); POTASSIUM 3.7 mmol/L (3.5-5.1)
--- NOTE | 2017-02-25 07:25 | NUR ---
RN INITIAL NOTES: Received patient on bed during rounds, Alert and orientedx3-4, able to mouth words and able to make needs known, needs anticipated and attended. CG at bedside. With right hand IV Plug G20 flushed with NS and patent SL. With Vent and trach setting are the following AC 12 TV 500 FIO2 40% Peep 5 saturating well at 100%. NPO maintained. With Gtube in placed, checked for patency and no residual noted, On Fibersource at 45cc/hr tolerating well. HOB elevated, aspiration precaution observed. NO SOB, No LOC, respirations are even and unlabored, no acute distress noted. Kept clean and dry. Provided safety and comfort measures. Bed low and locked position, fall precaution observed. Will turn and reposition, offload heels as per protocol. Suction secretions PRN. For Wound consult on Monday. To continue to monitor accordingly.
[2017-02-25] MEDS: MULTIVIT, IRON, MIN NO. 8, FA 1 TAB TABLET GT SCH (08:42)
[2017-02-25] MEDS: BETHANECHOL CHLORIDE (25 MG) 25 MG TABLET GT SCH ×3 (08:42→16:45)
[2017-02-25] MEDS: ACIDOPHILUS/BULGARICUS 1 EACH TAB.CHEW GT SCH ×2 (08:42→16:45)
[2017-02-25] MEDS: ASPIRIN 81 MG TAB.CHEW GT SCH (08:42)
[2017-02-25] MEDS: BUMETANIDE INJ 0.25 MG/ML VIAL IV SCH ×2 (08:43→21:22)
[2017-02-25] MEDS: SIMETHICONE 80 MG TAB.CHEW GT SCH ×4 (08:45→21:22)
[2017-02-25] MEDS: Z GUARD REMEDY 2 OZ OINT TP SCH (08:45)
[2017-02-25] MEDS ORDERED: POLYETHYLENE GLYCOL 3350 17 GM POWD.PACK GT PRN (09:00)
[2017-02-25] MEDS: DILTIAZEM HCL 30 MG TABLET GT SCH (09:00)
[2017-02-25] MEDS ORDERED: HYDROGEL DRESSING 90 GM TUBE TP SCH (09:00)
[2017-02-25] MEDS ORDERED: HYDROGEL DRESSING 90 GM TUBE TP PRN (09:00)
--- NOTE | 2017-02-25 10:19 | NUR ---
RN NOTES: Cardizem not given due to bp low checked at tgis time 81/45mmhg HR 120bpm, on monitoring, no signs and symptoms of distress noted.
--- NOTE | 2017-02-25 10:55 | NUR ---
RN NOTES: Seen and examined by Dr. Hall with orders noted and carried out, noted BP on lowish side, noted by Diltiazem not given.
[2017-02-25] MEDS: SPIRONOLACTONE 25 MG TABLET GT SCH (11:39)
[2017-02-25] MEDS: TRAMADOL HCL 50 MG TABLET GT PRN (11:40)
--- NOTE | 2017-02-25 12:47 | NUR ---
RN NOTES: Seen and examined by Dr. Dodd with orders noted and carried out. CXR result noted today with order to do JANETTE Guided Thoracentesis, consent will be signed by Chris which is the DPOA on monday02/26/17, consent prepared in the chart. Daughter updated at bedside.
--- NOTE | 2017-02-25 13:14 | NUR ---
RT DAUGHTER AND PATIENT REFUSED ABG. PATIENT IN NO DISTRESS OR SOB ON SAME VENT SETTINGS THAT SHE HAS ALWAYS BEEN ON. SPO2 100% ON 40%
[2017-02-25] MEDS: COD LIVER OIL/ZINC OXIDE 120 GM TUBE TP SCH (14:21)
--- NOTE | 2017-02-25 16:30 | NUR ---
RN NOTES: Removed tape over LFA,noted skin tear, cleanse with NS, applied triple ATB ointment and cover with Mepilex. Wound photo taken. Patients daughter updated.
[2017-02-25] MEDS: NEOMY SULF/BACITRAC ZN/POLY 15 GM TUBE TP SCH (16:44)
[2017-02-25] MEDS: VITAMINS A AND D 56.7 GM TUBE TP PRN (16:44)
[2017-02-25] MEDS: NYSTATIN TOP POWDER 15 GM BOTTLE TP SCH (16:45)
--- NOTE | 2017-02-25 18:36 | NUR ---
Rn Notes: \Patient remain stable within shift. No signs and symptoms of distress noted. HOB elevated, aspiration precaution observed. Kept clean and dry, provided safety and comfort measures. Turned and repositioned, offload heels as per protocol. To endorsed to next shift for continuity of care.
--- NOTE | 2017-02-25 18:56 | NUR ---
RN NOTES: Urine c/s collected, lab noted for orange picker machine operator.
--- NOTE | 2017-02-25 20:42 | NUR ---
PT RECEIVED TRACH ON VENT ON NOTED SETTINGS NO RESP DISTRESS NOTED. PT TOLERATING VENT SETTING. BS CL DM. SX FOR SML AMT OF WHITE SECRETIONS. VENT ALARMS SET AND AUDIBLE. AMBU BAG AT [facility]. VENT PLUGGED INTO RED OUTLET. WILL CONTINUE TO MONITOR. Addendum: 02/25/17 at 2043 by LEVI JESSICA RT Amended: Links added.
[2017-02-25] MEDS: ESCITALOPRAM OXALATE (10 MG) 10 MG TABLET GT SCH (21:22)
[2017-02-25] MEDS: ATORVASTATIN 40 MG TABLET GT SCH (21:22)
[2017-02-25] MEDS: ZOLPIDEM TARTRATE 5 MG TABLET GT PRN (21:24)
[2017-02-26] VITALS: BP 99/49
[2017-02-26] MEDS: LORAZEPAM 1 MG TABLET GT PRN (00:23)
[2017-02-26] MEDS: ALBUTEROL FS 2.5 MG/0.5 ML VIAL.NEB NEB SCH ×5 (00:59→19:40)
[2017-02-26] MEDS: IPRATROPIUM NEB FS 0.5 MG/2.5 ML AMPUL.NEB IH SCH ×5 (00:59→19:40)
--- NOTE | 2017-02-26 01:45 | NUR ---
FIRER ELECTRIC LOCOMOTIVE - REC'D PT. TRACH TO VENT/PEGGED W/FIBERSOURCE INFUSING AT 45CC/HR. PT.IS A&O X 3, NODS HEAD TO QUESTIONS ASKED. PT. WAS ADM. AMBIEN 5MG/PEG AT 21:00 & ATIVAN ONE MG/PEG AT 00:20 FOR UNCONT. AFIB-AT PT'S REQUEST. PT. HAS BEEN IN UNCONT.AFIB W/BBB ALL DAY (ACCORDING TO LONG FORM & DAYSHIFT RN'S VERBAL REPORT). PT.IS ASYMPTOMATIC. DENIES C/P. PT. HAS CAREGIVER AT BS. CALLE CATH TO GRAVITY W/GOOD UOP. PT.IS RECEIVING IV/BUMEX ROUTINELY. P/C TO PRIMARY MD'S' GROUP AT 01:45 AM. MESSAGE LEFT W/SERVICE. NO RETURN CALL OF YET. PT. SHOWS NO DISTRESS/NO DISCOMFORT NOTED. RT AT BS. + EDEMA/GENERALIZED, SCATTERED ECCHYMOSES NOTED. RT.HAND PIV-DL IS PATENT TO FLUSH. ALL PULSES PALPABLE X 4 EXT. CONT. POC.
[2017-02-26] MEDS: FIBERSOURCE HN 1,000 ML BOTTLE GT PRN (03:22)
[2017-02-26 04:00] VITALS: BP 95/62
[2017-02-26] MEDS ORDERED: DIGOXIN INJ 0.5 MG/2 ML AMPUL ONE (04:13)
[2017-02-26] MEDS ORDERED: DIGOXIN INJ 0.5 MG/2 ML AMPUL IV ONE (04:30)
--- NOTE | 2017-02-26 05:30 | NUR ---
NUCLEAR EQUIPMENT DESIGN ENGINEER - DR. MCCABE PHONED BACK W/ORDERS. STATUS UPDATED GIVEN TO MD OVER PHONE. DIGOXIN 0.125MG IVP PUSH X ONE TIME ORDER ADM. PT'S HR DECREASED INTO THE 70'S. PT. ASYMPTOMATIC. DENIES ANY PAIN. NO CHANGES FROM PRIOR ASSESSMENT. CONT. POC.
[2017-02-26] MEDS: PANTOPRAZOLE 40 MG/PACK PACK GT SCH (05:34)
--- NOTE | 2017-02-26 07:52 | NUR ---
RN INITIAL NOTE PT RECEIVED IN BED. RESTING COMFORTABLY. DAUGHTER AT BEDSIDE. NO S/S OF PAIN OR DISCOMFORT. RESPIRATIONS ARE EVEN AND UNLABORED. PT HAS TRACH. GTUBE FEEDING FIBERSOURCE AT 45ML/HR. NO S/S OF RESPIRATORY DISTRESS OR SOB. CALLE CATHETER DRAINING WITH GRAVITY. SAFETY MEASURES IMPLEMENTED. BED IN LOCKED, LOW POSITION. CALL LIGHT WITHIN REACH. WILL CONTINUE TO MONITOR.
[2017-02-26 08:00] VITALS: BP 98/45
[2017-02-26] MEDS: ACIDOPHILUS/BULGARICUS 1 EACH TAB.CHEW GT SCH ×2 (08:33→17:51)
[2017-02-26] MEDS: MULTIVIT, IRON, MIN NO. 8, FA 1 TAB TABLET GT SCH (08:33)
[2017-02-26] MEDS: BETHANECHOL CHLORIDE (25 MG) 25 MG TABLET GT SCH ×3 (08:33→17:51)
[2017-02-26] MEDS: ASPIRIN 81 MG TAB.CHEW GT SCH (08:33)
[2017-02-26] MEDS: SPIRONOLACTONE 25 MG TABLET GT SCH (08:33)
[2017-02-26] MEDS: BUMETANIDE INJ 0.25 MG/ML VIAL IV SCH ×2 (08:33→21:11)
[2017-02-26] MEDS: COD LIVER OIL/ZINC OXIDE 120 GM TUBE TP SCH (08:34)
[2017-02-26] MEDS: Z GUARD REMEDY 2 OZ OINT TP SCH (08:34)
[2017-02-26] MEDS: NEOMY SULF/BACITRAC ZN/POLY 15 GM TUBE TP SCH (08:34)
[2017-02-26] MEDS: NYSTATIN TOP POWDER 15 GM BOTTLE TP SCH ×2 (08:34→17:51)
[2017-02-26] MEDS: SIMETHICONE 80 MG TAB.CHEW GT SCH ×4 (08:37→21:11)
[2017-02-26 09:36] LABS: ALBUMIN 1.9 g/dL (3.4-5.0); BILIRUBIN,TOTAL 0.3 mg/dL (0.2-1.0); CALCIUM, SERUM 8.5 mg/dL (8.5-10.1); CREATININE 1.3 mg/dL (0.6-1.3); PHOSPHORUS 4.2 mg/dL (2.5-4.9); POTASSIUM 4.3 mmol/L (3.5-5.1); TOTAL PROTEIN, SERUM 5.4 g/dL (6.4-8.2)
[2017-02-26 09:40] LABS: BASOPHILS % (AUTO) 0.1 % (0.0-2.0); EOSINOPHILS % (AUTO) 0.1 % (0.0-6.0); HEMATOCRIT 26 % (33-45); HEMOGLOBIN 8.6 g/dL (11.5-14.8); LYMPHOCYTES # (AUTO) 0.5 /CMM (0.8-4.8); MEAN CORPUSCULAR HEMOGLOBIN 30 PG (26.0-33.0); MEAN CORPUSCULAR HGB CONC 34 g/dl (31.0-36.0); MEAN CORPUSCULAR VOLUME 88 fL (82-100); MONOCYTES # (AUTO) 0.7 /CMM (0.1-1.30); MONOCYTES % (AUTO) 5.9 % (2.0-12.0); NEUTROPHILS # (AUTO) 10.8 /CMM (1.8-8.9); NEUTROPHILS % (AUTO) 89.9 % (43.0-81.0); PLATELET COUNT (AUTO) 194 /CMM (150-450); RDW COEFFICIENT OF VARIATION 20.4 (11.5-15.0); RED BLOOD CELL COUNT(AUTO) 2.91 MIL/uL (4.0-5.2)
[2017-02-26] MEDS: ACETAMINOPHEN 650 MG/20.3 ML UDC GT PRN (11:21)
[2017-02-26] MEDS: AMIODARONE HCL 200 MG TABLET PO SCH ×2 (11:32→17:52)
[2017-02-26 12:00] VITALS: BP 123/57
[2017-02-26 16:00] VITALS: BP_SYST 80; BP_SYST 84; BP_SYST 89; BP_DIAS 38; BP_DIAS 54
[2017-02-26] MEDS: MEROPENEM 500 MG in IV NS 0.9% 50 ML IV SCH (17:51)
--- NOTE | 2017-02-26 19:01 | NUR ---
RN CLOSING NOTE PT RESTING IN BED COMFORTABLY, ALL MD ORDERS CARRIED OUT. PT KEPT CLEAN AND DRY. IV SITE FLUSHED AND PATENT. REPORT WILL BE GIVEN TO PM RN FOR MONTRELL.
--- NOTE | 2017-02-26 19:30 | NUR ---
HIGH TENSION TESTER INITIAL NOTE RECEIVED PATIENT IN BED. RESTING COMFORTABLY. CAREGIVER AT BEDSIDE. NO S/S OF PAIN OR DISCOMFORT. RESPIRATIONS ARE EVEN AND UNLABORED. TRACH MIDLINE AND INTACT, ON MECHANICAL VENT AT PRESCRIBED SETTINGS, TOLERATING WELL. GTUBE FEEDING FIBERSOURCE AT 45ML/HR, NO GASTRIC RESIDUALS NOTED AT THIS TIME. IV SITE PATENT AND INTACT, FLUSHED WITH NS, FREE FROM ANY S/S OF INFILTRATION OR PHLEBITIS. CALLE CATHETER PATENT AND INTACT, DRAINING TO BAG BY GRAVITY, URINE DARK YELLOW TO MAGALYS IN COLOR. SAFETY MEASURES IMPLEMENTED. BED IN LOCKED, LOW POSITION. CALL LIGHT WITHIN REACH. WILL CONTINUE TO MONITOR.
--- NOTE | 2017-02-26 19:40 | NUR ---
[facility] WITH NOTED SETTINGS. VENT ALARM CHECKED AND AUDIBLE. VENT PLUGGED INTO RED OUTLET, TRACH SECURE IN AND IN PROPER POSITION. CUFF CHECKED INFORMATICA DEVELOPER. SXN SMALL AMOUNT OF THICK WHITE SECRETIONS. NO RESPIRATORY DISTRESS NOTED AT THIS TIME. AMBU BAG AT BEDSIDE. WILL CONTINUE TO MONITOR.
[2017-02-26 20:00] VITALS: BP 95/53
--- NOTE | 2017-02-26 20:00 | NUR ---
RN NOTES PATIENT NOTED WITH ORDER FOR COMPUTED TOMOGRAPHY GUIDED THORACENTESIS. ATTEMPTED TO OBTAIN CONSENT FOR THE PROCEDURE FROM THE PATIENT'S CAREGIVER WHO IS AT BEDSIDE. PER THE PATIENT'S CAREGIVER, THE PATIENT'S FAMILY MEMBERS WILL BE AT BEDSIDE TOMORROW MORNING AT 0730, AND WILL SIGN CONSENTS AT THAT TIME.
[2017-02-26] MEDS: ESCITALOPRAM OXALATE (10 MG) 10 MG TABLET GT SCH (21:10)
[2017-02-26] MEDS: ZOLPIDEM TARTRATE 5 MG TABLET GT PRN (21:11)
--- NOTE | 2017-02-26 21:54 | NUR ---
ABG WAS NOT DONE FROM AM SHIFT @ 1742. ABG DONE @ 1741 RACHELLE MAY NOTIFIED
[2017-02-26 22:03] LABS: ABG OXYGEN SATURATION 98.2 % (92.0-98.5); ABG PCO2 38.5 mmHg (35.0-45.0); ABG PH 7.515 (7.350-7.450); ABG PO2 164.5 mmHg (75.0-100.0); ABG TOTAL HEMOGLOBIN 10.2 G/dL (12.0-16.0); AaDO2 76.4 mmHg; COHb 0.3 % (0.5-1.5); MetHb 1.1 % (0.0-1.5); O2Hb 96.8 % (94.0-97.0); PEEP,BG 5 cm H2O; SITE, ABG Right Radial; VT, ABG 500 mL
[2017-02-27] VITALS: BP 99/61
[2017-02-27] MEDS: ALBUTEROL FS 2.5 MG/0.5 ML VIAL.NEB NEB SCH ×5 (01:30→19:56)
[2017-02-27] MEDS: IPRATROPIUM NEB FS 0.5 MG/2.5 ML AMPUL.NEB IH SCH ×4 (01:43→19:56)
[2017-02-27] MEDS: FIBERSOURCE HN 1,000 ML BOTTLE GT PRN (02:09)
[2017-02-27 04:00] VITALS: BP 96/35
[2017-02-27] MEDS: PANTOPRAZOLE 40 MG/PACK PACK GT SCH (05:19)
[2017-02-27] MEDS: MEROPENEM 500 MG in IV NS 0.9% 50 ML IV SCH ×2 (05:19→17:52)
[2017-02-27] MEDS ORDERED: SECONDARY IV SET 1 EA INFUS.SET MC ONE (05:27)
[2017-02-27] MEDS ORDERED: IV SET PRIMARY PUMP SET 1 EA INFUS.SET MC ONE (05:27)
[2017-02-27] MEDS ORDERED: IV NS 0.9% 250 ML IV ONE (05:27)
--- NOTE | 2017-02-27 06:18 | NUR ---
RN CLOSING NOTES PATIENT RESTING IN BED AT THIS TIME. NO SIGNIFICANT CHANGES OCCURRED THROUGHOUT SHIFT. PATIENT CONTINUES ON MECHANICAL VENT AT PRESCRIBED SETTINGS, TOLERATING WELL. CAREGIVER REMAINS AT BEDSIDE. PER THE PATIENT'S CAREGIVER, FAMILY MEMBERS WILL ARRIVE @ 0730, AND THEY WILL SIGN CONSENT FORMS FOR CT GUIDED THORACENTESIS. Addendum: 02/27/17 at 0620 by CANDE CHACON RN WILL ENDORSE THE PATIENT TO THE AM SHIFT NURSE FOR MONTRELL
[2017-02-27 06:47] LABS: BASOPHILS % (AUTO) 0.1 % (0.0-2.0); HEMATOCRIT 26 % (33-45); LYMPHOCYTES # (AUTO) 0.6 /CMM (0.8-4.8); LYMPHOCYTES % (AUTO) 4.2 % (20.0-44.0); MEAN CORPUSCULAR HEMOGLOBIN 30 PG (26.0-33.0); MEAN CORPUSCULAR HGB CONC 34 g/dl (31.0-36.0); MEAN CORPUSCULAR VOLUME 88 fL (82-100); MONOCYTES # (AUTO) 0.9 /CMM (0.1-1.30); NEUTROPHILS # (AUTO) 11.8 /CMM (1.8-8.9); NEUTROPHILS % (AUTO) 88.7 % (43.0-81.0); PLATELET COUNT (AUTO) 232 /CMM (150-450); RDW COEFFICIENT OF VARIATION 20.2 (11.5-15.0); RED BLOOD CELL COUNT(AUTO) 2.99 MIL/uL (4.0-5.2); WHITE BLOOD COUNT (AUTO) 13.3 K/uL (4.3-11.0)
[2017-02-27 07:13] LABS: BILIRUBIN,TOTAL 0.3 mg/dL (0.2-1.0); CALCIUM, SERUM 8.8 mg/dL (8.5-10.1); CREATININE 1.3 mg/dL (0.6-1.3); POTASSIUM 4.1 mmol/L (3.5-5.1); TOTAL PROTEIN, SERUM 5.7 g/dL (6.4-8.2)
--- NOTE | 2017-02-27 07:30 | NUR ---
RN OPEN NOTES FAMILY AT BEDSIDE. PT A/O X3 ABLE TO MOUTH WORDS AND EXPRESS NEEDS. VERBALIZES FEELING OF ANXIETY D/T ONCOMING PROCEDURE. LARRY F/U WITH A PRN DOSE OF ATIVAN. STABLE AT THIS TIME. LARRY CONTINUE TO MONITOR CARE.
[2017-02-27 08:00] VITALS: BP 99/52
[2017-02-27] MEDS: ACETAMINOPHEN 650 MG/20.3 ML UDC GT PRN (09:17)
[2017-02-27] MEDS: SIMETHICONE 80 MG TAB.CHEW GT SCH ×4 (09:18→21:29)
[2017-02-27] MEDS: SPIRONOLACTONE 25 MG TABLET GT SCH (09:18)
[2017-02-27] MEDS: ACIDOPHILUS/BULGARICUS 1 EACH TAB.CHEW GT SCH ×2 (09:18→18:08)
[2017-02-27] MEDS: LORAZEPAM 1 MG TABLET GT PRN (09:19)
[2017-02-27] MEDS: ASPIRIN 81 MG TAB.CHEW GT SCH (09:19)
[2017-02-27] MEDS: MULTIVIT, IRON, MIN NO. 8, FA 1 TAB TABLET GT SCH (09:19)
[2017-02-27] MEDS: BETHANECHOL CHLORIDE (25 MG) 25 MG TABLET GT SCH ×3 (09:22→17:44)
[2017-02-27] MEDS: AMIODARONE HCL 200 MG TABLET PO SCH ×2 (09:23→17:51)
[2017-02-27] MEDS: BUMETANIDE INJ 0.25 MG/ML VIAL IV SCH (09:23)
[2017-02-27] MEDS: Z GUARD REMEDY 2 OZ OINT TP SCH (09:24)
[2017-02-27] MEDS: COD LIVER OIL/ZINC OXIDE 120 GM TUBE TP SCH (09:24)
[2017-02-27] MEDS: NEOMY SULF/BACITRAC ZN/POLY 15 GM TUBE TP SCH (09:25)
[2017-02-27] MEDS: NYSTATIN TOP POWDER 15 GM BOTTLE TP SCH ×2 (09:25→18:09)
--- NOTE | 2017-02-27 10:21 | NUR ---
WOUND CARE CONSULT: PT PRESENTS WITH PROFOUND GENERALIZED EDEMA, PRESENT ON ADMISSION. PT HAS 4+ PITTING EDEMA TO UPPER AND LOWER EXTREMITIES WITH BRUISING AND SOME WEEPING WITH SKIN TEARS. SKIN IS TIGHT, SHINY AND FRAGILE ON LOWER EXTREMITIES. SACRAL/BUTTOCKS AREA HAS STAINING AND SCARRING WITH BLANCHING REDNESS. PT ON ELLI ISOFLEX LOW AIRLOSS BED. PT TO BE TURNED AND REPOSITIONED EVERY 2 HRS PT CONDITION PERMITS, HEELS FLOATED. PT INCONTINENT OF STOOL (SEMI-LIQUID). CALLE CATH IN USE. PT FOLLOWED BY PLASTICS TEAM AND ADJUSTER ELECTRICAL CONTACTS. ALL SKIN PROTECTION RECOMMENDATIONS IN PLACE AND DISCUSSED WITH NURSING STAFF. SKIN TO BE KEPT CLEAN AND DRY. WILL SEE PRN. CAMPBELL IN AGREEMENT WITH PLAN OF CARE. Addendum: 02/27/17 at 1026 by TASHA MARQUEZ WNDNU Amended: Links added.
[2017-02-27 12:00] VITALS: BP_SYST 99; BP_DIAS 52; BP_DIAS 53
--- NOTE | 2017-02-27 12:01 | NUR ---
RN NOTES US GUIDED THORACENTESIS ON R SIDE DONE AT BEDSIDE, STAT CXR ORDERED
[2017-02-27 15:59] LABS: PROTEIN, BODY FLUID 0.6 G/DL
[2017-02-27 16:00] VITALS: BP 97/39
[2017-02-27] MEDS: TRAMADOL HCL 50 MG TABLET GT PRN ×2 (17:12→23:32)
--- NOTE | 2017-02-27 19:30 | NUR ---
LOOM OVERHAULER INITIAL NOTE RECEIVED PATIENT IN BED. RESTING COMFORTABLY. CAREGIVER AT BEDSIDE. NO S/S OF PAIN OR DISCOMFORT. RESPIRATIONS ARE EVEN AND UNLABORED. TRACH MIDLINE AND INTACT, ON MECHANICAL VENT AT PRESCRIBED SETTINGS, TOLERATING WELL. PATIENT IS SP THORACENTESIS OF THE RIGHT SIDE, SCHEDULED FOR L SIDED THORACENTESIS TOMORROW 02/28/17. GTUBE FEEDING FIBERSOURCE AT 45ML/HR, NO GASTRIC RESIDUALS NOTED AT THIS TIME. IV SITE PATENT AND INTACT, FLUSHED WITH NS, FREE FROM ANY S/S OF INFILTRATION OR PHLEBITIS. CALLE CATHETER PATENT AND INTACT, DRAINING TO BAG BY GRAVITY, URINE DARK YELLOW IN COLOR. SAFETY MEASURES IMPLEMENTED. BED IN LOCKED, LOW POSITION. CALL LIGHT WITHIN REACH. WILL CONTINUE TO MONITOR.
[2017-02-27 20:00] VITALS: BP 100/45
[2017-02-27] MEDS: ESCITALOPRAM OXALATE (10 MG) 10 MG TABLET GT SCH (21:29)
[2017-02-27] MEDS: ZOLPIDEM TARTRATE 5 MG TABLET GT PRN (21:29)
[2017-02-28] VITALS: BP 101/56
[2017-02-28] MEDS: IPRATROPIUM NEB FS 0.5 MG/2.5 ML AMPUL.NEB IH SCH ×4 (01:40→20:36)
[2017-02-28] MEDS: ALBUTEROL FS 2.5 MG/0.5 ML VIAL.NEB NEB SCH ×4 (01:40→20:36)
[2017-02-28 04:00] VITALS: BP 93/47
[2017-02-28] MEDS: MEROPENEM 500 MG in IV NS 0.9% 50 ML IV SCH ×2 (05:49→16:31)
[2017-02-28] MEDS: PANTOPRAZOLE 40 MG/PACK PACK GT SCH (05:49)
[2017-02-28] MEDS: FIBERSOURCE HN 1,000 ML BOTTLE GT PRN (05:50)
[2017-02-28 06:52] LABS: INR 1.1 (0.87-1.13); PROTHROMBIN TIME 11.8 SECS (9.5-12.7)
--- NOTE | 2017-02-28 07:12 | NUR ---
RN CLOSING NOTES PATIENT CONTINUES ON MECHANICAL VENT, CAREGIVER REMAINS AT BEDSIDE. CONSENT OF THORACENTESIS SIGNED, WILL ENDORSE TO DAY SHIFT NURSE FOR MONTRELL
--- NOTE | 2017-02-28 07:56 | NUR ---
RN INITIAL NOTE PT RECEIVED IN BED, RESTING COMFORTABLY. DAUGHTER AT BEDSIDE NO S/S OF RESPIRATORY DISTRESS OR SOB, RESPIRATIONS EVEN AND UNLABORED. PT IS A-FIB ON TELE MONITOR. NG TUBE FEEDING PATENT, RECEIVING FIBERSOURCE @45ML/HR. SKIN WARM AND DRY TO TOUCH. CATHETER DRAINING WITH GRAVITY. NO S/S OF PAIN OR DISCOMFORT. IV SITE FLUSHED AND PATENT. DRESSING C/D/I. LEFT THORACENTESIS SCHEDULED FOR TODAY. SAFETY MEASURES IN PLACE. BED IN LOCKED, LOW POSITION WITH TWO SIDE RAILS UP. BED ALARM ON. CALL LIGHT WITHIN REACH. WILL CONTINUE TO MONITOR.
[2017-02-28 08:00] VITALS: BP_SYST 87; BP_SYST 90; BP_DIAS 42
[2017-02-28] MEDS: MULTIVIT, IRON, MIN NO. 8, FA 1 TAB TABLET GT SCH (08:30)
[2017-02-28] MEDS: ASPIRIN 81 MG TAB.CHEW GT SCH (08:30)
[2017-02-28] MEDS: BETHANECHOL CHLORIDE (25 MG) 25 MG TABLET GT SCH ×3 (08:30→16:32)
[2017-02-28] MEDS: ACIDOPHILUS/BULGARICUS 1 EACH TAB.CHEW GT SCH ×2 (08:30→16:32)
[2017-02-28] MEDS: NYSTATIN TOP POWDER 15 GM BOTTLE TP SCH ×2 (08:31→16:33)
[2017-02-28] MEDS: NEOMY SULF/BACITRAC ZN/POLY 15 GM TUBE TP SCH (08:31)
[2017-02-28] MEDS: COD LIVER OIL/ZINC OXIDE 120 GM TUBE TP SCH (08:31)
[2017-02-28] MEDS: Z GUARD REMEDY 2 OZ OINT TP SCH (08:31)
[2017-02-28] MEDS: AMIODARONE HCL 200 MG TABLET PO SCH ×2 (08:31→16:33)
[2017-02-28] MEDS: SIMETHICONE 80 MG TAB.CHEW GT SCH ×4 (08:32→21:16)
[2017-02-28 12:00] VITALS: BP 81/45
--- NOTE | 2017-02-28 12:00 | NUR ---
RN NOTE LEFT THORACENTESIS PERFORMED AT BEDSIDE. 1500ML REMOVED. CXR ORDERED. PER MD DO NOT SEND FLUID TO LAB.
[2017-02-28 16:00] VITALS: BP 82/37
[2017-02-28] MEDS: TRAMADOL HCL 50 MG TABLET GT PRN (16:32)
--- NOTE | 2017-02-28 18:18 | NUR ---
RN CLOSING NOTE PT RESTING IN BED COMFORTABLY. ALL MD ORDERS CARRIED OUT. PT. KEPT CLEAN AND DRY. IV SITE C/D/I. PATENT. ALL SAFETY MEASURES IMPLEMENTED AT ALL TIME. ISOLATION PRECAUTIONS OBSERVED. REPORT WILL BE GIVEN TO PM RN FOR MONTRELL.
--- NOTE | 2017-02-28 19:30 | NUR ---
NECK BAND SETTER INITIAL NOTE PT RECEIVED AWAKE AND ALERT IN BED WITH FAMILY AND CAREGIVER AT BEDSIDE. A/O X3 NONVERBAL BUT MOUTHS WORDS. TELE- AFIB 70'S W BBB. ON MECH VENT SATING WELL AND ALL VENT SETTINGS WELL TOLERATED. GTUBE FLUSHING WELL, PATENT, NO RESIDUAL NOTED AND FEEDING WELL TOLERATED. GTUBE SITE CLEAN, DRY AND INTACT. CALLE CATHETER PATENT AND DRAINING BY GRAVITY. IV RIGHT HAND #20 SL CLEAN, DRY, INTACT, FLUSHING WELL AND PATENT. ALL SAFETY MEASURES IN PLACE AT ALL TIMES, CALL LIGHT WITHIN EASY REACH. WILL CONTINUE TO MONITOR.
[2017-02-28 20:00] VITALS: BP 95/50
[2017-02-28] MEDS: ACETAMINOPHEN 650 MG/20.3 ML UDC GT PRN (21:15)
[2017-02-28] MEDS: ZOLPIDEM TARTRATE 5 MG TABLET GT PRN (21:16)
[2017-02-28] MEDS: ESCITALOPRAM OXALATE (10 MG) 10 MG TABLET GT SCH (21:16)
[2017-03-01] VITALS: BP_SYST 95; BP_SYST 96; BP_DIAS 44; BP_DIAS 50
[2017-03-01] MEDS: ALBUTEROL FS 2.5 MG/0.5 ML VIAL.NEB NEB SCH ×4 (01:40→19:30)
[2017-03-01] MEDS: IPRATROPIUM NEB FS 0.5 MG/2.5 ML AMPUL.NEB IH SCH ×4 (01:40→19:30)
[2017-03-01 04:00] VITALS: BP 86/42
[2017-03-01] MEDS ORDERED: IV NS 0.9% 250 ML IV ONE (04:37)
[2017-03-01] MEDS: FIBERSOURCE HN 1,000 ML BOTTLE GT PRN (04:51)
[2017-03-01] MEDS: MEROPENEM 500 MG in IV NS 0.9% 50 ML IV SCH ×2 (04:52→16:14)
[2017-03-01] MEDS: PANTOPRAZOLE 40 MG/PACK PACK GT SCH (05:02)
--- NOTE | 2017-03-01 06:30 | NUR ---
COMMERCIAL ILLUSTRATOR CLOSING NOTE PT REMAINED STABLE DURING SHIFT. ON [facility] VENT, WELL TOLERATED AND SATING WELL. IV SITE INTACT. GTUBE PATENT AND NO RESIDUAL. CALLE CATHETER INTACT AND PATENT. ISOLATION PRECAUTIONS OBSERVED. ALL SAFETY MEASURES IN PLACE. CAREGIVER AT BEDSIDE. WILL ENDORSE TO NEXT SHIFT FOR MONTRELL.
--- NOTE | 2017-03-01 07:30 | NUR ---
THEATRICAL DRESSER INITIAL NOTE PT ON BED, AOX3, MOUTHS WORDS, NO SOB, NO DISTRESS NOTED, DENIES PAIN, NO FEVER, GENERALIZED EDEMA, LUNGS CLEAR, ON MECH VENT WITH ORDERED SETTINGS, SATURATION 100%, ON SNAILER AFIB WITH BBB, AND PVCS, HR 80, IV SITE INTACT. GTUBE PATENT AND NO RESIDUAL. CALLE CATHETER INTACT AND PATENT. HOB >30 DEGREE, ISOLATION PRECAUTIONS OBSERVED. ALL SAFETY MEASURES IN PLACE. DAUGHTER AT BEDSIDE. WILL CONTINUE TO MONITOR.
[2017-03-01 08:00] VITALS: BP 106/50
[2017-03-01] MEDS: ACIDOPHILUS/BULGARICUS 1 EACH TAB.CHEW GT SCH ×2 (08:49→16:15)
[2017-03-01] MEDS: MULTIVIT, IRON, MIN NO. 8, FA 1 TAB TABLET GT SCH (08:49)
[2017-03-01] MEDS: ASPIRIN 81 MG TAB.CHEW GT SCH (08:49)
[2017-03-01] MEDS: SIMETHICONE 80 MG TAB.CHEW GT SCH ×4 (08:50→21:52)
[2017-03-01] MEDS: CYANOCOBALAMIN 1,000 MCG/ML VIAL IM SCH (08:50)
[2017-03-01] MEDS: BETHANECHOL CHLORIDE (25 MG) 25 MG TABLET GT SCH ×3 (08:50→16:15)
[2017-03-01] MEDS: AMIODARONE HCL 200 MG TABLET PO SCH ×2 (08:50→16:16)
[2017-03-01] MEDS: COD LIVER OIL/ZINC OXIDE 120 GM TUBE TP SCH (08:53)
[2017-03-01] MEDS: NYSTATIN TOP POWDER 15 GM BOTTLE TP SCH ×2 (08:53→16:17)
[2017-03-01] MEDS: NEOMY SULF/BACITRAC ZN/POLY 15 GM TUBE TP SCH (08:54)
[2017-03-01] MEDS: Z GUARD REMEDY 2 OZ OINT TP SCH (08:54)
[2017-03-01 12:00] VITALS: BP 126/49
--- NOTE | 2017-03-01 12:05 | NUR ---
RN NOTE PT VOMITED x1 LARGE EMESIS, FEEDING HELD AT THIS TIME. PT SUCTIONED AND CLEANED, RT AT BED SIDE, WILL ADMINISTER ZOFRAN AND CONTINUE TO MONITOR.
--- NOTE | 2017-03-01 12:30 | NUR ---
RN NOTE PT REFUSED ZOFRAN TABLET. STATED THAT NO MORE NAUSEA PRESENT.
[2017-03-01] MEDS: TRAMADOL HCL 50 MG TABLET GT PRN (12:58)
[2017-03-01] MEDS: ACETAMINOPHEN 650 MG/20.3 ML UDC GT PRN (15:17)
[2017-03-01 16:00] VITALS: BP 126/49
[2017-03-01] MEDS: HYDROCODONE/APAP 5/325MG 1 EACH TABLET GT PRN ×2 (16:15→21:59)
[2017-03-01 17:47] LABS: ABG BASE EXCESS 5.6 mmol/L; ABG OXYGEN SATURATION 96.8 % (92.0-98.5); ABG PCO2 46.6 mmHg (35.0-45.0); ABG PH 7.434 (7.350-7.450); ABG PO2 102.7 mmHg (75.0-100.0); ABG TOTAL HEMOGLOBIN 9.6 G/dL (12.0-16.0); AaDO2 128.9 mmHg; COHb 0.5 % (0.5-1.5); MetHb 1.3 % (0.0-1.5); O2Hb 95.1 % (94.0-97.0); PEEP,BG 5 cm H2O; SITE, ABG Right Radial; VT, ABG 500 mL
--- NOTE | 2017-03-01 17:57 | NUR ---
RT NOTES: BREATHING TREATMENT GIVEN PER ORDER, TOLERATED WELL. PT STARTED VOMITING DURING VENTILATOR CHECK AND FAMILY MEMBERS WERE IN THE ROOM. SUCTIONED ORALLY TO PREVENT ASPIRATION, NURSE YASMEEN IS AWARE.
[2017-03-01] MEDS ORDERED: MORPHINE SULFATE INJ 2 MG/ML DISP.SYRIN IVP PRN (18:30)
--- NOTE | 2017-03-01 18:30 | NUR ---
RN NOTE PT HAD SHALLOW RESPIRATIONS AND LOW MANDATORY TV, ALSO CO PAIN 10/10 UNRELIEVED BY NORCO AND REPOSITIONING, DR MCCABE CALLED WITH THE RESULTS OF ABGS AND GOT AN ORDER FOR MORPHINE 1 MG IVP. WILL CARRY OUT ORDER. PT HAD 350 URINE OUTPUT, DR MCCABE AWARE.
--- NOTE | 2017-03-01 19:13 | NUR ---
RN CLOSING NOTE PT REMAINED STABLE OTHER THAT DESCRIBED ABOVE, ISOLATION OBSERVED, SAFETY PRECAUTIONS MAINTAINED, KEPT CLEAN AND DRY, WOUND TREATMENT DONE, NEEDS MET, MEDS GIVEN ORDERED. WILL ENDORSE TO ENVIRONMENTAL AIDE FOR MONTRELL.
[2017-03-01 20:00] VITALS: BP 87/50
[2017-03-01] MEDS: ESCITALOPRAM OXALATE (10 MG) 10 MG TABLET GT SCH (21:52)
--- NOTE | 2017-03-01 22:01 | NUR ---
RN- PT CO LOWER BACK PAIN OF 10/10. COMFORT MEASURES GIVEN. NON PHARMACOLOGICAL MEANS OF PAIN RELIEF INEFFECTIVE. PRN NORCO 5/325 1 TAB GIVEN VIA GT FOR PAIN. TOLERATED WELL. NO S/SX OF ADVERSE REACTION NOTED. WILL MONITOR FOR S/SX OF PAIN.
[2017-03-02] VITALS (10 sets, daily range): BP systolic 91–109; BP diastolic 45–55
[2017-03-02] MEDS: ACETAMINOPHEN 650 MG/20.3 ML UDC GT PRN ×2 (00:04→11:09)
[2017-03-02] MEDS: IPRATROPIUM NEB FS 0.5 MG/2.5 ML AMPUL.NEB IH SCH ×4 (01:30→19:30)
[2017-03-02] MEDS: ALBUTEROL FS 2.5 MG/0.5 ML VIAL.NEB NEB SCH ×4 (01:30→19:30)
[2017-03-02] MEDS: MEROPENEM 500 MG in IV NS 0.9% 50 ML IV SCH ×2 (04:28→16:29)
[2017-03-02] MEDS: HYDROCODONE/APAP 5/325MG 1 EACH TABLET GT PRN ×2 (04:29→21:41)
[2017-03-02] MEDS: PANTOPRAZOLE 40 MG/PACK PACK GT SCH (05:47)
[2017-03-02] MEDS: FIBERSOURCE HN 1,000 ML BOTTLE GT PRN (05:47)
[2017-03-02 06:20] LABS: BASOPHILS % (AUTO) 0.4 % (0.0-2.0); HEMATOCRIT 23 % (33-45); HEMOGLOBIN 7.8 g/dL (11.5-14.8); LYMPHOCYTES # (AUTO) 0.3 /CMM (0.8-4.8); LYMPHOCYTES % (AUTO) 3.7 % (20.0-44.0); MEAN CORPUSCULAR HEMOGLOBIN 30 PG (26.0-33.0); MEAN CORPUSCULAR HGB CONC 34 g/dl (31.0-36.0); MEAN CORPUSCULAR VOLUME 89 fL (82-100); MONOCYTES # (AUTO) 0.6 /CMM (0.1-1.30); MONOCYTES % (AUTO) 8.7 % (2.0-12.0); NEUTROPHILS # (AUTO) 6.2 /CMM (1.8-8.9); NEUTROPHILS % (AUTO) 87.2 % (43.0-81.0); PLATELET COUNT (AUTO) 191 /CMM (150-450); RDW COEFFICIENT OF VARIATION 20.4 (11.5-15.0); WHITE BLOOD COUNT (AUTO) 7.2 K/uL (4.3-11.0)
--- NOTE | 2017-03-02 07:05 | NUR ---
RN NOTE RECEIVE PT ON BED, AOX3, MOUTHS WORDS, TRACH DEPENDENT , TRACH CARE DONE, NO SOB NOTED, TOLERATING CURRENT SETTING WELL, GENERALIZED EDEMA NOTED, ON ORDER SCHEDULE CLERK AFIB WITH BBB, AND PVCS, R HAND IV SITE CDI, TOLERATING G TUBE WELL, NO RESIDUAL NOTED , HOB ELEVATED , CALLE CATHETER INTACT AND PATENT. ISOLATION PRECAUTIONS OBSERVED. SR UP x3, ALL SAFETY MEASURES IN PLACE. SUPERVISORY AIDE AT THE BEDSIDE, WILL CONTINUE TO MONITOR PT CLOSELY AND NOTIFY MD FOR ANY SIGNIFICANTS CHANGES
[2017-03-02 07:12] LABS: CALCIUM, SERUM 8.7 mg/dL (8.5-10.1); CREATININE 1.3 mg/dL (0.6-1.3); MAGNESIUM 2.1 mg/dL (1.8-2.4); POTASSIUM 4.7 mmol/L (3.5-5.1)
--- NOTE | 2017-03-02 08:07 | NUR ---
PT REFUSED BREATHING TX. DAUGHTER AT BEDSIDE. DAUGHTER PUSHING FOR TX BUT PT IS REFUSING. JOSE BUSH AWARE.
[2017-03-02] MEDS: ACIDOPHILUS/BULGARICUS 1 EACH TAB.CHEW GT SCH ×2 (08:19→16:25)
[2017-03-02] MEDS: BETHANECHOL CHLORIDE (25 MG) 25 MG TABLET GT SCH ×3 (08:20→16:25)
[2017-03-02] MEDS: ASPIRIN 81 MG TAB.CHEW GT SCH (08:20)
[2017-03-02] MEDS: MULTIVIT, IRON, MIN NO. 8, FA 1 TAB TABLET GT SCH (08:20)
[2017-03-02] MEDS: SIMETHICONE 80 MG TAB.CHEW GT SCH ×4 (08:22→21:40)
[2017-03-02] MEDS: AMIODARONE HCL 200 MG TABLET PO SCH ×2 (08:22→16:26)
[2017-03-02] MEDS: NYSTATIN TOP POWDER 15 GM BOTTLE TP SCH ×2 (08:24→16:31)
[2017-03-02] MEDS: VITAMINS A AND D 56.7 GM TUBE TP PRN (08:24)
[2017-03-02] MEDS: Z GUARD REMEDY 2 OZ OINT TP SCH (08:24)
[2017-03-02] MEDS: COD LIVER OIL/ZINC OXIDE 120 GM TUBE TP SCH (08:26)
[2017-03-02] MEDS: NEOMY SULF/BACITRAC ZN/POLY 15 GM TUBE TP SCH (08:26)
--- NOTE | 2017-03-02 12:00 | NUR ---
RN NOTES PT REMAINS STABLE, SUPPORTIVE FAMILY AT THE BEDSIDE , CONTINUE TO MONITOR .
[2017-03-02] MEDS ORDERED: BUMETANIDE INJ 3 MG in IV NS 0.9% 48 ML IV ONE (14:30)
[2017-03-02] MEDS ORDERED: SECONDARY IV SET 1 EA INFUS.SET MC ONE (15:53)
--- NOTE | 2017-03-02 18:38 | NUR ---
RN NOTES PT STABLE ,TRACH CARE DONE, RESPIRATION EVEN AND UNLABORED, CALLE DRAINING TO GRAVITY , BLOOD TRANSFUSION CONSENT OBTAINED FORM THE FAMILY , PT MEDICATED PER MD ORDER , NO SIGNIFICANT CHANGES NOTED ON THIS SHIT .
--- NOTE | 2017-03-02 19:20 | NUR ---
RN NOTES RECEIVED PT AWAKE ON BED WITH FAMILY AT BEDSIDE AND ABOUT TO LEAVE FACE WORKER STAYED. PT IS AOX3 WITH TRACH AND VENT SETTING TOLERATED WELL. NO SOB OR ACUTE RESP DISTRESS. AFEBRILE. VS STABLE. PT ASLEEP BUT EASILY AROUSABLE
--- NOTE | 2017-03-02 19:30 | NUR ---
RN NOTES CALLED MD AND INFORMED THAT BUMEX WAS GIVEN FIRST BEFORE THE FIRST UNIT OF BLOOD TRANSFUSION. WAITED TO CALL BACK.
--- NOTE | 2017-03-02 20:35 | NUR ---
RN NOTES DR. VELAZQUEZ CALL BACK AND OK TO GIVE BLOOD TRANSFUSION INSPITE BUMEX GIVEN BEFORE FIRST UNIT OF BLOOD.
[2017-03-02] MEDS ORDERED: IV NS 0.9% 250 ML IV ONE (20:36)
[2017-03-02] MEDS ORDERED: BLOOD IV SET 1 EA INFUS.SET MC ONE (20:37)
--- NOTE | 2017-03-02 20:57 | NUR ---
PT REFUSED BREATHING TX. DAUGHTER AND TV TECHNICIAN AT BEDSIDE. PT STABLE. 100% SATURATION 60 HR. Addendum: 03/02/17 at 2057 by BIGG FONTAINE RT Amended: Links added.
[2017-03-02] MEDS: ESCITALOPRAM OXALATE (10 MG) 10 MG TABLET GT SCH (21:40)
--- NOTE | 2017-03-02 23:57 | NUR ---
RN NOTES FIRST UNIT OF BLOOD FINISH WITH BLP OF 94/48 RESP 18 PULSE 61 NO SOB, AFEBRILE. PT ASLEEP AT THIS TIME. SECOND UNIT OF BLOOD STARTED.
[2017-03-03] VITALS (10 sets, daily range): BP systolic 89–104; BP diastolic 41–59
[2017-03-03] MEDS: IPRATROPIUM NEB FS 0.5 MG/2.5 ML AMPUL.NEB IH SCH ×5 (00:48→19:30)
[2017-03-03] MEDS: ALBUTEROL FS 2.5 MG/0.5 ML VIAL.NEB NEB SCH ×5 (00:48→19:30)
[2017-03-03] MEDS: ACETAMINOPHEN 650 MG/20.3 ML UDC GT PRN (01:47)
[2017-03-03] MEDS: ZOLPIDEM TARTRATE 5 MG TABLET GT PRN (01:47)
--- NOTE | 2017-03-03 03:35 | NUR ---
RN NOTES 2 UNITS OF BLOOD TRANSFUSED WITHOUT ANY ASE SHOWS. PT ASLEEP AT THIS TIME TRACH AND VENT SETTING TOLERATED WELL SATING 98%. AFEBRILE. EASILY AROUSABLE. LAST VS TAKEN TEMP 98.2 RESP 17 PULSE 59 BP 104/59 SATING 98%. WITH GOOD URINE OUTPUT FROM CALLE. WILL CONTINUE TO MONITOR
[2017-03-03] MEDS: FIBERSOURCE HN 1,000 ML BOTTLE GT PRN (05:25)
[2017-03-03] MEDS: PANTOPRAZOLE 40 MG/PACK PACK GT SCH (05:33)
[2017-03-03] MEDS: MEROPENEM 500 MG in IV NS 0.9% 50 ML IV SCH ×2 (05:34→16:44)
[2017-03-03 06:27] LABS: BASOPHILS % (AUTO) 0.3 % (0.0-2.0); HEMATOCRIT 34 % (33-45); HEMOGLOBIN 11.5 g/dL (11.5-14.8); LYMPHOCYTES # (AUTO) 0.6 /CMM (0.8-4.8); LYMPHOCYTES % (AUTO) 7.9 % (20.0-44.0); MEAN CORPUSCULAR HEMOGLOBIN 30 PG (26.0-33.0); MEAN CORPUSCULAR HGB CONC 34 g/dl (31.0-36.0); MEAN CORPUSCULAR VOLUME 89 fL (82-100); MONOCYTES # (AUTO) 0.9 /CMM (0.1-1.30); MONOCYTES % (AUTO) 11.6 % (2.0-12.0); NEUTROPHILS # (AUTO) 6.1 /CMM (1.8-8.9); NEUTROPHILS % (AUTO) 80.2 % (43.0-81.0); PLATELET COUNT (AUTO) 204 /CMM (150-450); RDW COEFFICIENT OF VARIATION 18.4 (11.5-15.0); RED BLOOD CELL COUNT(AUTO) 3.83 MIL/uL (4.0-5.2); WHITE BLOOD COUNT (AUTO) 7.7 K/uL (4.3-11.0)
--- NOTE | 2017-03-03 06:36 | NUR ---
RN NOTES PT IN STABLE CONDITION TOLERATED 2 UNITS OF BLOOD TRANSFUSION NO ASE NOTED. AFEBRILE. NO ACUTE RESP DISTRESS. TRACH AND VENT TOLERATED. SATING 98% REMAINED. IV ATB CONTINUE TO GIVE NO ASE SHOWS. PT ASLEEP WELL. TURNED AND REPOSITIONED PROTOCOL AND PRN, WOUND DRESSING DONE. PAIN MEDICINE EFFECTIVE. CONTINUE TO MONITOR LAB VALUES AND BP. KEPT PT CLEAN AND DRY. DYNAMIC BALANCER AT BEDSIDE. WILL ENDORSED CONTINUITY OF CARE TO AM NURSE.
[2017-03-03 07:44] LABS: ALBUMIN 1.9 g/dL (3.4-5.0); BILIRUBIN,TOTAL 0.3 mg/dL (0.2-1.0); CALCIUM, SERUM 8.8 mg/dL (8.5-10.1); CREATININE 1.3 mg/dL (0.6-1.3); POTASSIUM 4.5 mmol/L (3.5-5.1); TOTAL PROTEIN, SERUM 5.5 g/dL (6.4-8.2)
--- NOTE | 2017-03-03 08:00 | NUR ---
TELE1/RN AM SHIFT INITIAL NOTES Received pt asleep in bed, with pt's daughter at bedside. Pt A/O x 3, able to mouth words, denies any symptoms. No acute respiratory distress, noted with generalized edema, lung sounds diminished, saturating @ 96%. On tele with sinus rhythm, HR 94, no pacing noted at this time. On ventilator set rates as prescribed, suctioned for airway clearance. With on going GTF @ 45cc/hr, flushed, patent with no residual. IV site flushed, patent with no s/s of infection. De León catheter intact with yellow urine output noted. Pt is comfortable at this time. Scheduled AM meds to be given. CL within reached, safety maintained and isolation observed. On going monitoring.
[2017-03-03] MEDS: BETHANECHOL CHLORIDE (25 MG) 25 MG TABLET GT SCH ×3 (08:49→16:44)
[2017-03-03] MEDS: SIMETHICONE 80 MG TAB.CHEW GT SCH ×4 (08:49→21:57)
[2017-03-03] MEDS: ACIDOPHILUS/BULGARICUS 1 EACH TAB.CHEW GT SCH ×2 (08:49→16:44)
[2017-03-03] MEDS: ASPIRIN 81 MG TAB.CHEW GT SCH (08:49)
[2017-03-03] MEDS: MULTIVIT, IRON, MIN NO. 8, FA 1 TAB TABLET GT SCH (08:49)
[2017-03-03] MEDS: AMIODARONE HCL 200 MG TABLET PO SCH ×2 (08:49→16:44)
[2017-03-03] MEDS: NYSTATIN TOP POWDER 15 GM BOTTLE TP SCH ×2 (08:50→16:44)
[2017-03-03] MEDS: NEOMY SULF/BACITRAC ZN/POLY 15 GM TUBE TP SCH (08:50)
[2017-03-03] MEDS: COD LIVER OIL/ZINC OXIDE 120 GM TUBE TP SCH (08:50)
[2017-03-03] MEDS: Z GUARD REMEDY 2 OZ OINT TP SCH (08:50)
[2017-03-03] MEDS: BUMETANIDE (1 MG) 1 MG TABLET PO SCH (11:09)
--- NOTE | 2017-03-03 13:04 | NUR ---
RN NOTES CALLED DR. NAGEL OFFICE REGARDING PROCEDURE, LEFT MESSAGE, AWAITING CALL BACK
[2017-03-03] MEDS ORDERED: FENTANYL PF 100MCG/2ML AMPUL ONE (14:19)
[2017-03-03] MEDS ORDERED: ATRACURIUM 100MG/10 ML MDV IV ONE (14:20)
--- NOTE | 2017-03-03 14:40 | NUR ---
TELE1/RN OFF TO OR - Pleural Tube Placement Pt left Tele1 unit via bed in stable condition, accompanied by OR nurse and OR flight/transport nurse and RT. Procedure to be performed by Dr. Staley.
--- NOTE | 2017-03-03 15:45 | NUR ---
TELE1/RN BACK FROM OR PT BACK FROM OR, BILATERAL PLEURAL TUBE IN PLACED, CLEAN & DRY. PT IS STABLE. PER DR. FRAGOSO, RESUME TREATMENT ORDERS. PER OR NURSE, REMOVED 1L IN THE RIGHT LUNG AND 1.1L IN LEFT LUNG.
[2017-03-03] MEDS ORDERED: ANESTHESIA TRAY IN PYXIS 1 EA TRAY MC ONE (16:22)
[2017-03-03] MEDS: MORPHINE SULFATE INJ 2 MG/ML DISP.SYRIN IVP PRN (16:50)
--- NOTE | 2017-03-03 19:30 | NUR ---
RADIOLOGICAL TECHNOLOGIST INITIAL NOTES RECEIVED PATIENT AWAKE, ALERT, NON-VERBAL, VENT DEPENDENT, MOUTHS WORDS. RESPIRATIONS EVEN AND UNLABORED, WITH VENT SETTINGS AC 12, VT 500, PEEP 5, FIO2 40%, SPO2 100%. WITH C/O OF BLE AND RIGHT ARM 8/10 PAIN. ON TELE MONITOR AFIB WITH BBB 91. WITH GTF PATENT, INTACT, IN PLACE, NO RESIDUAL NOTED. WITH F/C PATENT AND INTACT, DRAINING BY GRAVITY. WITH BILATERAL PLEURIX IN PLACE. PRIVATE CAREGIVER AT BEDSIDE. HOB KEPT ELEVATED. SIDE RAILS UP AND LOCKED. BED KEPT AT LOWEST POSITION. CALL LIGHT KEPT WITHIN EASY REACH. ISOLATION PRECAUTIONS OBSERVED. WILL CONTINUE TO MONITOR.
--- NOTE | 2017-03-03 19:33 | NUR ---
TELE1/RN AM SHIFT END NOTES No acute change of condition noted during the shift. pt tolerated placement of pleural tubes, intact. De León catheter intact, IV site patent, with no s/s of infection. GTF on going patent @ 45cc/hr. Needs met. Pt endorsed to PM nurse to continue care. CL within reached, safety maintained and isolation observed.
[2017-03-03] MEDS: HYDROCODONE/APAP 5/325MG 1 EACH TABLET GT PRN (20:14)
[2017-03-03] MEDS: ESCITALOPRAM OXALATE (10 MG) 10 MG TABLET GT SCH (21:57)
[2017-03-04] VITALS (7 sets, daily range): BP systolic 92–108; BP diastolic 39–54
[2017-03-04] MEDS: ACETAMINOPHEN 650 MG/20.3 ML UDC GT PRN (00:35)
[2017-03-04] MEDS: IPRATROPIUM NEB FS 0.5 MG/2.5 ML AMPUL.NEB IH SCH ×4 (01:30→19:30)
[2017-03-04] MEDS: ALBUTEROL FS 2.5 MG/0.5 ML VIAL.NEB NEB SCH ×4 (01:30→19:30)
[2017-03-04] MEDS ORDERED: IV NS 0.9% 250 ML IV ONE (03:58)
[2017-03-04] MEDS: MEROPENEM 500 MG in IV NS 0.9% 50 ML IV SCH ×2 (04:12→16:21)
[2017-03-04] MEDS: HYDROCODONE/APAP 5/325MG 1 EACH TABLET GT PRN ×2 (04:32→21:56)
[2017-03-04] MEDS: FIBERSOURCE HN 1,000 ML BOTTLE GT PRN (04:42)
[2017-03-04 05:48] LABS: BASOPHILS % (AUTO) 0.3 % (0.0-2.0); EOSINOPHILS # (AUTO) 0.1 /CMM (0.0-0.7); EOSINOPHILS % (AUTO) 0.8 % (0.0-6.0); HEMATOCRIT 32 % (33-45); LYMPHOCYTES # (AUTO) 0.6 /CMM (0.8-4.8); LYMPHOCYTES % (AUTO) 6.9 % (20.0-44.0); MEAN CORPUSCULAR HEMOGLOBIN 31 PG (26.0-33.0); MEAN CORPUSCULAR HGB CONC 34 g/dl (31.0-36.0); MEAN CORPUSCULAR VOLUME 89 fL (82-100); MONOCYTES # (AUTO) 0.8 /CMM (0.1-1.30); MONOCYTES % (AUTO) 9.4 % (2.0-12.0); NEUTROPHILS # (AUTO) 7.1 /CMM (1.8-8.9); NEUTROPHILS % (AUTO) 82.6 % (43.0-81.0); PLATELET COUNT (AUTO) 198 /CMM (150-450); RDW COEFFICIENT OF VARIATION 18.3 (11.5-15.0); RED BLOOD CELL COUNT(AUTO) 3.61 MIL/uL (4.0-5.2); WHITE BLOOD COUNT (AUTO) 8.6 K/uL (4.3-11.0)
[2017-03-04 06:31] LABS: ALBUMIN 1.7 g/dL (3.4-5.0); BILIRUBIN,TOTAL 0.4 mg/dL (0.2-1.0); CALCIUM, SERUM 8.6 mg/dL (8.5-10.1); CREATININE 1.3 mg/dL (0.6-1.3); MAGNESIUM 1.9 mg/dL (1.8-2.4); PHOSPHORUS 3.6 mg/dL (2.5-4.9); POTASSIUM 4.3 mmol/L (3.5-5.1)
[2017-03-04] MEDS: PANTOPRAZOLE 40 MG/PACK PACK GT SCH (06:46)
--- NOTE | 2017-03-04 07:21 | NUR ---
RN CLOSING NOTES PT IS IN BED, HOB OF ELEVATED 35 DEGREES ANGLE, PT IS ON MECHANICAL VENT, PT NO SIGN AND SYMPTOMS OF ANY RESPIRATORY DISTRESS NOTED. IV L FA SITES IS PATENT, NO SIGNS AND SYMPTOMS OF INFECTION OR INFILTRATION NOTED. ALL MEDS GIVEN AND PT TOLERATED IT WELL. PT KEPT CLEAN AND DRY AND TURNED REPOSITIONED Q2 HOURS. ANTICIPATED ALL NEEDS, SAFETY MEASURES MAINTAINED, CALL LIGHTS WITHIN REACHED AND ENDORSED TO THE NIGHT NURSE. Addendum: 03/04/17 at 0749 by DIEUDONNE GORMAN RN CORRECTION: IV SITES RIGHT HAND PATENT AND INTACT
--- NOTE | 2017-03-04 08:00 | NUR ---
TELE1/RN AM SHIFT INITIAL NOTES Received pt awake in bed, with pt's daughter at bedside. Pt A/O x 3, able to mouth words, no acute change of condition noted. Noted with generalized edema, but less swelling compared to yesterday. On ventilator set rates as prescribed, saturating @ 100%, pt refused suctioning, lung sounds diminished. On tele V-pacing, HR 60. With on going GTF @ 45cc/hr, flushed, patent with no residual. IV site flushed, patent with no s/s of infection. De León catheter intact with yellow urine output. Pt is comfortable at this time. Scheduled AM meds to be given. CL within reached, safety maintained and isolation observed. On going monitoring. Addendum: 03/04/17 at 1029 by RAMON LEO RN ADDENDUM: Pleural tubes in placed, dressing noted with minimal discharged.
[2017-03-04] MEDS: BUMETANIDE (1 MG) 1 MG TABLET PO SCH (08:22)
[2017-03-04] MEDS: SIMETHICONE 80 MG TAB.CHEW GT SCH ×4 (08:23→21:51)
[2017-03-04] MEDS: ASPIRIN 81 MG TAB.CHEW GT SCH (08:23)
[2017-03-04] MEDS: BETHANECHOL CHLORIDE (25 MG) 25 MG TABLET GT SCH ×3 (08:23→16:21)
[2017-03-04] MEDS: AMIODARONE HCL 200 MG TABLET PO SCH ×2 (08:23→16:23)
[2017-03-04] MEDS: MULTIVIT, IRON, MIN NO. 8, FA 1 TAB TABLET GT SCH (08:23)
[2017-03-04] MEDS: ACIDOPHILUS/BULGARICUS 1 EACH TAB.CHEW GT SCH ×2 (08:23→16:21)
[2017-03-04] MEDS: Z GUARD REMEDY 2 OZ OINT TP SCH (08:24)
[2017-03-04] MEDS: NEOMY SULF/BACITRAC ZN/POLY 15 GM TUBE TP SCH (08:25)
[2017-03-04] MEDS: COD LIVER OIL/ZINC OXIDE 120 GM TUBE TP SCH (08:25)
[2017-03-04] MEDS: NYSTATIN TOP POWDER 15 GM BOTTLE TP SCH ×2 (08:26→16:24)
[2017-03-04] MEDS: TRAMADOL HCL 50 MG TABLET GT PRN (08:31)
--- NOTE | 2017-03-04 10:53 | NUR ---
TELE1/RN ROUNDS - DR. PARNELL Pt Seen and examined by Dr. Parnell, no new orders received at this time. Monitoring continued.
--- NOTE | 2017-03-04 12:00 | NUR ---
TELE1/RN ROUNDS - DR. CHAVES UPDATED PT'S CONDITION. ASKED DR. CHAVES WHAT FREQUENCY HE WANTED TO DRAIN THE PLEURAL TUBE, WITH VERBAL ORDER RECEIVED TO DRAIN EVERY 6 HRS AND RECORD OUTPUT EVERY TIME. ORDER NOTED AND CARRIED. NO CHANGE OF CONDITION. DRAINED 600ML IN RIGHT LUNG AND 400 IN LEFT LUNG. MONITORING CONTINUED.
[2017-03-04] MEDS: HYDROCODONE/APAP 5/325MG 1 EACH TABLET PO PRN ×2 (12:33→17:51)
[2017-03-04] MEDS: MORPHINE SULFATE INJ 2 MG/ML DISP.SYRIN IVP PRN (14:44)
--- NOTE | 2017-03-04 18:00 | NUR ---
TELE1/RN PLEURAL DRAIN REMOVED 200ML OF FLUID FROM EACH LUNG. PT TOLERATED PROCEDURE. NO CHANGE OF CONDITION. MONITORING CONTINUED.
--- NOTE | 2017-03-04 19:25 | NUR ---
TELE1/RN AM SHIFT END NOTES NO ACUTE CHANGE OF CONDITION NOTED DURING THE SHIFT. NEEDS MET. IV SITE, INTACT & PATENT, NO S/S OF INFECTION. PLEURAL TUBES INTACT. CALLE CATHETER INTACT. PT ENDORSED TO PM NURSE TO CONTINUE CARE. PT'S DAUGHTER AT BEDSIDE. CL WITHIN REACHED, SAFETY MAINTAINED AND ISOLATION OBSERVED.
--- NOTE | 2017-03-04 19:30 | NUR ---
FILTER TENDER JELLY INITIAL NOTES RECEIVED PATIENT AWAKE, NON-VERBAL, A/OX3, ABLE TO MAKE NEEDS KNOWN, ABLE TO MOUTH WORDS. RESPIRATIONS EVEN AND UNLABORED. WITH BILATERAL PLEURX IN PLACE. DRESSING DRY AND INTACT. WITH VENT SETTINGS AC 12, TV 500, FIO2 40%, PEEP 5, SPO2 100%. TOLERATING GTF, GT PATENT, INTACT, IN PLACE. DAUGHTER AT BEDSIDE. WITH C/O GENERALIZED PAIN 05/06. F/C PATENT, INTACT, IN PLACE. ON TELE MONITOR A PACING. ISOLATION PRECAUTIONS OBSERVED. HOB KEPT ELEVATED. SIDE RAILS UP AND LOCKED. BED KEPT AT LOWEST POSITION. CALL LIGHT KEPT WITHIN EASY REACH. WILL CONTINUE TO MONITOR.
[2017-03-04] MEDS: ESCITALOPRAM OXALATE (10 MG) 10 MG TABLET GT SCH (21:52)
[2017-03-05] VITALS: BP 97/50
--- NOTE | 2017-03-05 00:15 | NUR ---
DRAINED BILATERAL PLEURX, PATIENT TOLERATED PROCEDURE WELL. RIGHT LUNG 100ML OUT OF SEROUSANGUINOUS FLUID, LEFT LUNG 100ML OF SEROUSANGUINOUS FLUID. WILL CONTINUE TO MONITOR.
[2017-03-05] MEDS: ZOLPIDEM TARTRATE 5 MG TABLET GT PRN (00:24)
[2017-03-05] MEDS: IPRATROPIUM NEB FS 0.5 MG/2.5 ML AMPUL.NEB IH SCH ×3 (01:30→13:30)
[2017-03-05] MEDS: ALBUTEROL FS 2.5 MG/0.5 ML VIAL.NEB NEB SCH ×3 (01:30→13:30)
[2017-03-05 04:00] VITALS: BP 109/46
[2017-03-05] MEDS: FIBERSOURCE HN 1,000 ML BOTTLE GT PRN (05:07)
[2017-03-05] MEDS: PANTOPRAZOLE 40 MG/PACK PACK GT SCH (05:07)
[2017-03-05] MEDS: HYDROCODONE/APAP 5/325MG 1 EACH TABLET PO PRN ×2 (05:07→14:15)
[2017-03-05] MEDS: MEROPENEM 500 MG in IV NS 0.9% 50 ML IV SCH ×2 (05:07→17:22)
[2017-03-05] MEDS ORDERED: IV NS 0.9% 250 ML IV ONE (05:56)
[2017-03-05] MEDS ORDERED: IV SET PRIMARY PUMP SET 1 EA INFUS.SET MC ONE (05:56)
--- NOTE | 2017-03-05 06:11 | NUR ---
NETWORK STRATEGIST NOTES DRAINED BILATERAL PLEURX, 175ML LEFT SIDE, 250ML RIGHT SIDE. TOLERATED WELL. WILL CONTINUE TO MONITOR.
--- NOTE | 2017-03-05 07:30 | NUR ---
RN NOTES RECEIVED PATIENT AWAKE, NON-VERBAL, A/OX3, ABLE TO MAKE NEEDS KNOWN, THRU MOUTH WORDS. RESPIRATIONS EVEN AND UNLABORED. WITH BILATERAL PLEURX IN PLACE. DRESSING DRY AND INTACT. WITH VENT SETTINGS AC 12, TV 500, FIO2 40%, PEEP 5, SPO2 100. SUCTIONED FOR AIRWAY CLEARANCE, TOLERATING GTF, GT PATENT, INTACT, IN PLACE NO GASTRIC RESIDUAL. DAUGHTER AT BEDSIDE. WITH C/O BACK PAIN 07/06. F/C PATENT, INTACT, IN PLACE DRAINING WELL TO CLOSED SYSTEM. ON TELE MONITOR A PACING. ISOLATION PRECAUTIONS OBSERVED. HOB KEPT ELEVATED. SIDE RAILS UP AND LOCKED. BED KEPT AT LOWEST POSITION. CALL LIGHT KEPT WITHIN EASY REACH. WILL CONTINUE TO MONITOR.
--- NOTE | 2017-03-05 07:44 | NUR ---
REVENUE INSPECTOR CLOSING NOTES NO SIGNIFICANT CHANGES OVERNIGHT. ALL NEEDS ANTICIPATED AND MET. PRIVATE CAREGIVER AT BEDSIDE. TOLERATING GTF. F/C DRAINING. NO RESPIRATORY DISTRESS NOTED. HOB KEPT ELEVATED. PLEURX IN PLACE, DRESSING DRY AND INTACT. TRACH CARE DONE. ALL WOUND TREATMENT DONE ORDERED. KEPT CLEAN AND DRY. TURNED AND REPOSITIONED Q2 AND PRN. HOB KEPT ELEVATED. ISOLATION PRECAUTIONS OBSERVED. SIDE RAILS UP AND LOCKED. BED KEPT AT LOWEST POSITION. CALL LIGHT KEPT WITHIN EASY REACH. CONTINUITY OF CARE ENDORSED TO AM NURSE.
[2017-03-05 08:00] VITALS: BP 99/49
[2017-03-05 08:29] LABS: BASOPHILS % (AUTO) 0.2 % (0.0-2.0); EOSINOPHILS # (AUTO) 0.2 /CMM (0.0-0.7); EOSINOPHILS % (AUTO) 1.7 % (0.0-6.0); HEMATOCRIT 32 % (33-45); HEMOGLOBIN 10.9 g/dL (11.5-14.8); LYMPHOCYTES # (AUTO) 0.6 /CMM (0.8-4.8); MEAN CORPUSCULAR HEMOGLOBIN 30 PG (26.0-33.0); MEAN CORPUSCULAR HGB CONC 34 g/dl (31.0-36.0); MEAN CORPUSCULAR VOLUME 89 fL (82-100); MONOCYTES # (AUTO) 0.8 /CMM (0.1-1.30); MONOCYTES % (AUTO) 8.6 % (2.0-12.0); NEUTROPHILS # (AUTO) 7.7 /CMM (1.8-8.9); NEUTROPHILS % (AUTO) 83.5 % (43.0-81.0); PLATELET COUNT (AUTO) 197 /CMM (150-450); RDW COEFFICIENT OF VARIATION 18.6 (11.5-15.0); RED BLOOD CELL COUNT(AUTO) 3.65 MIL/uL (4.0-5.2); WHITE BLOOD COUNT (AUTO) 9.3 K/uL (4.3-11.0)
[2017-03-05] MEDS: ACIDOPHILUS/BULGARICUS 1 EACH TAB.CHEW GT SCH ×2 (08:44→17:22)
[2017-03-05] MEDS: ASPIRIN 81 MG TAB.CHEW GT SCH (08:44)
[2017-03-05] MEDS: BUMETANIDE (1 MG) 1 MG TABLET PO SCH (08:44)
[2017-03-05] MEDS: BETHANECHOL CHLORIDE (25 MG) 25 MG TABLET GT SCH ×3 (08:44→17:23)
[2017-03-05] MEDS: AMIODARONE HCL 200 MG TABLET PO SCH ×2 (08:45→17:23)
[2017-03-05 08:46] LABS: CALCIUM, SERUM 8.6 mg/dL (8.5-10.1); CREATININE 1.3 mg/dL (0.6-1.3); POTASSIUM 4.1 mmol/L (3.5-5.1)
[2017-03-05] MEDS: SIMETHICONE 80 MG TAB.CHEW GT SCH ×4 (08:46→21:46)
[2017-03-05] MEDS: MULTIVIT, IRON, MIN NO. 8, FA 1 TAB TABLET GT SCH (08:46)
[2017-03-05] MEDS: COD LIVER OIL/ZINC OXIDE 120 GM TUBE TP SCH (08:47)
[2017-03-05] MEDS: Z GUARD REMEDY 2 OZ OINT TP SCH (08:47)
[2017-03-05] MEDS: NYSTATIN TOP POWDER 15 GM BOTTLE TP SCH ×2 (08:48→17:24)
[2017-03-05] MEDS: NEOMY SULF/BACITRAC ZN/POLY 15 GM TUBE TP SCH (08:48)
[2017-03-05 08:59] LABS: PHOSPHORUS 0.2 mg/dL (2.5-4.9)
[2017-03-05] MEDS: HYDROCODONE/APAP 5/325MG 1 EACH TABLET GT PRN ×2 (09:11→19:41)
--- NOTE | 2017-03-05 11:00 | NUR ---
RN NOTES MORPHINE 1MG IV PRN GIVEN PRIOR TO DRAINING PLEUREX
[2017-03-05] MEDS: MORPHINE SULFATE INJ 2 MG/ML DISP.SYRIN IVP PRN ×2 (11:05→17:23)
[2017-03-05 12:00] VITALS: BP 90/51
--- NOTE | 2017-03-05 12:00 | NUR ---
RN NOTES 200 ML SANGUINOUS FLUID TAKEN OUT FROM LEFT SIDE PLEUREX AND 200 ML SANGUINOUS FLUID TAKEN OUT FROM R SIDE PLEUREX
--- NOTE | 2017-03-05 14:34 | NUR ---
RN NOTES SPOKE WITH DR LANGE REGARDING PT PHOSPHORUS LEVEL 0.2, PER MD REPEAT LAB NOW, THEN REPLACE IF STILL LOW, ORDERS NOTED READ BACK AND CARRIED OUT
[2017-03-05 16:00] VITALS: BP 94/47
--- NOTE | 2017-03-05 17:32 | NUR ---
RN NOTES MORPHINE 1MG IV PRN GIVEN PRIOR TO PLEUREX DRAIN
--- NOTE | 2017-03-05 17:47 | NUR ---
Pt tolerated current vent settings well. No changes made. Pt trach is secure. Vent is plugged into a red outlet, alarms are set and audible. Ambu bag at bedside. Addendum: 03/05/17 at 1749 by DANIEL WALLACE RT Amended: Links added.
--- NOTE | 2017-03-05 18:45 | NUR ---
RN NOTES DRAINED PLEURAL FLUID VIA PLEURX CATH 230 ML SANGUINOUS FLUID ON THE RIGHT, 190ML SANGUINOUS FLUID FROM THE LEFT
[2017-03-05] MEDS ORDERED: ALBUTEROL FS 2.5 MG/0.5 ML VIAL.NEB NEB PRN (19:30)
[2017-03-05] MEDS ORDERED: IPRATROPIUM NEB FS 0.5 MG/2.5 ML AMPUL.NEB IH PRN (19:30)
--- NOTE | 2017-03-05 19:30 | NUR ---
DIELECTRIC TESTING MACHINE OPERATOR INITIAL NOTES RECEIVED PATIENT IN BED, AWAKE, NON-VERBAL, A/OX3, ABLE TO MAKE NEEDS KNOWN BY MOUTHING WORDS. CAREGIVER AT BEDSIDE. RESPIRATIONS EVEN AND UNLABORED. WITH BILATERAL PLEURX IN PLACE. DRESSING DRY AND INTACT. TRACH MIDLINE AND INTACT, ON MECHANICAL VENT AT PRESCRIBED SETTINGS AC 12, TV 500, FIO2 40%, PEEP 5, SPO2 100%, TOLERATING WELL. PT PATENT AND INTACT, ONGOING GTF PRESCRIBED. F/C PATENT, INTACT, IN PLACE. ON TELEMETRY MONITORING, REVEALING A PACING. ISOLATION PRECAUTIONS OBSERVED. HOB KEPT ELEVATED. SIDE RAILS UP AND LOCKED. BED KEPT AT LOWEST POSITION. CALL LIGHT KEPT WITHIN EASY REACH. WILL CONTINUE TO MONITOR.
[2017-03-05 20:00] VITALS: BP 97/48
[2017-03-05] MEDS: TRAMADOL HCL 50 MG TABLET GT PRN (21:45)
[2017-03-05] MEDS: ESCITALOPRAM OXALATE (10 MG) 10 MG TABLET GT SCH (21:46)
[2017-03-06] VITALS: BP 115/67
--- NOTE | 2017-03-06 00:45 | NUR ---
RN NOTES PATIENT PREMEDICATED WITH MORPHINE PRIOR TO EMPTYING PLEURX. RIGHT SIDE 350, LEFT SIDE 225, SEROSANGUINOUS OUTPUT NOTED. PATIENT TOLERATED PROCEDURE WELL. WILL CONTINUE TO CLOSELY MONITOR
[2017-03-06] MEDS: MORPHINE SULFATE INJ 2 MG/ML DISP.SYRIN IVP PRN ×2 (00:50→17:16)
[2017-03-06] MEDS: HYDROCODONE/APAP 5/325MG 1 EACH TABLET GT PRN ×2 (03:51→21:19)
[2017-03-06 04:00] VITALS: BP 105/41
[2017-03-06] MEDS: PANTOPRAZOLE 40 MG/PACK PACK GT SCH (05:47)
[2017-03-06 06:46] LABS: BASOPHILS % (AUTO) 0.2 % (0.0-2.0); HEMATOCRIT 34 % (33-45); HEMOGLOBIN 11.2 g/dL (11.5-14.8); LYMPHOCYTES # (AUTO) 0.5 /CMM (0.8-4.8); LYMPHOCYTES % (AUTO) 5.1 % (20.0-44.0); MEAN CORPUSCULAR HEMOGLOBIN 30 PG (26.0-33.0); MEAN CORPUSCULAR HGB CONC 34 g/dl (31.0-36.0); MEAN CORPUSCULAR VOLUME 90 fL (82-100); MONOCYTES # (AUTO) 0.8 /CMM (0.1-1.30); MONOCYTES % (AUTO) 7.8 % (2.0-12.0); NEUTROPHILS # (AUTO) 8.4 /CMM (1.8-8.9); NEUTROPHILS % (AUTO) 86.9 % (43.0-81.0); PLATELET COUNT (AUTO) 190 /CMM (150-450); RDW COEFFICIENT OF VARIATION 18.6 (11.5-15.0); RED BLOOD CELL COUNT(AUTO) 3.75 MIL/uL (4.0-5.2); WHITE BLOOD COUNT (AUTO) 9.7 K/uL (4.3-11.0)
--- NOTE | 2017-03-06 06:50 | NUR ---
RN CLOSING NOTES PATIENT PREMEDICATED WITH MORPHINE PRIOR TO EMPTYING PLEURX. RIGHT SIDE 200, LEFT SIDE 200, SEROSANGUINOUS OUTPUT NOTED. PATIENT TOLERATED PROCEDURE WELL. WILL CONTINUE TO CLOSELY MONITOR. WILL ENDORSE PATIENT TO THE AM SHIFT NURSE FOR [facility]
[2017-03-06 07:26] LABS: CALCIUM, SERUM 8.8 mg/dL (8.5-10.1); CREATININE 1.1 mg/dL (0.6-1.3); PHOSPHORUS 3.2 mg/dL (2.5-4.9); POTASSIUM 4.2 mmol/L (3.5-5.1)
--- NOTE | 2017-03-06 07:40 | NUR ---
RN NOTES RECEIVED PATIENT IN BED, AWAKE, NON-VERBAL, A/OX3, ABLE TO MAKE NEEDS KNOWN BY MOUTHING WORDS. CAREGIVER AT BEDSIDE. RESPIRATIONS EVEN AND UNLABORED. WITH BILATERAL PLEURX IN PLACE. DRESSING DRY AND INTACT. TRACH MIDLINE AND INTACT, ON MECHANICAL VENT AT PRESCRIBED SETTINGS AC 12, TV 500, FIO2 40%, PEEP 5, SPO2 100%, TOLERATING WELL. PT PATENT AND INTACT, ONGOING GTF FIBERSOURCE@45ML/HR, NO RESIDUAL. F/C PATENT, INTACT, IN PLACE. ISOLATION PRECAUTIONS OBSERVED. HOB KEPT ELEVATED. SIDE RAILS UP AND LOCKED. BED KEPT AT LOWEST POSITION. CALL LIGHT KEPT WITHIN EASY REACH. WILL CONTINUE TO MONITOR.
[2017-03-06 08:00] VITALS: BP 88/40
[2017-03-06] MEDS: FIBERSOURCE HN 1,000 ML BOTTLE GT PRN (08:33)
[2017-03-06] MEDS: MULTIVIT, IRON, MIN NO. 8, FA 1 TAB TABLET GT SCH (08:34)
[2017-03-06] MEDS: ASPIRIN 81 MG TAB.CHEW GT SCH (08:34)
[2017-03-06] MEDS: BETHANECHOL CHLORIDE (25 MG) 25 MG TABLET GT SCH ×3 (08:34→17:16)
[2017-03-06] MEDS: BUMETANIDE (1 MG) 1 MG TABLET PO SCH ×2 (08:34→17:16)
[2017-03-06] MEDS: ACIDOPHILUS/BULGARICUS 1 EACH TAB.CHEW GT SCH ×2 (08:34→17:16)
[2017-03-06] MEDS: Z GUARD REMEDY 2 OZ OINT TP SCH (08:34)
[2017-03-06] MEDS: SIMETHICONE 80 MG TAB.CHEW GT SCH ×4 (08:35→21:19)
[2017-03-06] MEDS: NEOMY SULF/BACITRAC ZN/POLY 15 GM TUBE TP SCH (08:36)
[2017-03-06] MEDS: COD LIVER OIL/ZINC OXIDE 120 GM TUBE TP SCH (08:36)
[2017-03-06] MEDS: NYSTATIN TOP POWDER 15 GM BOTTLE TP SCH ×2 (08:36→17:17)
--- NOTE | 2017-03-06 10:10 | NUR ---
RN NOTES SPOKE WITH DR KELLY, PT UPDATE GIVEN. PER DR KELLY DECREASE THE FREQUENCY OF DRAIN TO Q12H. AND CHECK CHEST XRAY. ORDERS READ BACK NOTED AND CARRIED OUT
[2017-03-06] MEDS: AMIODARONE HCL 200 MG TABLET PO SCH ×2 (10:22→17:16)
[2017-03-06 12:00] VITALS: BP 91/41
[2017-03-06] MEDS ORDERED: METOLAZONE 2.5 MG TABLET PO ONE (12:00)
[2017-03-06 16:00] VITALS: BP 93/39
--- NOTE | 2017-03-06 19:30 | NUR ---
CLOTH WORKER INITIAL NOTES RECEIVED PATIENT IN BED, AWAKE, NON-VERBAL, A/OX3, ABLE TO MAKE NEEDS KNOWN BY MOUTHING WORDS. CAREGIVER AT BEDSIDE. RESPIRATIONS EVEN AND UNLABORED. WITH BILATERAL PLEURX IN PLACE. DRESSING DRY AND INTACT. TRACH MIDLINE AND INTACT, ON MECHANICAL VENT AT PRESCRIBED SETTINGS AC 12, TV 500, FIO2 40%, PEEP 5, SPO2 100%, TOLERATING WELL. GT PATENT AND INTACT, ONGOING GTF PRESCRIBED, NO GASTRIC RESIDUALS AT THIS TIME. F/C PATENT, INTACT, IN PLACE. ON TELEMETRY MONITORING, REVEALING A PACING. ISOLATION PRECAUTIONS OBSERVED. HOB KEPT ELEVATED. SIDE RAILS UP AND LOCKED. BED KEPT AT LOWEST POSITION. CALL LIGHT KEPT WITHIN EASY REACH. WILL CONTINUE TO MONITOR.
[2017-03-06 20:00] VITALS: BP 102/39
[2017-03-06] MEDS: ESCITALOPRAM OXALATE (10 MG) 10 MG TABLET GT SCH (21:19)
[2017-03-07] VITALS (7 sets, daily range): BP systolic 86–98; BP diastolic 33–66
[2017-03-07] MEDS: PANTOPRAZOLE 40 MG/PACK PACK GT SCH (06:00)
[2017-03-07] MEDS: MORPHINE SULFATE INJ 2 MG/ML DISP.SYRIN IVP PRN ×2 (06:00→17:39)
--- NOTE | 2017-03-07 06:55 | NUR ---
RN CLOSING NOTES PLEURX DRAINED, RIGHT SIDE WITH 415CC OF SEROSANGUINOUS FLUID, LEFT SIDE WITH 300CC. PATIENT MEDICATED BEFORE PROCEDURE FOR PAIN MANAGEMENT, TOLERATED WELL. WILL ENDORSE THE PATIENT TO THE AM SHIFT NURSE FOR M[place]
--- NOTE | 2017-03-07 07:15 | NUR ---
RN INITIAL NOTES: Rec'd pt awake on bed, not in any distress, able to make needs known. Pt on mech vent via trache (Shiley 6) w/ ff settings: AC 12, TV 600, FiO2 40%, PEEP 5, saturating at 100%. Suctioned secretions. On telemonitoring, A pacing w/ HR 60 bpm. Pt has RFA G22, SL, flushed, patent, C/D/I, no signs of infection/ infiltration noted. Has patent & intact FC draining to adequate yellowish urine output. Has B Pleurx in place, patent & intact w/ clean & dry dressing. Has patent & intact PEG, on continuous GT feeding Fibersource at 45 cc/hr infusing well. Family at bedside. Provided comfort & safety measures. Call light placed w/in reached. Bed kept low & in locked position. Will turn, reposition, offload heels as per protocol. Isolation precaution observed. Will continue to monitor.
[2017-03-07] MEDS: ACIDOPHILUS/BULGARICUS 1 EACH TAB.CHEW GT SCH ×2 (08:52→17:45)
[2017-03-07] MEDS: MULTIVIT, IRON, MIN NO. 8, FA 1 TAB TABLET GT SCH (08:52)
[2017-03-07] MEDS: SIMETHICONE 80 MG TAB.CHEW GT SCH ×4 (08:53→21:27)
[2017-03-07] MEDS: BETHANECHOL CHLORIDE (25 MG) 25 MG TABLET GT SCH ×3 (08:53→17:45)
[2017-03-07] MEDS: AMIODARONE HCL 200 MG TABLET PO SCH ×2 (08:54→17:46)
[2017-03-07] MEDS: BUMETANIDE (1 MG) 1 MG TABLET PO SCH ×2 (08:54→17:45)
[2017-03-07] MEDS: ASPIRIN 81 MG TAB.CHEW GT SCH (08:54)
[2017-03-07] MEDS: COD LIVER OIL/ZINC OXIDE 120 GM TUBE TP SCH (08:55)
[2017-03-07] MEDS: FIBERSOURCE HN 1,000 ML BOTTLE GT PRN (08:55)
[2017-03-07] MEDS: Z GUARD REMEDY 2 OZ OINT TP SCH (08:56)
[2017-03-07] MEDS: NYSTATIN TOP POWDER 15 GM BOTTLE TP SCH ×2 (08:57→17:46)
[2017-03-07] MEDS: VITAMINS A AND D 56.7 GM TUBE TP PRN (08:57)
[2017-03-07] MEDS: NEOMY SULF/BACITRAC ZN/POLY 15 GM TUBE TP SCH (08:58)
--- NOTE | 2017-03-07 09:30 | NUR ---
RN NOTES: Pt seen & examined by Dr. Garcia & Dr. Hernandez w/ orders made & carried out. Pt for poss DC, informed TG Pascual.
[2017-03-07] MEDS: HYDROCODONE/APAP 5/325MG 1 EACH TABLET GT PRN (10:48)
--- NOTE | 2017-03-07 15:00 | NUR ---
RN NOTES: As per Shoaib MACIAS, Angie Travis will not be able to do bilateral pleurx draining. Family made aware, verbalized understanding.
--- NOTE | 2017-03-07 16:00 | NUR ---
RN NOTES: Pt offered bed bath but refuses, family at bedside. Wound care & perineal care done as requested.
--- NOTE | 2017-03-07 17:41 | NUR ---
PT. C/O PAIN BILATERAL CHEST 06/05 REQUESTED MORPHINE PRIOR TO PLEUR X DRAINAGE.
--- NOTE | 2017-03-07 18:01 | NUR ---
RT END OF THE SHIFT REPORT: PT. 86 Y OLD FEMALE REMAIN TRACH SHILEY # 6 ON VENT WITH NOTED SETTINGS, ALARMS ARE SET AND FUNCTIONAL, B/S CLEAR DIM. ELIE CURRENT SETTINGS, NO DISTRESS NOTED T/O SHIFT PT. REMAIN STABLE. EQUAL CHEST RISE NOTED. HME CHANGED, AMBU BAG REMAIN AT THE BEDSIDE. REPORT WILL PASS ON TO PM SHIFT. Addendum: 03/07/17 at 1803 by JOHANNE HARDIN RT Amended: Links added.
--- NOTE | 2017-03-07 19:29 | NUR ---
RN CLOSING NOTES: No acute changes noted w/in shift. Pt tolerated prescribed mech vent settings. Suctioned secretions. Pt's RFA G22, SL, flushed, patent, C/D/I, no signs of infection/ infiltration noted. Has patent & intact FC draining to adequate yellowish urine output. Has B Pleurx in place, patent & intact w/ clean & dry dressing. Bilateral chest Pleurx draining done c/o Samara, CN (Right 300mL, Left 250mL). Has patent & intact PEG, on continuous GT feeding Fibersource at 45 cc/hr infusing well, no residuals upon checking. Family at bedside. Kept well rested & comfortable. Call light placed w/in reached. Bed kept low & in locked position. Turned, repositioned & offloaded heels. Wound care done. Isolation precaution observed. Endorsed to PM RN Anival for MONTRLEL.
--- NOTE | 2017-03-07 19:30 | NUR ---
CHILDRENS CLUB ATTENDANT INITIAL NOTES RECEIVED PATIENT IN BED, AWAKE, NON-VERBAL, A/OX3, ABLE TO MAKE NEEDS KNOWN BY MOUTHING WORDS. CAREGIVER AT BEDSIDE. RESPIRATIONS EVEN AND UNLABORED. TRACH MIDLINE AND INTACT, ON MECHANICAL VENT AT PRESCRIBED SETTINGS AC 12, TV 500, FIO2 40%, PEEP 5, SPO2 100%, TOLERATING WELL. NOTED WITH BILATERAL PLEURX IN PLACE, DRESSING CLEAN, DRY, AND INTACT. GT PATENT AND INTACT, ONGOING GTF PRESCRIBED, NO GASTRIC RESIDUALS AT THIS TIME. F/C PATENT, INTACT, CONNECTED TO DRAINAGE BAG. ON TELEMETRY MONITORING, REVEALING A PACING. ISOLATION PRECAUTIONS OBSERVED. HOB KEPT ELEVATED. SIDE RAILS UP AND LOCKED. BED KEPT IN LOWEST AND LOCKED POSITION. CALL LIGHT KEPT WITHIN EASY REACH. WILL CONTINUE TO MONITOR.
[2017-03-07] MEDS: ESCITALOPRAM OXALATE (10 MG) 10 MG TABLET GT SCH (21:27)
[2017-03-08] VITALS: BP 96/41
[2017-03-08 04:00] VITALS: BP 99/40
[2017-03-08 06:00] VITALS: BP 103/47
[2017-03-08] MEDS: MORPHINE SULFATE INJ 2 MG/ML DISP.SYRIN IVP PRN (06:41)
--- NOTE | 2017-03-08 06:45 | NUR ---
RN CLOSING NOTES PLEURX DRAINED. PATIENT PREMEDICATED WITH MORPHINE 1MG FOR PAIN. PATIENT TOLERATED PROCEDURE WELL. LEFT SIDE 300CC, RIGHT SIDE 325CC. WILL ENDORSE THE PATIENT TO THE AM SHIFT NURSE FOR CONTINUITY OF CARE
[2017-03-08] MEDS: FIBERSOURCE HN 1,000 ML BOTTLE GT PRN ×2 (06:56→15:28)
[2017-03-08] MEDS: PANTOPRAZOLE 40 MG/PACK PACK GT SCH (07:02)
--- NOTE | 2017-03-08 07:27 | NUR ---
Received female dariela pt on mechanical vent. Pt dariela is secure. Vent is plugged into a red outlet, alarms are audible, and BVM is at bedside. Pt placed on CPAP 5 PSV 12 per MD order. Addendum: 03/08/17 at 1346 by DANIEL WALLACE RT Amended: Links added.
[2017-03-08 08:00] VITALS: BP 99/42
--- NOTE | 2017-03-08 08:00 | NUR ---
RN INITIAL NOTE PT RECEIVED IN BED, NO S/S OF PAIN OR DISCOMFORT. RESTING COMFORTABLY. PT IS ALERT AND ORIENTED. IS NON VERBAL, MOUTHS WORDS. DAUGHTER AT BEDSIDE. PT HAS TRACH. SHILEYT #6, AC 12, TV 500, FI02 40%, PEEP 5, SCHEDULED FOR WEANING TODAY. RESPIRATIONS ARE EVEN AND UNLABORED. A PACING ON TELE MONITOR, 60'S. SKIN WARM AND DRY TO TOUCH. CALLE CATHETER DRAINING WITH GRAVITY. GTUBE PATENT, FIBERSOURCE RUNNING AT 45ML/HR. RIGHT FOREARM 22G, SL. FLUSHED AND PATENT. SAFETY MEASURES IN PLACE. BED IN LOCKED LOW POSITION. TWO SIDE RAILS UP. CALL LIGHT WITHIN REACH. WILL CONTINUE TO MONITOR.
[2017-03-08 08:35] LABS: ABG BASE EXCESS 9.8 mmol/L; ABG OXYGEN SATURATION 98.4 % (92.0-98.5); ABG PCO2 49.8 mmHg (35.0-45.0); ABG PH 7.464 (7.350-7.450); ABG PO2 167.5 mmHg (75.0-100.0); AaDO2 60.4 mmHg; COHb 0.5 % (0.5-1.5); MetHb 0.8 % (0.0-1.5); O2Hb 97.1 % (94.0-97.0); SITE, ABG Right Radial; VENT MODE, BG CPAP 5 PSV12 40%
[2017-03-08] MEDS: BETHANECHOL CHLORIDE (25 MG) 25 MG TABLET GT SCH ×2 (08:53→13:00)
[2017-03-08] MEDS: ACIDOPHILUS/BULGARICUS 1 EACH TAB.CHEW GT SCH (08:53)
[2017-03-08] MEDS: ACETAMINOPHEN 650 MG/20.3 ML UDC GT PRN (08:53)
[2017-03-08] MEDS: BUMETANIDE (1 MG) 1 MG TABLET PO SCH (08:53)
[2017-03-08] MEDS: ASPIRIN 81 MG TAB.CHEW GT SCH (08:53)
[2017-03-08] MEDS: MULTIVIT, IRON, MIN NO. 8, FA 1 TAB TABLET GT SCH (08:53)
[2017-03-08] MEDS: AMIODARONE HCL 200 MG TABLET PO SCH (08:54)
[2017-03-08] MEDS: CYANOCOBALAMIN 1,000 MCG/ML VIAL IM SCH (08:54)
[2017-03-08] MEDS: COD LIVER OIL/ZINC OXIDE 120 GM TUBE TP SCH (08:55)
[2017-03-08] MEDS: Z GUARD REMEDY 2 OZ OINT TP SCH (08:55)
[2017-03-08] MEDS: NYSTATIN TOP POWDER 15 GM BOTTLE TP SCH (08:55)
[2017-03-08] MEDS: NEOMY SULF/BACITRAC ZN/POLY 15 GM TUBE TP SCH (08:55)
[2017-03-08] MEDS: SIMETHICONE 80 MG TAB.CHEW GT SCH ×2 (08:55→13:00)
[2017-03-08 12:00] VITALS: BP 95/42
[2017-03-08 16:00] VITALS: BP 108/47
--- NOTE | 2017-03-08 18:59 | NUR ---
RN FINAL NOTE PATIENT DISCHARGED TO [facility] REPORT GIVEN TO EMT. CALLED [facility] PER [facility]J CHARGE NURSE IS BUSY AND WILL CALL BACK.
== END 2017-03-08 20:00 | disposition short-term general hospital (02) | DRG 280 ==
LOC: ER 15:22 → TELE1 16:37
PROVIDERS: ADMIT Internal Medicine; ATTEND Internal Medicine
PROC: 5A1955Z Respiratory Ventilation, Greater than 96 Consecutive Hours (ICD-10-PCS; principal; 2017-02-24)
PROC: 0W993ZZ Drainage of Right Pleural Cavity, Percutaneous Approach (ICD-10-PCS; 2017-02-27)
PROC: 0W9B3ZZ Drainage of Left Pleural Cavity, Percutaneous Approach (ICD-10-PCS; 2017-02-28)
PROC: 30233N1 Transfusion of Nonautologous Red Blood Cells into Peripheral Vein, Percutaneous Approach (ICD-10-PCS; 2017-03-02)
PROC: 0W9B30Z Drainage of Left Pleural Cavity with Drainage Device, Percutaneous Approach (ICD-10-PCS; 2017-03-03)
PROC: 0W9930Z Drainage of Right Pleural Cavity with Drainage Device, Percutaneous Approach (ICD-10-PCS; 2017-03-03)
DX: I11.0 Hypertensive heart disease with heart failure (principal); J96.20 Acute and chronic respiratory failure, unspecified whether with hypoxia or hypercapnia; I21.4 Non-ST elevation (NSTEMI) myocardial infarction; E46 Unspecified protein-calorie malnutrition; Z99.11 Dependence on respirator [ventilator] status; J90 Pleural effusion, not elsewhere classified; N39.0 Urinary tract infection, site not specified; I50.33 Acute on chronic diastolic (congestive) heart failure; Z93.0 Tracheostomy status; E78.5 Hyperlipidemia, unspecified; I25.10 Atherosclerotic heart disease of native coronary artery without angina pectoris; I48.91 Unspecified atrial fibrillation; Z93.1 Gastrostomy status; Z87.01 Personal history of pneumonia (recurrent); R13.10 Dysphagia, unspecified; K21.9 Gastro-esophageal reflux disease without esophagitis; L98.9 Disorder of the skin and subcutaneous tissue, unspecified; I35.0 Nonrheumatic aortic (valve) stenosis; S81.802A Unspecified open wound, left lower leg, initial encounter; S81.801A Unspecified open wound, right lower leg, initial encounter; X58.XXXA Exposure to other specified factors, initial encounter; Y93.9 Activity, unspecified; Y92.129 Unspecified place in nursing home as the place of occurrence of the external cause; D69.2 Other nonthrombocytopenic purpura; B96.20 Unspecified Escherichia coli [E. coli] as the cause of diseases classified elsewhere; Z85.118 Personal history of other malignant neoplasm of bronchus and lung; D72.829 Elevated white blood cell count, unspecified; L85.3 Xerosis cutis; D64.9 Anemia, unspecified; I25.2 Old myocardial infarction; Z98.61 Coronary angioplasty status; Z68.26 Body mass index [BMI] 26.0-26.9, adult
CPT/HCPCS: 31720; 36415; 36600; 71010-TC; 76942-TC; 80048-TC; 80053-TC; 80076-TC; 82803-TC; 82945-TC; 83615-TC; 83735-TC; 83880; 84100-TC; 84155-TC; 84443-TC; 84484-TC; 85025-TC; 85610-TC; 85730-TC; 86850-TC; 86921-TC; 87040-TC; 87070-TC; 87081-TC; 87086-TC; 87186-TC; 88305-TC; 88312-TC; 94003-TC; 94760-TC; A4216; A4606; A6248; A6253; A6402; A6403; J0690; J1160; J1940; J2185; J2270; J2405; J3010; J3420; J3490; J7050; P9016-BL; P9045; Z7610